=== PATIENT | female | born 1945 | race Caucasian/White ===

== ENCOUNTER → 2016-03-05 | Outpatient (REF) | payer MEDICARE ==
[~2016-03-05] MED LIST: /WARF25TA; 8 HO650T PO; ACET50TA PO; ACET50TAOT PO; ACET65TA; ALEN35TA PO; ALLO10TA PO; AMLO10TA PO; ASPI325T; ASPI81TA85 PO; ASPI81TAEC PO; BACITAB; BACITAB3 PO; BACT400T OR; CALC0.5C OR; CALC12502 OR; CALC1CAP31 PO; CALC500C16 PO; CIPR500T89 PO; COUM1TAB17 PO; COUM6TAB PO; CYCL10CAP PO; CYCL50CA PO; CYCLO25CA PO; DARV100T; DULO20CA; FLAG500T PO; FOLI1TAB OR; FOLI1TAB2 PO; FOSRENOL; FURO40TA2 PO; KEPP250T5 PO; KEPP500T6 PO; KPHOS PO; LASI40TA OR; LASI40TA PO; LOPR50TA PO; LUTE20CA PO; MAGN500T2 OR; MAGO400T PO; MED REC COMPLETE; MYFO180T PO; NEUR100C OR; NEUR300C PO; NORV5TAB PO; OMEP20CA3 PO; OMEP20TA7 PO; PERCOCET PO; POTA50TAB PO; PRED10TA2; PRED5TA PO; PRED5TAB OR; PRIL20CA; PROBCAP13; RENAL CAPS; RENVELA; SPIR25TA2 PO; TACR0.5C3 PO; TACR1CAP3 PO; TACR5CAP OR; TACROLIMUS PO; TRAM50TA2 PO; TUMS500C PO; TYLE325T5 PO; ULTR50TA PO; VANC250C2 PO; VITAMIN D50000 UNT OR; WARF05TA PO; WARF5VL; ZEMPLAR; ZYLO300T4 PO; myfortic OR; sensipar
[2016-03-05 13:29] LABS: INR 3.2
== END ==
LOC: M LAB REF 12:48
PROVIDERS: ATTEND Internal Medicine Nephrology
DX: I82.501 Chronic embolism and thrombosis of unspecified deep veins of right lower extremity (principal); Z79.01 Long term (current) use of anticoagulants

== ENCOUNTER → 2016-03-13 | Outpatient (REF) | payer MEDICARE ==
[~2016-03-13] MED LIST changes: +LOPR1TAB6 PO; -LOPR50TA PO
== END ==
LOC: M LAB REF 17:19
PROVIDERS: ATTEND Internal Medicine Nephrology
DX: N39.0 Urinary tract infection, site not specified (principal); Z94.0 Kidney transplant status

== ENCOUNTER → 2016-04-05 | Outpatient (REF) | payer MEDICARE ==
[2016-04-05 13:26] LABS: INR 2.6
== END ==
LOC: M LAB REF 12:44
PROVIDERS: ATTEND Internal Medicine Nephrology
DX: I82.501 Chronic embolism and thrombosis of unspecified deep veins of right lower extremity (principal); Z79.01 Long term (current) use of anticoagulants

== ENCOUNTER → 2016-04-18 | Outpatient (REF) | payer MEDICARE | LOC: M LAB REF 13:00 | PROVIDERS: ATTEND Internal Medicine Nephrology | DX: N39.0 Urinary tract infection, site not specified (principal); Z94.0 Kidney transplant status ==

== ENCOUNTER 2016-04-25 12:37 | Observation (INO) | payer MEDICARE ==
[~2016-04-25] VITALS: Ht 165.1 cm; Wt 85.0 kg
[2016-04-25] MEDS ORDERED: FERR325T3 PO (12:57)
[2016-04-25] MEDS ORDERED: FISH500C PO (12:57)
[2016-04-25] MEDS ORDERED: CYCL25CA5 PO (12:57)
[2016-04-25] MEDS ORDERED: AMIL5TA PO (12:57)
[2016-04-25] MEDS ORDERED: COLA100C3 PO (12:57)
[2016-04-25] MEDS ORDERED: METO12TA PO (12:57)
[2016-04-25] MEDS ORDERED: TYLE500T78 PO (12:57)
[2016-04-25] MEDS ORDERED: TRAM50TA2 PO (12:57)
[2016-04-25] MEDS ORDERED: WARF4TAB52 PO (12:57)
[2016-04-25] MEDS ORDERED: LOSA50TA20 PO (12:57)
[2016-04-25] MEDS ORDERED: OXYB10TA PO (12:57)
[2016-04-25] MEDS ORDERED: ONDANSETRON 4MG/2ML VIAL (J2405) IV ONE (14:30)
[2016-04-25 15:00] LABS: BASO % 0.3 % (0.0-1.0); EOS # 0.2 K/mm3 (0.0-0.50); LARGE UNSTAINED CELL # 0.1 K/mm3 (0.0-0.4); LARGE UNSTAINED CELL % 1.9 % (0.0-4.0); LYMPH # 1.3 K/mm3 (1.5-4.5); LYMPH % 17.8 % (24.0-44.0); MEAN CORPUSCULAR HEMOGLOBIN 31.5 pg (27.0-33.0); MEAN CORPUSCULAR HGB CONC 31.9 g/dl (32.0-36.5); MEAN CORPUSCULAR VOLUME 98.8 fl (80.0-96.0); MONO # 0.3 K/mm3 (0.0-0.8); MONO % 4.7 % (0.0-5.0); NEUTROPHILS # 5.3 K/mm3 (1.8-7.7); NEUTROPHILS % 73.3 % (36.0-66.0); PLATELET COUNT, AUTOMATED 221 k/mm3 (150-450); RED CELL DISTRIBUTION WIDTH 15.4 % (11.5-14.5); WHITE BLOOD COUNT 7.2 K/mm3 (4.0-10.0)
[2016-04-25 15:09] LABS: INR 2.9
[2016-04-25] MEDS: NS 1,000 ML IV SCH ×2 (15:17→21:55)
[2016-04-25] MEDS: MORPHINE 2 MG/ML 1ML SYRINGE IV PRN ×2 (15:21→18:38)
[2016-04-25 15:26] LABS: ALBUMIN 3.3 GM/DL (3.2-5.2); ALKALINE PHOSPHATASE 60 U/L (45-117); ALT/SGPT 17 U/L (12-78); ANION GAP 5 MEQ/L (8-16); AST/SGOT 21 U/L (15-37); BILIRUBIN,DIRECT 0.2 MG/DL (0.0-0.2); BILIRUBIN,TOTAL 0.6 MG/DL (0.2-1.0); BLOOD UREA NITROGEN 50 MG/DL (7-18); CARBON DIOXIDE LEVEL 28 MEQ/L (21-32); CHLORIDE LEVEL 105 MEQ/L (98-107); CREATININE FOR GFR 1.83 MG/DL (0.55-1.02); GLOMERULAR FILTRATION RATE 29.1 (>39); GLUCOSE, FASTING 108 MG/DL (83-110); POTASSIUM SERUM 4.5 MEQ/L (3.5-5.1); SODIUM LEVEL 138 MEQ/L (136-145); TOTAL PROTEIN 6.6 GM/DL (6.4-8.2)
--- NOTE | 2016-04-25 16:12 | REP ---
Left lower extremity Duplex Doppler venous ultrasound: Real time compression and duplex Doppler interrogation of the left lower extremity deep venous system is performed. The left common femoral, superficial femoral and popliteal veins are fully compressible with transducer pressure and demonstrate normal spontaneous and phasic flow, without evidence of deep venous thrombosis. Impression: No evidence of deep venous thrombosis of the left lower extremity femoral popliteal venous system. Signed by Narinder Garcia MD 04/25/2016 04:04 P
--- NOTE | 2016-04-25 16:36 | REP ---
CT ABDOMEN AND PELVIS WITHOUT IV CONTRAST: CT abdomen and pelvis is performed without oral or IV contrast. Sagittal and coronal reconstruction images are performed. Comparison is made with prior study of 10/20/2014. Visualized lung bases demonstrate chronic fibrotic changes of a mild degree. The liver demonstrates multiple hypodense nodules which measure cystic density with no change since the prior study. Scattered calcifications are also seen throughout the liver. The spleen is grossly unremarkable in appearance. Adrenals and pancreas are grossly unremarkable. No lower [place] kidneys are seen. Patient has had a cholecystectomy. Prominent common bile duct appears normal. There is no abdominal aortic aneurysm. There is no adenopathy. There is no free air or free fluid. There is no bowel wall thickening. Left renal transplant in the pelvis appears grossly unremarkable. There is no hydronephrosis or nephrolithiasis. Ureter connects with the bladder on the left anteriorly. There is no bladder calculus is seen. 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 There is no other evidence of pelvic mass. Chronic postsurgical scarring is seen in the anterior abdominal wall. IMPRESSION: Chronic changes of the liver appear stable since 2014. Left renal transplant without hydronephrosis or nephrolithiasis. No acute findings. Signed by Narinder Garcia MD 04/25/2016 05:25 P
--- NOTE | 2016-04-25 18:07 | ECGEPIP ---
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
[2016-04-25] MEDS ORDERED: ZYLO300T4 PO (18:51)
[2016-04-25] MEDS ORDERED: FISH1000 PO (18:51)
[2016-04-25] MEDS ORDERED: OXYC1TAB23 PO (18:51)
[2016-04-25] MEDS ORDERED: CYCLO25CA PO ×2 (18:51)
[2016-04-25] MEDS ORDERED: LEVO250T24 PO (18:51)
[2016-04-25] MEDS ORDERED: WARF-60 PO (18:51)
[2016-04-25] MEDS ORDERED: FURO40TA2 PO (18:51)
[2016-04-25] MEDS ORDERED: ACETAMINOPHEN TAB 650MG DOSE (2X325MG) PO PRN (20:30)
[2016-04-25] MEDS ORDERED: DOCUSATE SODIUM 100 MG CAP PO PRN (20:30)
[2016-04-25] MEDS ORDERED: ONDANSETRON 4MG/2ML VIAL (J2405) IV PRN (20:30)
--- NOTE | 2016-04-25 21:07 | HPE ---
DATE OF ADMISSION: 04/25/2016 This is a patient of Dr. Watts. CHIEF COMPLAINT: Pain in the abdomen. SUMMARY OF PRESENTATION: This is a 70-year-old female status post transplant kidney who started yesterday with some nausea. Developed left lower quadrant pain and right upper and lower quadrant pain. She says this has been an ongoing issue for a long time. It is usually associated with need for a bowel movement. It has been 3 days since her last bowel movement. This time was a little bit different, as the pain was somewhat more intense, and she was nauseous. Her made her come to the hospital today. She had a workup done, including imaging with a CT scan of her abdomen and pelvis, lab work and ultrasound of the left lower extremity, which has chronic lymphedema, which was unrevealing. The pain was immediately controlled with the use of morphine, which has made her much more comfortable. This morning when she awoke, she felt good, and then pain returned. In the last 2 days all she has eaten is a biscuit. She has been drinking water but has not been very hungry. She has chronic chills and a chronic cough that have not changed. She was worried that this presentation might be related to a chronic wound she has on her chest, the site of a surgical incision which does not heal well. PAST SURGICAL HISTORY: Notable for: 1. An esophagogastroduodenoscopy (EGD) and colonoscopy done in November [address] Lynn. 2. Removal of seroma in [address] Arana. 3. Aspiration of perirectal abscess in the [facility] (ER) in 2013 and 2012. 4. Ventral hernia repair with pig skin mesh graft in 2009. 5. Cadaveric kidney transplant. 6. Cataract removal with implants. 7. Parathyroid surgery 2007. 8. A temporal artery biopsy in 2005. 9. Laparoscopic gallbladder removal in 2004. 10. Perforated bowel following insertion of peritoneal dialysis catheter in 2002. 11. Left tear duct surgery in 2001. 12. Laparoscopic removal of [place] kidneys bilaterally in 1998. 13. Removal of kidney transplant, right groin, 1995. 14. Cadaveric kidney transplant to the right groin. 15. She also had removal of an intestinal bezoar that year. 16. She has had various grafting done. 17. A dilatation and curettage (DAC) in 1985. 18. An appendectomy in 1963. PAST MEDICAL HISTORY: Notable for: 1. Gout. 2. Polycystic liver and kidney disease. 3. Dialysis, which first started in 1993. 4. History of seizures. 5. Lymphedema in the left leg, which is chronic. 6. An episode of atrial fibrillation in 2005. 7. 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 9. Vertigo. 10. Glaucoma and macular degeneration. FAMILY HISTORY: Notable for a father who at age 67 with cancer of the esophagus and stomach. Mother at age 65 with complication of polycystic kidney disease. ALLERGIES: She has allergies listed to KEFLEX and CODEINE. MEDICATIONS AT HOME: Listed as: - Having completed a course of Levaquin. - Lutein. - allopurinol 300 mg daily - amiloride 5 mg daily - calcitriol 0.25 mcg five times weekly - cyclosporin 75 mg in the morning and 100 mg at bedtime - Colace 100 mg as needed for constipation - ferrous sulfate 325 mg daily - fish oil 1000 mg daily - folic acid 1 mg daily - Lasix 40 mg daily - Lactobacillus one tablet daily - losartan 50 mg daily - metoprolol tartrate 25 mg twice a day - Myfortic 180 mg twice a day - omeprazole 20 mg daily - oxybutynin 10 mg by mouth daily - Percocet one tablet by mouth daily - prednisone 5 mg daily chronically - Coumadin 6 mg by mouth at bedtime REVIEW OF SYSTEMS: Notable for no headache. No visual changes. No runny nose. No sore throat. No neck pain. She has a chronic dry cough. No shortness of breath. No chest pain. She has abdominal pain that is described. Chronic left lower extremity edema. She has a listed history of seizures; otherwise unremarkable. PHYSICAL EXAMINATION: Temperature is 97.9, pulse 68, respiratory rate 16, blood pressure is 116/66, 96% on room air. She is awake, engaging, pleasant conversant. Head is normocephalic. Sinuses nontender. Pupils equal, round, and reactive, anicteric. Not injected. Nasal septum is midline. Mucous membranes are moist. Neck is supple. No cervical or supraclavicular adenopathy. Breathing is symmetrical. Inspiratory to expiratory (I-to-E) ratio is 1:3. Heart appears to be in a regular rhythm. Is borderline bradycardic with a rate right around 60 on my exam. Radial pulse 2+. Capillary refill is less than 2 seconds. Abdomen is diffusely tender without rebound or guarding. The right lower quadrant seems to be associated with skin sensitivity and perhaps also in the right upper quadrant, which appears to be a deeper form of discomfort. There are hypoactive bowel sounds. Multiple surgical scars. In the medial aspect of the right lower quadrant there is a tiny ulcer, which is dry with a red base, nontender, nonfluctuant with no surrounding erythema. Left lower extremity is larger than the right. She is moving all four extremities. She has normal mood and affect. White count 7.2, hemoglobin 10.9, platelets 221. INR is 2.9. BUN 50, creatinine 1.83, which is apparently better than it has been recently. Most of her lab work has been done in Dr. Watts's office. UA is notable for trace leukocyte esterase, 4 whites, 1+ bacteria. Ultrasound of the left lower extremity shows no deep vein thrombosis (DVT). CT scan of the abdomen shows chronic changes of the liver. Left renal transplant without hydronephrosis or nephrolithiasis. No acute findings. ASSESSMENT: This is a 70-year-old status post renal transplant from polycystic kidney/liver disease who has worsening abdominal pain in the setting of chronic abdominal pain. Patient will be admitted to observation status and monitored clinically. PLAN: 1. Abdominal pain. I believe monitoring her at this point, making pain medicine available as needed is warranted. We did discuss the possibility of starting a bowel regimen, which has been problematic in the past. In looking at her medications, iron use, diuretic use, opiate use can certainly cause unusual bowel pattern. Patient was somewhat reluctant to take a new bowel regimen at this point, as she frequently has abdominal pain associated with constipation, and this is apparently different from that, and I tend to believe her. We did discuss the possibility of further imaging, which could possibly include an abdominal MRI. She was also somewhat reluctant to pursue that this evening. I believe a course of watchful waiting is perhaps prudent and will continue to monitor her in the hospital. 2. Patient has polycystic kidney disease, status post removal of polycystic kidneys with transplant at baseline level of function. I have asked Dr. Watts to see the patient in consultation. Will continue her Myfortic and cyclosporin. 3. Continue the patient's home diuretics and losartan as well as metoprolol with hold parameters for blood pressure. Blood pressure is a little softer this evening, and will monitor clinically. 4. Patient has gout. Continue allopurinol. 5. Patient has history of atrial fibrillation and is on Coumadin, which will be continued. INR is therapeutic. 6. Patient has an abdominal wound, which is relatively minor on physical exam. Will defer to Dr. Watts's input on that, as he has followed it for some time.
[2016-04-25 21:09] VITALS: BP 142/75
[2016-04-25] MEDS: WARFARIN SOD 3 MG TAB PO SCH (21:54)
[2016-04-25] MEDS: METOPROLOL TART 25 MG TABLET PO SCH (21:54)
[2016-04-25] MEDS: NEORAL 100 MG CAP (J7502)(C9438) PO SCH (21:54)
[2016-04-26] MEDS: MORPHINE 2 MG/ML 1ML SYRINGE IV PRN ×2 (02:11→16:56)
[2016-04-26 06:00] VITALS: BP 140/68
[2016-04-26 06:49] LABS: BASO % 0.4 % (0.0-1.0); EOS # 0.3 K/mm3 (0.0-0.50); EOS % 4.2 % (0.0-3.0); LARGE UNSTAINED CELL # 0.3 K/mm3 (0.0-0.4); LARGE UNSTAINED CELL % 3.9 % (0.0-4.0); LYMPH # 1.8 K/mm3 (1.5-4.5); LYMPH % 26.9 % (24.0-44.0); MEAN CORPUSCULAR HEMOGLOBIN 30.1 pg (27.0-33.0); MEAN CORPUSCULAR HGB CONC 30.1 g/dl (32.0-36.5); MEAN CORPUSCULAR VOLUME 99.9 fl (80.0-96.0); MONO # 0.5 K/mm3 (0.0-0.8); NEUTROPHILS # 3.8 K/mm3 (1.8-7.7); NEUTROPHILS % 56.7 % (36.0-66.0); PLATELET COUNT, AUTOMATED 218 k/mm3 (150-450); RED CELL DISTRIBUTION WIDTH 15.3 % (11.5-14.5); WHITE BLOOD COUNT 6.7 K/mm3 (4.0-10.0)
[2016-04-26 06:57] LABS: ALBUMIN 3.1 GM/DL (3.2-5.2); ALBUMIN/GLOBULIN RATIO 0.91 (1.00-1.93); BILIRUBIN,TOTAL 0.5 MG/DL (0.2-1.0); CALCIUM LEVEL 8.4 MG/DL (8.8-10.2); CREATININE FOR GFR 1.64 MG/DL (0.55-1.02); MAGNESIUM LEVEL 2.1 MG/DL (1.8-2.4); POTASSIUM SERUM 4.4 MEQ/L (3.5-5.1); TOTAL PROTEIN 6.5 GM/DL (6.4-8.2)
[2016-04-26] MEDS ORDERED: OMEGA-3 1050MG CAPSULE PO SCH (09:00)
[2016-04-26] MEDS ORDERED: FERROUS SULFATE 325MG TAB PO SCH (09:00)
[2016-04-26] MEDS: LACTOBACILLUS ACIDOPHILUS CAP (BACID) PO SCH (09:10)
[2016-04-26] MEDS: FUROSEMIDE 40 MG TAB PO SCH (09:10)
[2016-04-26] MEDS: FOLIC ACID 1 MG TAB PO SCH (09:10)
[2016-04-26] MEDS: CALCITRIOL 0.25 MCG CAP (S0169) PO SCH (09:10)
[2016-04-26] MEDS: aMILoride 5 MG TAB PO SCH (09:10)
[2016-04-26] MEDS: OMEPRAZOLE 20 MG CAP PO SCH (09:10)
[2016-04-26] MEDS: oxyBUTYnin *DITROPAN XL* 5 MG TABCR PO SCH (09:10)
[2016-04-26] MEDS: ALLOPURINOL 300 MG TAB PO SCH (09:10)
[2016-04-26] MEDS: predniSONE 5 MG TAB PO SCH (09:10)
[2016-04-26] MEDS: NEORAL 25 MG CAP (J7515) PO SCH (09:11)
[2016-04-26] MEDS: METOPROLOL TART 25 MG TABLET PO SCH ×2 (09:12→20:19)
[2016-04-26] MEDS: LOSARTAN 50 MG TAB PO SCH (09:13)
[2016-04-26] MEDS: NS 1,000 ML IV SCH (09:14)
[2016-04-26] MEDS: PERCOCET 5MG/325MG TAB PO SCH (09:14)
[2016-04-26 14:00] VITALS: BP 146/68
--- NOTE | 2016-04-26 14:31 | IPNPDOC ---
Subjective Date Seen The patient was seen on 04/26/16. Subjective Chief Complaint/HPI The patient is a 70-year-old female admitted with a reason for visit of Abd Pain. Events since last encounter no BM for 3 days, reported nausea, no vomiting, making urine, reported abd pain. Denied CP/pal/f/c Objective Physical Examination General Exam: Positive: Alert, Cooperative, No Acute Distress Eye Exam: Positive: Conjunctiva & lids normal, EOMI, PERRLA ENT Exam: Positive: Atraumatic, Mucous membr. moist/pink Neck Exam: Positive: Supple Chest Exam: Positive: Clear to auscultation, Normal air movement, Negative: Rales, Rhonchi, Wheezing Heart Exam: Positive: Normal S1, Normal S2, Rate Normal, Regular Rhythm Abdomen Exam: Positive: BS Hypoactive, Soft, Tenderness, Negative: Mass Extremity Exam: Negative: Clubbing, Cyanosis, Edema Assessment /Plan Problems (1) Abdominal pain Status: Acute Problem Text: Diarrhea resolved, con't pain med CT appreciated Acute on chronic GI issue, follows Dr Lynn as outpatient, Dr Palomino consulted IVF monitor kidney function given transplanted kidney (2) Diarrhea Status: Chronic Problem Text: resolved (3) AF (atrial fibrillation) Status: Chronic Problem Text: BB, coumadin f/u inr (4) CKD (chronic kidney disease) stage 3, GFR 30-59 ml/min Status: Chronic Problem Text: h/o polycystic kidney disease, transplanted kidney 2009 con't current medication nephrology consulted IVF monitor bun/cr (5) DVT (deep venous thrombosis) Status: Chronic Problem Text: coumadin f/u inr (6) Seizure Status: Chronic Problem Text: f/u outpatient (7) Block esophagus Status: Chronic Problem Text: ppi (8) Hypertension Status: Chronic Problem Text: c/w meds Plan/VTE VTE Prophylaxis Ordered?: Yes (coumadin) Disposition GI consult, clinical improvement VS, I&O, 24H, Saqib Vital Signs/I&O Vital Signs Date Time Temp Pulse Resp B/P Pulse Ox O2 Delivery O2 Flow Rate FiO2 04/26/16 10:05 20 04/26/16 09:13 128/62 04/26/16 09:12 54 04/26/16 06:00 96.5 100 Room Air I&O- Last 24 Hours up to 6 AM 04/26/16 06:00 Intake Total 0 ml Output Total 600 ml Balance -600 ml Laboratory Data 24H LABS Laboratory Tests 2 04/25/16 14:39: Aspartate Amino Transf (AST/SGOT) 21, Alanine Aminotransferase (ALT/SGPT) 17, Alkaline Phosphatase 60, Total Bilirubin 0.6, Direct Bilirubin 0.2, Albumin 3.3 , Albumin/Globulin Ratio 1.00, Anion Gap 5L, White Blood Count 7.2, Red Blood Count 3.46L, Hemoglobin 10.9L, Hematocrit 34.2L, Mean Corpuscular Volume 98.8H, Mean Corpuscular Hemoglobin 31.5, Mean Corpuscular Hemoglobin Concent 31.9L, Red Cell Distribution Width 15.4H, Platelet Count 221, Neutrophils (%) (Auto) 73.3H, Lymphocytes (%) (Auto) 17.8L, Monocytes (%) (Auto) 4.7, Eosinophils (%) ( Auto) 2.0, Basophils (%) (Auto) 0.3, Neutrophils # (Auto) 5.3, Lymphocytes # ( Auto) 1.3L, Monocytes # (Auto) 0.3, Eosinophils # (Auto) 0.2, Basophils # (Auto ) 0.0, Calcium Level 9.0, Creatine Kinase MB 1.0, Creatine Kinase MB Relative Index 0.97, Glomerular Filtration Rate 29.1L, Large Unclassified Cells # 0.1, Large Unclassified Cells % 1.9, Lipase 134, Prothromb Time International Ratio 2.90, Prothrombin Time 30.4H, Total Creatine Kinase 103, Total Protein 6.6, Troponin I < 0.02 04/25/16 14:40: Lactic Acid (Sepsis) 0.7 04/25/16 15:30: Urine Amorphous Sediment , Urine Appearance CLEAR, Urine Color STRAW, Urine pH 5.0, Urine Specific [place] 1.006, Urine Protein NEGATIVE, Urine Glucose (UA) NEGATIVE, Urine Ketones NEGATIVE, Urine Urobilinogen 0.2, Urine Bilirubin NEGATIVE, Urine Leukocyte Esterase TRACEH, Urine Bacteria (Auto) 1+H, Urine Blood NEGATIVE, Urine Calcium Carbonate Cryst(Auto) , Urine Calcium Oxalate Cryst (Auto) , Urine Calcium Phosphate Al[place] (Auto) , Urine Cellular Casts , Urine Cystine Crystals , Urine Granular Casts (Auto) , Urine Hyaline Casts (Auto ) 7, Urine Leucine Crystals , Urine Mucus (Auto) , Urine Nitrite NEGATIVE, Urine Oval Fat Bodies (Auto) , Urine RBC (Auto) 0, Urine Renal Epithelial Cells , Urine Sperm (Auto) , Urine Squamous Epithelial Cells 1, Urine Transitional Epithelial Cells , Urine Trichomonas (Auto) , Urine Triple Phosphate Cryst (Auto ) , Urine Tyrosine Crystals , Urine Uric Acid Crystals (Auto) , Urine WBC (Auto ) 4H, Urine Waxy Casts (Auto) , Urine Yeast-Like Cells (Auto) 04/26/16 06:20: Aspartate Amino Transf (AST/SGOT) 22, Alanine Aminotransferase (ALT/SGPT) 22, Alkaline Phosphatase 63, Total Bilirubin 0.5, Albumin 3.1L, Albumin/Globulin Ratio 0.91L, Anion Gap 9, White Blood Count 6.7, Red Blood Count 3.59L, Hemoglobin 10.8L, Hematocrit 35.8L, Mean Corpuscular Volume 99.9H, Mean Corpuscular Hemoglobin 30.1, Mean Corpuscular Hemoglobin Concent 30.1L, Red Cell Distribution Width 15.3H, Platelet Count 218, Neutrophils (%) (Auto) 56.7, Lymphocytes (%) (Auto) 26.9, Monocytes (%) (Auto) 8.0H, Eosinophils (%) (Auto) 4.2H, Basophils (%) (Auto) 0.4, Neutrophils # (Auto) 3.8, Lymphocytes # (Auto) 1.8, Monocytes # (Auto) 0.5, Eosinophils # (Auto) 0.3, Basophils # (Auto) 0.0, Calcium Level 8.4L, Glomerular Filtration Rate 33.0L, Large Unclassified Cells # 0.3, Large Unclassified Cells % 3.9, Total Protein 6.5, Blood Urea Nitrogen 43H, Creatinine 1.64H, Sodium Level 142, Potassium Level 4.4, Chloride Level 109H, Carbon Dioxide Level 24, Magnesium Level 2.1 CBC/BMP Laboratory Tests 04/25/16 14:39 Red Blood Count 3.46 L, Mean Corpuscular Volume 98.8 H, Mean Corpuscular Hemoglobin 31.5, Mean Corpuscular Hemoglobin Concent 31.9 L, Red Cell Distribution Width 15.4 H, Neutrophils (%) (Auto) 73.3 H, Lymphocytes (%) (Auto ) 17.8 L, Monocytes (%) (Auto) 4.7, Eosinophils (%) (Auto) 2.0, Basophils (%) ( Auto) 0.3, Neutrophils # (Auto) 5.3, Lymphocytes # (Auto) 1.3 L, Monocytes # ( Auto) 0.3, Eosinophils # (Auto) 0.2, Basophils # (Auto) 0.0 04/26/16 06:20 Red Blood Count 3.59 L, Mean Corpuscular Volume 99.9 H, Mean Corpuscular Hemoglobin 30.1, Mean Corpuscular Hemoglobin Concent 30.1 L, Red Cell Distribution Width 15.3 H, Neutrophils (%) (Auto) 56.7, Lymphocytes (%) (Auto) 26.9, Monocytes (%) (Auto) 8.0 H, Eosinophils (%) (Auto) 4.2 H, Basophils (%) ( Auto) 0.4, Neutrophils # (Auto) 3.8, Lymphocytes # (Auto) 1.8, Monocytes # (Auto ) 0.5, Eosinophils # (Auto) 0.3, Basophils # (Auto) 0.0, Calcium Level 8.4 L, Aspartate Amino Transf (AST/SGOT) 22, Alanine Aminotransferase (ALT/SGPT) 22, Alkaline Phosphatase 63, Total Bilirubin 0.5, Total Protein 6.5, Albumin 3.1 L Microbiology Microbiology 04/25/16 Urine Culture - Final, Complete RADHA MENJIVAR MD Apr 26, 2016 14:31
[2016-04-26] MEDS: WARFARIN SOD 3 MG TAB PO SCH (16:55)
[2016-04-26 20:10] VITALS: BP 120/80
[2016-04-26] MEDS: NEORAL 100 MG CAP (J7502)(C9438) PO SCH (20:19)
[2016-04-26] MEDS: SENOKOT S TAB PO SCH (20:19)
[2016-04-27 05:10] VITALS: BP 147/65
[2016-04-27] MEDS ORDERED: VANCOMYCIN ORAL SOL 250MG/5ML ORAL SYRINGE PO SCH ×2 (06:00→16:00)
[2016-04-27 07:03] LABS: INR 2.99
[2016-04-27 07:18] LABS: ALBUMIN/GLOBULIN RATIO 0.83 (1.00-1.93); BILIRUBIN,TOTAL 0.4 MG/DL (0.2-1.0); CALCIUM LEVEL 8.4 MG/DL (8.8-10.2); CREATININE FOR GFR 1.69 MG/DL (0.55-1.02); GLOMERULAR FILTRATION RATE 31.8 (>39); MAGNESIUM LEVEL 2.1 MG/DL (1.8-2.4); POTASSIUM SERUM 4.6 MEQ/L (3.5-5.1); TOTAL PROTEIN 6.6 GM/DL (6.4-8.2)
[2016-04-27 07:30] LABS: BASO % 0.5 % (0.0-1.0); EOS # 0.3 K/mm3 (0.0-0.50); EOS % 3.3 % (0.0-3.0); LARGE UNSTAINED CELL # 0.1 K/mm3 (0.0-0.4); LARGE UNSTAINED CELL % 1.7 % (0.0-4.0); LYMPH # 1.8 K/mm3 (1.5-4.5); LYMPH % 19.8 % (24.0-44.0); MEAN CORPUSCULAR HEMOGLOBIN 31.9 pg (27.0-33.0); MEAN CORPUSCULAR HGB CONC 31.3 g/dl (32.0-36.5); MEAN CORPUSCULAR VOLUME 102.2 fl (80.0-96.0); MONO # 0.7 K/mm3 (0.0-0.8); MONO % 8.6 % (0.0-5.0); NEUTROPHILS # 5.4 K/mm3 (1.8-7.7); PLATELET COUNT, AUTOMATED 201 k/mm3 (150-450); RED CELL DISTRIBUTION WIDTH 15.5 % (11.5-14.5); WHITE BLOOD COUNT 8.2 K/mm3 (4.0-10.0)
--- NOTE | 2016-04-27 07:41 | CR ---
DATE OF CONSULTATION: 04/26/2016 Nephrology consultation for Elida Srivastava MD. Reason for consultation is abdominal pain in this lady with kidney transplant. HISTORY OF PRESENT ILLNESS: Ms. Slaughter is a 70-year-old female very well-known to me. She has known history of end-stage renal disease secondary to polycystic kidneys, status post bilateral [place] kidney nephrectomy and status post second kidney transplant. She also had a transplant nephrectomy previously. Patient is admitted with right upper quadrant and left lower quadrant abdominal pain associated with diarrhea and poor appetite. She did not have any fever or chills. I discussed the case with the emergency room physician over the phone last evening. Patient also had acute kidney injury with increase in BUN and creatinine from her prior baseline. She is being hydrated with intravenous (IV) fluid. Patient is seen this morning on her bedside. PAST MEDICAL AND SURGICAL HISTORY: Significant for: 1. History of end-stage renal disease secondary to polycystic kidney disease. 2. History of hypertension. 3. History of kidney transplant twice. 3. History of bilateral nephrectomy for [place] kidneys. 4. History of AV fistula creation. 5. History of anemia of chronic kidney disease. 6. Secondary hyperparathyroidism. 7. History of deep venous thrombosis (DVT) in left leg. 8. History of chronic lower extremity edema with venous stenosis and lymphatic edema. 9. History of hyperparathyroidism. 10. History of gout. 11. History of seizures, which was related to use of tacrolimus. 12. History of Block's esophagus. 13. History of atrial fibrillation briefly. 14. History of glaucoma and macular degeneration. Past surgical history is quite extensive and include: 1. Upper endoscopy and colonoscopy. 2. History of removal of a seroma 3. History of aspiration of a perirectal abscess. 4. Ventral hernia repair. 5. History of cadaver kidney transplant. 6. History of cataract removal with implants. 7. History of parathyroid surgery. 8. History of temporal artery biopsy. 9. History of gallbladder removal. 10. History of perforated bowel following insertion of peritoneal dialysis catheter, status post bowel resection. 11. History of left tear duct surgery. 12. History of bilateral [place] kidney nephrectomy. 13. History of a transplant nephrectomy. 14. History of removal of intestinal bezoar. 15. History of AV graft surgery. 16. History of dilation and curettage. 17. Appendectomy. MEDICATIONS: Her home medications include: - allopurinol 300 mg daily - amiloride 5 mg daily - calcitriol 0.25 mcg five times a week - cyclosporin 75 mg daily in the a.m. and 100 mg in p.m. - Colace 100 mg as needed for constipation - ferrous sulfate 325 mg daily - fish oil 1000 mg daily - folic acid 1 mg daily - Lasix 40 mg daily - lactobacillus one tablet daily - losartan 50 mg daily - metoprolol 25 mg twice a day - Myfortic 180 mg twice a day - omeprazole 20 mg daily - Percocet as needed for pain - prednisone 5 mg daily - Coumadin 6 mg daily - She also uses oxybutynin 10 mg daily. ALLERGIES: Patient has allergy to KEFLEX and CODEINE. PERSONAL AND SOCIAL HISTORY: Patient is and lives with her . She does not smoke or drink. No recreational drug use. Family history is unremarkable for end-stage renal disease. REVIEW OF SYSTEMS: Patient denies any fever or chills. Ears, nose and throat are unremarkable. She did have headaches in the past, which has now resolved. Cardiovascular system negative for dyspnea or chest pain. Respiratory system is negative for cough or hemoptysis. Gastrointestinal (GI) system is as per history of present illness. She has no nausea or vomiting. She does get explosive diarrhea, which helps to resolve her pain. This time her pain did not improve. She has had colonoscopy in recent past. Endocrine system is significant for hypothyroidism and secondary hyperparathyroidism. Psychosocial system is negative for depression or anxiety. Neurological system is significant for peripheral neuropathy. Hematological system is significant for chronic anticoagulation and anemia. Musculoskeletal system is significant for chronic lymphatic edema on lower extremities and a history of DVT. Skin is negative for rash or ulcers. Neurological system is also significant for one episode of seizures, which was felt to be related to tacrolimus use. PHYSICAL EXAMINATION: At the time of my visit this morning, patient is sitting in the chair. She reports that she did have another loose stool this morning. Temperature is 96.6 degrees Fahrenheit, heart rate 68 per minute and respiratory rate 18 per minute. Blood pressure 146/68 mmHg and oxygen saturation is 100% on room air. Head is atraumatic. Pupils are equal and reactive to light and sclera is anicteric. Ears, nose and throat are unremarkable. Neck is supple and without JVD or thyroid enlargement. Heart sounds are regular with a systolic murmur grade 2/6. Lungs: Clear to auscultation bilaterally. Abdomen is soft with tenderness in right upper quadrant and left lower quadrant, which is mostly on her transplant kidney. There is no other palpable organomegaly but her transplant kidney in left lower quadrant, which is mostly nontender except one spot, which is about 1 cm area where she felt tenderness. Bowel sounds are normal. Extremities have no cyanosis or clubbing. She does have chronic lymphatic edema on her left lower extremity. Skin is negative for rash or ulcers. Neurologically, she is awake, alert and oriented times three. She has no focal deficit. LABORATORY DATA: On admission, WBC count 7.2, hemoglobin 10.9 and hematocrit 34.2. Sodium was 138 and potassium 4.5. BUN 50 and creatinine 1.83. This morning her BUN down to 43 and creatinine 1.64. Glucose 86 and calcium 8.4. A lactic acid level is 0.7. Sodium 140 and potassium 4.4. Total protein 6.5 and albumin 3.1. Urinalysis showed only 4 WBCs and zero RBC. INR was 2.90. CT scan of abdomen and pelvis done in the emergency room last evening showed polycystic liver, absent [place] kidneys, left renal transplant without hydronephrosis or nephrolithiasis. There is no bowel wall thickening, and a failed right renal transplant with a calcific rim is again noted. PROBLEMS: 1. Acute kidney injury superimposed on chronic kidney disease. Most likely related to dehydration caused by diarrhea. With IV fluid, her kidney function has improved. At present, she is tolerating oral intake well and I will stop her IV fluid due to history of chronic lower extremity edema. 2. Status post kidney transplant. Patient has been doing well and her transplant kidney is functioning at about baseline. I suggest to continue with chronic immunosuppressive therapy. 3. Abdominal pain. Most likely this is related to bowel issue. She does get severe pain followed by diarrhea, which resolves. CT scan of abdomen and pelvis is negative for any bowel wall thickening or any other pathology. She does have old right lower quadrant calcific transplant kidney, which is not the site of her tenderness. Tenderness on a small area on the left lower quadrant transplant kidney is probably nonspecific and likely in the abdominal wall. At this point, her urinalysis is unremarkable and she does not seem to have any evidence for acute pyelonephritis or acute rejection. I would suggest to continue with symptomatic treatment while she is being monitored. 4. Gout. She is currently asymptomatic and suggest to continue with allopurinol. 5. Anemia. Her anemia has improved and stable. I suggest to stop her ferrous sulfate supplement as it might be contributing to her GI symptoms. 6. Hyperlipidemia. I am going to stop her fish oil due to possible GI symptoms related to use of fish oil capsules. We will monitor her lipids as an outpatient. 7. Hypertension. Her blood pressure control is optimal on current antihypertensive medications, which should be continued. I thank you for involving me in the care of Mrs. Slaughter. I will follow her along with you. ZARINA
[2016-04-27] MEDS: CALCITRIOL 0.25 MCG CAP (S0169) PO SCH (08:20)
[2016-04-27] MEDS: ALLOPURINOL 300 MG TAB PO SCH (08:20)
[2016-04-27] MEDS: LACTOBACILLUS ACIDOPHILUS CAP (BACID) PO SCH (08:20)
[2016-04-27] MEDS: NEORAL 25 MG CAP (J7515) PO SCH (08:20)
[2016-04-27] MEDS: LOSARTAN 50 MG TAB PO SCH (08:20)
[2016-04-27 08:21] VITALS: BP 110/72
[2016-04-27] MEDS: METOPROLOL TART 25 MG TABLET PO SCH (08:21)
[2016-04-27] MEDS: predniSONE 5 MG TAB PO SCH (08:21)
[2016-04-27] MEDS: oxyBUTYnin *DITROPAN XL* 5 MG TABCR PO SCH (08:21)
[2016-04-27] MEDS: SENOKOT S TAB PO SCH (08:21)
[2016-04-27] MEDS: OMEPRAZOLE 20 MG CAP PO SCH (08:21)
[2016-04-27] MEDS: aMILoride 5 MG TAB PO SCH (08:21)
[2016-04-27] MEDS: FOLIC ACID 1 MG TAB PO SCH (08:21)
[2016-04-27] MEDS: FUROSEMIDE 40 MG TAB PO SCH (08:21)
[2016-04-27] MEDS: PERCOCET 5MG/325MG TAB PO SCH (08:22)
[2016-04-27] MEDS ORDERED: FIDAXOMICIN 200 MG TAB (DIFICID) PO SCH (09:00)
[2016-04-27] MEDS ORDERED: VANC250C2 PO (10:02)
[2016-04-27] MEDS ORDERED: BACITAB3 PO (10:02)
[2016-04-27] MEDS ORDERED: VANC50SOL PO ×2 (12:24→12:25)
[2016-04-27 13:38] VITALS: BP 138/72
[2016-04-27] MEDS ORDERED: WARFARIN SOD 5 MG TAB PO SCH (17:00)
--- NOTE | 2016-04-27 20:53 | IPN ---
DATE: 04/27/2016 Mrs. Slaughter is seen this morning on her bedside. She was admitted with diarrhea and abdominal pain. Her stool tested positive for Clostridium (C) difficile. She has a history of C difficile about a year ago and has been doing well since then. She was recently treated for urinary tract infection twice, which most likely contributed to recurrence of C difficile. In any event, she is feeling better today and denies any nausea, vomiting or diarrhea. She has been placed on oral vancomycin since yesterday. Her other issue was abdominal pain, which has already improved. PHYSICAL EXAMINATION: Temperature 97.3 degrees Fahrenheit, heart rate 68 per minute and respiratory rate 18 per minute. Blood pressure 110/72 mmHg and oxygen saturation 98% on room air. Her head is atraumatic. Ears, nose and throat are unremarkable. Pupils equal and reactive to light and sclera is anicteric. Neck is supple and without jugular venous distention (JVD) or thyroid enlargement. Heart sounds regular and lungs clear to auscultation. Abdomen is soft and mildly tender. Bowel sounds present. Extremities are without cyanosis or clubbing. Today's laboratories show WBC count 8.2, hemoglobin 11.5 and hematocrit 36.8. Sodium 141 and potassium 4.6. BUN 46 and creatinine 1.69. PROBLEMS: 1. Acute renal failure superimposed on chronic kidney disease. Likely caused by dehydration. Kidney function is now at about her prior baseline. She is not receiving any IV fluid. I would recommend to resume her chronic diuretic at the time of discharge. 2. Diarrhea with C diff positive stools. The patient is immunocompromised due to kidney transplant and recent use of antibiotic probably contributed to her C difficile colitis. I recommend to continue treatment with oral vancomycin, and she will be followed up as an outpatient. I have discussed with her other options, including stool transplant; however, I feel that she is likely to respond to medications. 3. Kidney transplant status. Transplant function is at about its baseline. She will continue with chronic immunosuppressive therapy as prior to admission. She will be followed up as an outpatient. 4. Hypertension. Blood pressure control is optimal on current antihypertensives, which will be continued. 5. Gout. The patient has been doing well and will continue with current medications. She has not had any recent gout flares. She is on allopurinol 300 mg daily, which will be continued. 6. Secondary hyperparathyroidism. The patient has been on calcitriol 0.25 mcg 5 days a week, which will be continued. DISPOSITION: From a renal standpoint, the patient can be discharged to home today, and she will followup in my office next week where she already has an appointment scheduled.
--- NOTE | 2016-04-29 10:15 | DSES ---
DATE OF ADMISSION: 04/25/2016 DATE OF DISCHARGE: 04/27/2016 FINAL DIAGNOSES: 1. Clostridium (C) difficile colitis. 2. History of polycystic kidney disease with removal of the kidney and renal transplant. 3. Gout. 4. Diarrhea. 5. Atrial fibrillation. 6. Chronic kidney disease. 7. Deep venous thrombosis (DVT). 8. Seizure. 9. Block esophagus. 10. Hypertension. HISTORY OF PRESENT ILLNESS: This is a 70-year-old female patient, status post transplant kidney, who started to have some nausea the day before admission. Developed left lower quadrant pain and right upper and lower quadrant pain. Says this has been an ongoing issue for a long time. It is usually associated with the need for a bowel movement. It has been 3 days since her last bowel movement, but prior to this, she was having some diarrhea, which she took some Imodium; and as per the patient, this time the pain was somewhat more intense, and she felt nauseous. Her made her come to the hospital. She had a workup done, including imaging study with a CT scan of the abdomen and pelvis, laboratory work, ultrasound of the left lower extremities, which has chronic lymphedema, which was unrevealing. The pain was immediately controlled with the use of morphine and much more comfortable in the emergency department (ED). The patient reported has chronic chills and chronic cough, has not changed. She was also worried that she has a chronic wound that is on her chest, the site of a surgical incision that has not healed well. The patient reported recently treated for urinary tract infection (UTI). HOSPITAL COURSE: The patient was admitted to the hospital. Nephrology, Dr. Watts, was consulted for management of the patient's transplanted kidney and chronic kidney disease. Intravenous (IV) fluids were given. Gastrointestinal (GI) panel was ordered. Ultrasound Doppler and CT abdomen was done. The patient's condition progressively improved; and on day #2 of hospital stay, the patient's GI panel came back C. difficile. The case was discussed with Dr. Lynn. The patient was restarted on vancomycin. This is the second relapse. Arrangements are made for the patient. The patient currently tolerating oral, comfortable. Ready for discharge, and arrangements are made for the patient. Patient and family services (PFS) consulted. Arrangements are made for the patient to have home vancomycin oral, and prior authorization was obtained. Vital signs: Temperature 96.3, pulse 53, respiration 18, blood pressure 138/72, pulse oximetry 99%. LABORATORY: WBC 8.2, hemoglobin and hematocrit 11.5 over 36.8, platelets 201. Chemistry: Sodium 141, potassium 4.6, chloride 108, bicarbonate 25, BUN 46, creatinine 1.69. DISCHARGE MEDICATIONS: - vancomycin 250 mg by mouth every 8 hours for 14 days - allopurinol 300 mg by mouth daily - amiloride 5 mg by mouth daily - calcitriol 0.25 mcg by mouth five times a week - cyclosporin 75 mg by mouth in the a.m. and 100 mg by mouth nightly - Colace 100 mg by mouth daily - ferrous sulfate 325 mg by mouth daily - fish oil 1000 mg by mouth daily - folic acid 1 mg by mouth daily - Lasix 40 mg by mouth daily - losartan 50 mg by mouth daily - metoprolol 25 mg by mouth twice a day - Myfortic 180 mg by mouth twice a day - omeprazole 20 mg by mouth daily - oxybutynin 10 mg by mouth daily - Percocet 5/325 mg by mouth daily - prednisone 5 mg by mouth daily - lutein 20 mg by mouth daily - Coumadin 6 mg by mouth nightly - Bacid probiotics one tablet by mouth three times a day DISCHARGE INSTRUCTIONS: The patient is instructed to followup with Dr. Lynn in 1-2 weeks and primary care provider and Dr. Watts in about 7 days. Return to the hospital if symptoms worsen.
== END 2016-04-27 13:50 | disposition home or self-care (01) ==
LOC: M ED 13:51 → M ED INP 20:19 → M MSPAV 21:09
PROVIDERS: ADMIT Internal Medicine; ATTEND Hospitalist
DX: A04.7 Enterocolitis due to Clostridium difficile (principal); N17.9 Acute kidney failure, unspecified; E86.0 Dehydration; Z94.0 Kidney transplant status; D63.1 Anemia in chronic kidney disease; R19.7 Diarrhea, unspecified; M10.9 Gout, unspecified; I48.91 Unspecified atrial fibrillation; N18.3 Chronic kidney disease, stage 3 (moderate); Z79.01 Long term (current) use of anticoagulants; Z86.79 Personal history of other diseases of the circulatory system; R56.9 Unspecified convulsions; K22.70 Barrett's esophagus without dysplasia; I10 Essential (primary) hypertension; R22.42 Localized swelling, mass and lump, left lower limb; Z88.1 Allergy status to other antibiotic agents; Z88.8 Allergy status to other drugs, medicaments and biological substances; Z79.899 Other long term (current) drug therapy; R79.89 Other specified abnormal findings of blood chemistry
CPT/HCPCS: 36415; 74176; 80048; 80053; 80076; 81001; 82550; 82553; 83605; 83690; 83735; 84484; 85025; 85610; 87086; 87507; 93005; 93041; 93971; 96376; 99285; G0378; J2405; J7502; J7515

== ENCOUNTER → 2016-05-04 | Outpatient (REF) | payer MEDICARE ==
[~2016-05-04] MED LIST changes: +AMIL5TA PO; +COLA100C PO; +CYCL25CA5 PO; +FERR325T3 PO; +FISH1000 PO; +FISH500C PO; +LEVO250T24 PO; +LOSA50TA20 PO; +METO12TA PO; +OXYB10TA PO; +OXYC1TAB23 PO; +TYLE500T78 PO; +VANC50SOL PO; +WARF-60 PO; +WARF4TAB52 PO
[2016-05-04 14:31] LABS: FREE T4 0.94 NG/DL (0.76-1.46); INR 2.25
== END ==
LOC: M LAB REF 13:52
PROVIDERS: ATTEND Internal Medicine Nephrology
DX: E03.9 Hypothyroidism, unspecified (principal)

== ENCOUNTER → 2016-05-30 | Outpatient (REF) | payer MEDICARE ==
[~2016-05-30] MED LIST changes: -COLA100C PO; +COLA100C3 PO
== END ==
LOC: M SFHCWAGY 12:59
PROVIDERS: ATTEND Nurse Practitioner Women's Health
DX: R30.0 Dysuria (principal)
CPT/HCPCS: 81002; 87070; 87077; 87088; 87186; G0463

== ENCOUNTER → 2016-06-04 | Outpatient (REF) | payer MEDICARE ==
[2016-06-04 14:34] LABS: INR 2.14
== END ==
LOC: M LAB REF 12:51
PROVIDERS: ATTEND Internal Medicine Nephrology
DX: Z51.81 Encounter for therapeutic drug level monitoring (principal); Z79.01 Long term (current) use of anticoagulants; Z48.22 Encounter for aftercare following kidney transplant; I82.501 Chronic embolism and thrombosis of unspecified deep veins of right lower extremity

== ENCOUNTER 2016-06-08 06:38 | Emergency (ER) | payer MEDICARE ==
[~2016-06-08] VITALS: Ht 165.1 cm; Wt 84.4 kg
[2016-06-08] MEDS ORDERED: PERCOCET 5MG/325MG TAB PO ONE (07:30)
--- NOTE | 2016-06-08 08:26 | REP ---
Right knee series, complete: 06/08/2016. Comparison 06/01/2014. Clinical history: Atraumatic knee pain. Findings: Five views are provided. The bones are demineralized. There are degenerative changes with small osteophytes at all joint margins. Some mild chondrocalcinosis in the medial and lateral compartments. No definite joint effusion, fracture, loose body, or osteochondral defect. There are calcifications throughout the femoral popliteal arteries and their branches. No visible or displaced fracture nor avulsion. Impression: 1. Mild tricompartment spurring with chondrocalcinosis representing CPPD arthritis (pseudogout). 2. No joint effusion, loose body, osteochondral defect, fracture or other acute finding. Signed by Anthony Luther MD 06/08/2016 02:58 P
--- NOTE | 2016-06-08 08:28 | REP ---
RIGHT LOWER EXTREMITY DOPPLER VENOUS ULTRASOUND: 06/08/2016. Comparison: 11/26/2014. Clinical history: Calf pain, evaluate for DVT. Technique: The deep venous system of the right lower extremity is evaluated with iqbal scale imaging, compression ultrasound, color imaging and duplex Doppler interrogation. Examination from the groin through the popliteal fossa into the proximal calf. Findings: There is full compressibility from the common femoral vein in the inguinal region through the popliteal vein. Color imaging confirms patency throughout the course of the deep venous system. There is respiratory variation and augmented flow at all levels. Medial to the femoral condyle above the patella are small fluid collections consistent with a joint effusion in the suprapatellar bursa and bursal extension around the medial femoral condyle. Incidentally noted was a varicosity about the knee as well. Impression: 1. No Doppler venous ultrasound evidence of DVT in the right lower extremity. 2. Suspected joint effusion. Anterior varicosity noted about the knee. It was patent without thrombus. Signed by Anthony Luther MD 06/08/2016 02:58 P
[2016-06-08 08:47] VITALS: BP 148/76
== END 2016-06-08 08:48 | disposition home or self-care (01) ==
LOC: M ED 07:24
DX: M11.261 Other chondrocalcinosis, right knee (principal); I10 Essential (primary) hypertension; K21.9 Gastro-esophageal reflux disease without esophagitis; R56.9 Unspecified convulsions; Z94.0 Kidney transplant status; Q44.6 Cystic disease of liver; Z86.718 Personal history of other venous thrombosis and embolism; Z79.899 Other long term (current) drug therapy; Z79.01 Long term (current) use of anticoagulants; Z79.52 Long term (current) use of systemic steroids; Z88.1 Allergy status to other antibiotic agents; Z88.5 Allergy status to narcotic agent

== ENCOUNTER → 2016-07-04 | Outpatient (REF) | payer MEDICARE ==
[2016-07-04 13:30] LABS: INR 2.72
== END ==
LOC: M LAB REF 12:58
PROVIDERS: ATTEND Internal Medicine Nephrology
DX: I82.501 Chronic embolism and thrombosis of unspecified deep veins of right lower extremity (principal); Z48.22 Encounter for aftercare following kidney transplant; Z94.0 Kidney transplant status; Z79.01 Long term (current) use of anticoagulants

== ENCOUNTER → 2016-08-08 | Outpatient (REF) | payer MEDICARE ==
[2016-08-08 13:32] LABS: INR 2.3
== END ==
LOC: M LAB REF 12:55
PROVIDERS: ATTEND Internal Medicine Nephrology
DX: Z79.01 Long term (current) use of anticoagulants (principal); I82.501 Chronic embolism and thrombosis of unspecified deep veins of right lower extremity

== ENCOUNTER → 2016-09-13 | Outpatient (REF) | payer MEDICARE ==
[~2016-09-13] MED LIST changes: -8 HO650T PO; +8 HO650T2 PO; +BACITAB PO; -BACITAB3 PO; +CIPR-249 PO; -CIPR500T89 PO; -COLA100C3 PO; +COLA100C5 PO; +CYCL1CAP4 PO; -CYCL50CA PO; -FOLI1TAB2 PO; +FOLI1TAB4 PO; +KEPP1TAB PO; -KEPP500T6 PO; +LEVO250T12 PO; -LEVO250T24 PO; -METO12TA PO; +METO1TAB87 PO; -ULTR50TA PO; +ULTR50TA8 PO
[2016-09-13 14:32] LABS: INR 1.99
== END ==
LOC: M LAB REF 13:35
PROVIDERS: ATTEND Internal Medicine Nephrology
DX: Z79.01 Long term (current) use of anticoagulants (principal); I82.501 Chronic embolism and thrombosis of unspecified deep veins of right lower extremity; Z48.22 Encounter for aftercare following kidney transplant; Z94.0 Kidney transplant status

== ENCOUNTER → 2016-10-15 | Outpatient (REF) | payer MEDICARE ==
[2016-10-15 14:30] LABS: INR 1.73
== END ==
LOC: M SMT 13:39
PROVIDERS: ATTEND Internal Medicine Nephrology
DX: I82.501 Chronic embolism and thrombosis of unspecified deep veins of right lower extremity (principal); Z79.01 Long term (current) use of anticoagulants

== ENCOUNTER 2016-10-24 11:40 | Outpatient (RCR) | payer MEDICARE | END 2016-10-25 | LOC: M PT 11:40 | PROVIDERS: ATTEND Internal Medicine Nephrology | DX: Z51.89 Encounter for other specified aftercare (principal); I89.0 Lymphedema, not elsewhere classified | CPT/HCPCS: 97140; 97161; G8978; G8979; G8980 ==

== ENCOUNTER → 2016-11-13 | Outpatient (REF) | payer MEDICARE ==
[2016-11-13 13:48] LABS: INR 1.95
== END ==
LOC: M LAB REF 13:04
PROVIDERS: ATTEND Internal Medicine Nephrology
DX: I82.501 Chronic embolism and thrombosis of unspecified deep veins of right lower extremity (principal); Z79.01 Long term (current) use of anticoagulants; Z94.0 Kidney transplant status

== ENCOUNTER → 2016-12-11 | Outpatient (CLI) | payer MEDICARE ==
[2016-12-11 09:51] LABS: BASO # 0.1 10^3/uL (0.0-0.2); BASO % 0.7 % (0.0-1.0); EOS # 0.4 10^3/uL (0.0-0.50); EOS % 5.4 % (0.0-3.0); IMMATURE GRANULOCYTE % 0.3 % (0-0); LYMPH # 2.3 10^3/uL (1.5-4.5); LYMPH % 33.4 % (24.0-44.0); MEAN CORPUSCULAR HEMOGLOBIN 30.8 pg (27.0-33.0); MEAN CORPUSCULAR HGB CONC 30.9 g/dl (32.0-36.5); MEAN CORPUSCULAR VOLUME 99.7 fl (80.0-96.0); MONO # 0.7 10^3/uL (0.0-0.8); MONO % 10.3 % (0.0-5.0); NEUTROPHILS # 3.4 10^3/uL (1.8-7.7); NEUTROPHILS % 49.9 % (36.0-66.0); PLATELET COUNT, AUTOMATED 232 10^3/uL (150-450); RED CELL DISTRIBUTION WIDTH 14.7 % (11.5-14.5); WHITE BLOOD COUNT 6.8 10^3/uL (4.0-10.0)
[2016-12-11 10:32] LABS: ALBUMIN 3.4 GM/DL (3.2-5.2); CALCIUM LEVEL 8.7 MG/DL (8.8-10.2); CREATININE FOR GFR 1.68 MG/DL (0.55-1.02); MAGNESIUM LEVEL 2.1 MG/DL (1.8-2.4); PHOSPHORUS LEVEL 3.3 MG/DL (2.5-4.9); POTASSIUM SERUM 3.8 MEQ/L (3.5-5.1)
== END ==
LOC: M LAB 08:45
PROVIDERS: ATTEND Pediatrics Pediatric Nephrology
DX: N18.5 Chronic kidney disease, stage 5 (principal); Z94.0 Kidney transplant status; D64.9 Anemia, unspecified; Z79.899 Other long term (current) drug therapy

== ENCOUNTER → 2017-02-05 | Outpatient (REF) | payer MEDICARE ==
[2017-02-05 13:12] LABS: INR 1.72
== END ==
LOC: M LAB REF 12:50
PROVIDERS: ATTEND Internal Medicine Nephrology
DX: Z79.01 Long term (current) use of anticoagulants (principal); Z48.22 Encounter for aftercare following kidney transplant; Z94.0 Kidney transplant status; I82.501 Chronic embolism and thrombosis of unspecified deep veins of right lower extremity

== ENCOUNTER → 2017-02-14 | Outpatient (REF) | payer MEDICARE | LOC: M SMT 12:58 | PROVIDERS: ATTEND Nurse Practitioner Women's Health | DX: N39.41 Urge incontinence (principal); R31.29 Other microscopic hematuria ==

== ENCOUNTER → 2017-02-21 | Outpatient (CLI) | payer MEDICARE | LOC: M LAB 09:58 | DX: R19.7 Diarrhea, unspecified (principal) | CPT/HCPCS: 82784 ==

== ENCOUNTER → 2017-02-22 | Outpatient (REF) | payer MEDICARE ==
[2017-03-01 14:10] LABS: CALPROTECTIN STOOL 29 ug/g (0-120); O+P EXAM Final report (.)
[2017-03-08 14:16] LABS: GIARDIA LAMBLIA IgA ABS 8.1 U/mL (0.0-29.2); GIARDIA LAMBLIA IgM ABS 1.6 U/mL (0.0-24.9)
[2017-03-11 08:24] LABS: CHYMOTRYPSIN, STOOL SEE SEPARATE REPORT
== END ==
LOC: M LAB REF 09:38
DX: R19.7 Diarrhea, unspecified (principal)
CPT/HCPCS: 84311

== ENCOUNTER → 2017-03-08 | Outpatient (REF) | payer MEDICARE ==
[2017-03-08 14:06] LABS: INR 1.36; PROTHROMBIN TIME 17.1 SECONDS (12.4-14.5)
== END ==
LOC: M LAB REF 13:00
DX: Z79.01 Long term (current) use of anticoagulants (principal); I82.501 Chronic embolism and thrombosis of unspecified deep veins of right lower extremity
CPT/HCPCS: 85610

== ENCOUNTER → 2017-03-27 | Outpatient (CLI) | payer MEDICARE | LOC: M WHC 09:49 | DX: Z12.31 Encounter for screening mammogram for malignant neoplasm of breast (principal); Z01.419 Encounter for gynecological examination (general) (routine) without abnormal findings (principal); Z78.0 Asymptomatic menopausal state | CPT/HCPCS: 77067 ==

== ENCOUNTER → 2017-04-02 | Outpatient (CLI) | payer MEDICARE | LOC: M EKG 09:37 | DX: I48.91 Unspecified atrial fibrillation (principal); I10 Essential (primary) hypertension ==

== ENCOUNTER → 2017-04-02 | Outpatient (CLI) | payer MEDICARE ==
[~2017-04-02] MED LIST changes: -/WARF25TA; -8 HO650T2 PO; -ACET50TA PO; -ACET50TAOT PO; -ACET65TA; -ALEN35TA PO; -ALLO10TA PO; -AMIL5TA PO; -AMLO10TA PO; -ASPI325T; -ASPI81TA85 PO; -ASPI81TAEC PO; -BACITAB; -BACITAB PO; -BACT400T OR; -CALC0.5C OR; -CALC12502 OR; -CALC1CAP31 PO; -CALC500C16 PO; -CIPR-249 PO; -COLA100C5 PO; -COUM1TAB17 PO; -COUM6TAB PO; -CYCL10CAP PO; -CYCL1CAP4 PO; -CYCL25CA5 PO; -CYCLO25CA PO; -DARV100T; -DULO20CA; -FERR325T3 PO; -FISH1000 PO; -FISH500C PO; -FLAG500T PO; -FOLI1TAB OR; -FOLI1TAB4 PO; -FOSRENOL; -FURO40TA2 PO; -KEPP1TAB PO; -KEPP250T5 PO; -KPHOS PO; -LASI40TA OR; -LASI40TA PO; -LEVO250T12 PO; +LIQUID POLIBAR PLUS 105% w/v 1900ML BTL As Ordered; -LOPR1TAB6 PO; -LOSA50TA20 PO; -LUTE20CA PO; -MAGN500T2 OR; -MAGO400T PO; -MED REC COMPLETE; -METO1TAB87 PO; -MYFO180T PO; -NEUR100C OR; -NEUR300C PO; -NORV5TAB PO; -OMEP20CA3 PO; -OMEP20TA7 PO; -OXYB10TA PO; -OXYC1TAB23 PO; -PERCOCET PO; -POTA50TAB PO; -PRED10TA2; -PRED5TA PO; -PRED5TAB OR; -PRIL20CA; -PROBCAP13; -RENAL CAPS; -RENVELA; -SPIR25TA2 PO; -TACR0.5C3 PO; -TACR1CAP3 PO; -TACR5CAP OR; -TACROLIMUS PO; -TRAM50TA2 PO; -TUMS500C PO; -TYLE325T5 PO; -TYLE500T78 PO; -ULTR50TA8 PO; -VANC250C2 PO; -VANC50SOL PO; -VITAMIN D50000 UNT OR; -WARF-60 PO; -WARF05TA PO; -WARF4TAB52 PO; -WARF5VL; -ZEMPLAR; -ZYLO300T4 PO; -myfortic OR; -sensipar
== END ==
LOC: M RAD 09:44
DX: K57.30 Diverticulosis of large intestine without perforation or abscess without bleeding (principal); R19.7 Diarrhea, unspecified; I48.91 Unspecified atrial fibrillation; I10 Essential (primary) hypertension
CPT/HCPCS: 74280

== ENCOUNTER → 2017-04-09 | Outpatient (REF) | payer MEDICARE ==
[2017-04-09 13:30] LABS: INR 1.33; PROTHROMBIN TIME 16.8 SECONDS (12.4-14.5)
== END ==
LOC: M LAB REF 13:03
DX: I82.501 Chronic embolism and thrombosis of unspecified deep veins of right lower extremity (principal); Z79.01 Long term (current) use of anticoagulants
CPT/HCPCS: 85610

== ENCOUNTER 2017-04-15 11:02 | Day surgery (SDC) | payer MEDICARE ==
[2017-04-15 11:44] LABS: INR 1.42; PROTHROMBIN TIME 17.6 SECONDS (12.4-14.5)
[2017-04-15] MEDS: NS 1,000 ML IV (12:00)
[2017-04-15] MEDS ORDERED: fentaNYL 100 MCG/2 ML INJECTION (J3010) As Ordered (13:11)
[2017-04-15] MEDS ORDERED: PROPOFOL 200 MG/20 ML VIAL As Ordered (13:11)
[2017-04-15] MEDS ORDERED: MIDAZOLAM INJ 2 MG/2 ML VIAL (J2250) As Ordered (13:12)
[2017-04-15] MEDS ORDERED: LIDOCAINE 2% INJ 100 MG/5 ML SDV (FOR ANES.) As Ordered (13:33)
[2017-04-15] MEDS ORDERED: ONDANSETRON 4MG/2ML VIAL (J2405) As Ordered (13:55)
[2017-04-15] MEDS ORDERED: THROMBIN SOLN 5,000 UNITS VIAL As Ordered (13:59)
[2017-04-15] MEDS: BUPIVACAINE HCL 0.5% 30 ML VIAL As Ordered (14:30)
[2017-04-15] MEDS: HEPARIN SOD (PORCINE) 5000 UNITS/ML VIAL As Ordered (14:30)
[2017-04-15] MEDS: LIDOCAINE 1% SDV INJ 30 ML VIAL As Ordered (14:30)
[2017-04-15] MEDS: THROMBIN SOLN 20,000 UNITS KIT As Ordered (14:31)
== END 2017-04-15 15:31 | disposition home or self-care (01) ==
LOC: M SDC 11:02
DX: T82.848A Pain due to vascular prosthetic devices, implants and grafts, initial encounter (principal); N18.6 End stage renal disease; Z94.0 Kidney transplant status; H40.9 Unspecified glaucoma; E03.9 Hypothyroidism, unspecified; E78.00 Pure hypercholesterolemia, unspecified; M1A.30X0 Chronic gout due to renal impairment, unspecified site, without tophus (tophi); K21.9 Gastro-esophageal reflux disease without esophagitis; I15.0 Renovascular hypertension; N25.81 Secondary hyperparathyroidism of renal origin; D63.1 Anemia in chronic kidney disease; I82.501 Chronic embolism and thrombosis of unspecified deep veins of right lower extremity; Q44.6 Cystic disease of liver; K57.30 Diverticulosis of large intestine without perforation or abscess without bleeding; R29.898 Other symptoms and signs involving the musculoskeletal system; M12.9 Arthropathy, unspecified; Z88.1 Allergy status to other antibiotic agents; Z88.5 Allergy status to narcotic agent; Z79.899 Other long term (current) drug therapy; Z79.01 Long term (current) use of anticoagulants; Z86.79 Personal history of other diseases of the circulatory system; Z86.19 Personal history of other infectious and parasitic diseases; Z78.0 Asymptomatic menopausal state; Z96.1 Presence of intraocular lens; X58.XXXA Exposure to other specified factors, initial encounter; Y93.89 Activity, other specified; Y92.89 Other specified places as the place of occurrence of the external cause; Y99.8 Other external cause status
CPT/HCPCS: 36832

== ENCOUNTER → 2017-05-03 | Outpatient (REF) | payer MEDICARE ==
[2017-05-03 13:43] LABS: INR 1.77; PROTHROMBIN TIME 21.2 SECONDS (12.4-14.5)
[2017-05-03 14:21] LABS: FREE T4 0.99 NG/DL (0.76-1.46)
== END ==
LOC: M LAB REF 13:17
DX: Z79.01 Long term (current) use of anticoagulants (principal); E03.9 Hypothyroidism, unspecified; I82.501 Chronic embolism and thrombosis of unspecified deep veins of right lower extremity
CPT/HCPCS: 84443

== ENCOUNTER → 2017-06-05 | Outpatient (CLI) | payer MEDICARE ==
[2017-06-05 13:55] LABS: FERRITIN 263 NG/ML (8-252); IRON (FE) 30 UG/DL (50-170); TOTAL IRON BINDING CAPACITY 200 UG/DL (250-450)
== END ==
LOC: M SMT 09:34
DX: R05 Cough (principal)
CPT/HCPCS: 83550

== ENCOUNTER → 2017-07-03 | Outpatient (REF) | payer MEDICARE ==
[2017-07-03 14:28] LABS: INR 1.43; PROTHROMBIN TIME 17.8 SECONDS (12.4-14.5)
[2017-07-06 00:06] LABS: CYCLOSPORINE LABCORP 68 ng/mL (100-400)
== END ==
LOC: M LAB REF 13:23
DX: I82.501 Chronic embolism and thrombosis of unspecified deep veins of right lower extremity (principal); Z79.01 Long term (current) use of anticoagulants; Z48.22 Encounter for aftercare following kidney transplant; Z94.0 Kidney transplant status; E03.9 Hypothyroidism, unspecified
CPT/HCPCS: 84443

== ENCOUNTER → 2017-07-03 | Outpatient (REF) | payer MEDICARE ==
[2017-07-03 14:49] LABS: FREE T4 1.14 NG/DL (0.76-1.46)
== END ==
LOC: M LAB REF 13:31
DX: E03.9 Hypothyroidism, unspecified (principal)

== ENCOUNTER 2017-07-18 11:30 | Inpatient (IN) | payer MEDICARE ==
[2017-07-18] MEDS: NS 1,000 ML IV ×2 (12:20→21:56)
[2017-07-18 12:41] LABS: BASO # 0.1 10^3/uL (0.0-0.2); BASO % 0.5 % (0.0-1.0); EOS # 0.2 10^3/uL (0.0-0.50); EOS % 2.6 % (0.0-3.0); HEMATOCRIT 34.1 % (36.0-47.0); HEMOGLOBIN 10.9 g/dl (12.0-15.5); IMMATURE GRANULOCYTE % 0.3 % (0-3.0); LYMPH # 1.8 10^3/uL (1.5-4.5); LYMPH % 19.6 % (24.0-44.0); MEAN CORPUSCULAR HEMOGLOBIN 31.5 pg (27.0-33.0); MEAN CORPUSCULAR VOLUME 98.6 fl (80.0-96.0); MONO # 0.6 10^3/uL (0.0-0.8); MONO % 6.1 % (0.0-5.0); NEUTROPHILS # 6.6 10^3/uL (1.8-7.7); NEUTROPHILS % 70.9 % (36.0-66.0); PLATELET COUNT, AUTOMATED 269 10^3/uL (150-450); RED BLOOD COUNT 3.46 10^6/uL (4.00-5.40); RED CELL DISTRIBUTION WIDTH 14.5 % (11.5-14.5); WHITE BLOOD COUNT 9.3 10^3/uL (4.0-10.0)
[2017-07-18] MEDS: GASTROGRAFIN SOLUTION 30ML PO ×2 (13:00→13:30)
[2017-07-18 13:17] LABS: ALBUMIN 3.7 GM/DL (3.2-5.2); ALBUMIN/GLOBULIN RATIO 1.12 (1.00-1.93); ALKALINE PHOSPHATASE 78 U/L (45-117); ALT/SGPT 29 U/L (12-78); ANION GAP 8 MEQ/L (8-16); AST/SGOT 26 U/L (7-37); BILIRUBIN,DIRECT 0.2 MG/DL (0.0-0.2); BILIRUBIN,TOTAL 0.5 MG/DL (0.2-1.0); BLOOD UREA NITROGEN 63 MG/DL (7-18); CALCIUM LEVEL 8.9 MG/DL (8.8-10.2); CARBON DIOXIDE LEVEL 28 MEQ/L (21-32); CHLORIDE LEVEL 102 MEQ/L (98-107); CREATININE FOR GFR 2.28 MG/DL (0.55-1.30); GLOMERULAR FILTRATION RATE 22.5 (>39); GLUCOSE, FASTING 99 MG/DL (70-100); LIPASE 288 U/L (73-393); POTASSIUM SERUM 4.2 MEQ/L (3.5-5.1); SODIUM LEVEL 138 MEQ/L (136-145)
[2017-07-18] MEDS ORDERED: ACETAMINOPHEN TAB 650MG DOSE (2X325MG) PO (15:30)
[2017-07-18] MEDS ORDERED: ONDANSETRON 4MG/2ML VIAL (J2405) IV (15:30)
[2017-07-18 15:49] LABS: INR 1.34; PROTHROMBIN TIME 16.9 SECONDS (12.4-14.5)
[2017-07-18 15:50] LABS: PARTIAL THROMBOPLASTIN TIME 40.2 SECONDS (26.8-37.9)
[2017-07-18] MEDS: VANCOMYCIN ORAL SOL 250MG/5ML ORAL SYRINGE PO (18:00)
[2017-07-18] MEDS: CALCIUM CARBONATE 500 MG CHEW U/D PO ×2 (21:00→21:54)
[2017-07-18] MEDS ORDERED: HEPARIN SOD (PORCINE) 5000 UNITS/ML VIAL SC (21:00)
[2017-07-18] MEDS: NEORAL 25 MG CAP (J7515) PO (21:54)
[2017-07-18] MEDS: LATANOPROST 0.005% OPHTH SOLN 2.5 ML OU (21:55)
[2017-07-18] MEDS: WARFARIN SOD 5 MG TAB PO (21:55)
[2017-07-18] MEDS: FAMOTIDINE 20 MG TAB PO (21:55)
[2017-07-18] MEDS: DORZOLAMIDE 2% OPHTH SOLN 10 ML BTL OU (21:55)
[2017-07-18] MEDS: METOPROLOL TART 25 MG TABLET PO (21:55)
[2017-07-18] MEDS: MYFORTIC 180 MG PO (22:45)
[2017-07-19] MEDS: VANCOMYCIN ORAL SOL 250MG/5ML ORAL SYRINGE PO ×2 (00:50→05:56)
[2017-07-19] MEDS: NS 1,000 ML IV (05:56)
[2017-07-19] MEDS: LEVOTHYROXINE 25MCG TABLET (0.025MG) PO (05:56)
[2017-07-19 05:57] LABS: HEMATOCRIT 33.9 % (36.0-47.0); HEMOGLOBIN 10.7 g/dl (12.0-15.5); MEAN CORPUSCULAR HEMOGLOBIN 31.5 pg (27.0-33.0); MEAN CORPUSCULAR HGB CONC 31.6 g/dl (32.0-36.5); MEAN CORPUSCULAR VOLUME 99.7 fl (80.0-96.0); PLATELET COUNT, AUTOMATED 237 10^3/uL (150-450); RED CELL DISTRIBUTION WIDTH 14.3 % (11.5-14.5); WHITE BLOOD COUNT 6.1 10^3/uL (4.0-10.0)
[2017-07-19 06:10] LABS: PROTHROMBIN TIME 17.5 SECONDS (12.4-14.5)
[2017-07-19 06:24] LABS: ALBUMIN 3.2 GM/DL (3.2-5.2); ANION GAP 8 MEQ/L (8-16); BLOOD UREA NITROGEN 49 MG/DL (7-18); CALCIUM LEVEL 8.5 MG/DL (8.8-10.2); CARBON DIOXIDE LEVEL 25 MEQ/L (21-32); CHLORIDE LEVEL 109 MEQ/L (98-107); CREATININE FOR GFR 1.76 MG/DL (0.55-1.30); GLOMERULAR FILTRATION RATE 30.3 (>39); GLUCOSE, FASTING 89 MG/DL (70-100); POTASSIUM SERUM 4.2 MEQ/L (3.5-5.1); SODIUM LEVEL 142 MEQ/L (136-145)
[2017-07-19] MEDS: ALLOPURINOL 300 MG TAB PO (08:46)
[2017-07-19] MEDS: DORZOLAMIDE 2% OPHTH SOLN 10 ML BTL OU ×2 (08:46→20:01)
[2017-07-19] MEDS: OMEGA-3 1050MG CAPSULE PO (08:46)
[2017-07-19] MEDS: MYFORTIC 180 MG PO ×2 (08:46→20:01)
[2017-07-19] MEDS: NEORAL 25 MG CAP (J7515) PO ×2 (08:47→20:02)
[2017-07-19] MEDS: CALCITRIOL 0.25 MCG CAP (S0169) PO (08:49)
[2017-07-19] MEDS: predniSONE 5 MG TAB PO (08:53)
[2017-07-19] MEDS: FERROUS GLUCONATE 324 MG TAB PO (08:53)
[2017-07-19] MEDS: METOPROLOL TART 25 MG TABLET PO ×2 (08:53→20:03)
[2017-07-19] MEDS: FAMOTIDINE 20 MG TAB PO ×2 (08:53→20:03)
[2017-07-19] MEDS: CALCIUM CARBONATE 500 MG CHEW U/D PO ×3 (08:53→20:03)
[2017-07-19] MEDS: FOLIC ACID 1 MG TAB PO (08:53)
[2017-07-19] MEDS ORDERED: MYRBETRIQ 50 MG PO (09:00)
[2017-07-19] MEDS: WARFARIN SOD 5 MG TAB PO (17:15)
[2017-07-19] MEDS: FIDAXOMICIN 200 MG TAB (DIFICID) PO ×2 (17:16→20:07)
[2017-07-19] MEDS: LATANOPROST 0.005% OPHTH SOLN 2.5 ML OU (20:01)
[2017-07-20] MEDS: LEVOTHYROXINE 25MCG TABLET (0.025MG) PO (06:03)
[2017-07-20 06:51] LABS: HEMATOCRIT 30.7 % (36.0-47.0); HEMOGLOBIN 9.5 g/dl (12.0-15.5); MEAN CORPUSCULAR HEMOGLOBIN 31.1 pg (27.0-33.0); MEAN CORPUSCULAR HGB CONC 30.9 g/dl (32.0-36.5); MEAN CORPUSCULAR VOLUME 100.7 fl (80.0-96.0); PLATELET COUNT, AUTOMATED 214 10^3/uL (150-450); RED BLOOD COUNT 3.05 10^6/uL (4.00-5.40); RED CELL DISTRIBUTION WIDTH 14.5 % (11.5-14.5); WHITE BLOOD COUNT 6.7 10^3/uL (4.0-10.0)
[2017-07-20 07:01] LABS: INR 1.41; PROTHROMBIN TIME 17.6 SECONDS (12.4-14.5)
[2017-07-20 07:18] LABS: ALBUMIN 2.7 GM/DL (3.2-5.2); ANION GAP 7 MEQ/L (8-16); BLOOD UREA NITROGEN 49 MG/DL (7-18); CALCIUM LEVEL 8.3 MG/DL (8.8-10.2); CARBON DIOXIDE LEVEL 26 MEQ/L (21-32); CHLORIDE LEVEL 112 MEQ/L (98-107); CREATININE FOR GFR 1.59 MG/DL (0.55-1.30); GLOMERULAR FILTRATION RATE 34.1 (>39); GLUCOSE, FASTING 88 MG/DL (70-100); PHOSPHORUS LEVEL 3.3 MG/DL (2.5-4.9); POTASSIUM SERUM 4.2 MEQ/L (3.5-5.1); SODIUM LEVEL 145 MEQ/L (136-145)
[2017-07-20] MEDS: OMEGA-3 1050MG CAPSULE PO (08:44)
[2017-07-20] MEDS: FIDAXOMICIN 200 MG TAB (DIFICID) PO (08:44)
[2017-07-20] MEDS: ALLOPURINOL 300 MG TAB PO (08:45)
[2017-07-20] MEDS: METOPROLOL TART 25 MG TABLET PO (08:45)
[2017-07-20] MEDS: FAMOTIDINE 20 MG TAB PO (08:45)
[2017-07-20] MEDS: predniSONE 5 MG TAB PO (08:45)
[2017-07-20] MEDS: FERROUS GLUCONATE 324 MG TAB PO (08:45)
[2017-07-20] MEDS: FOLIC ACID 1 MG TAB PO (08:45)
[2017-07-20] MEDS: MYFORTIC 180 MG PO (08:46)
[2017-07-20] MEDS: NEORAL 25 MG CAP (J7515) PO (08:46)
[2017-07-20] MEDS: DORZOLAMIDE 2% OPHTH SOLN 10 ML BTL OU (08:46)
[2017-07-20] MEDS: CALCIUM CARBONATE 500 MG CHEW U/D PO (08:46)
[2017-07-20 14:44] LABS: FERRITIN 257 NG/ML (8-252); IRON (FE) 66 UG/DL (50-170); PERCENT SATURATION 30.1 % (13.2-45.0); TOTAL IRON BINDING CAPACITY 219 UG/DL (250-450)
[2017-07-22 11:07] LABS: VITAMIN B12 LEVEL 226 PG/ML (247-911)
[2017-07-22 11:18] LABS: FOLATE > 24.0 NG/ML (>5.4)
== END 2017-07-20 14:40 | disposition home or self-care (01) | DRG 372 ==
LOC: M ED 11:30 → M ED INP 15:27 → M MS5PR 20:14
DX: A04.71 Enterocolitis due to Clostridium difficile, recurrent (principal); N17.9 Acute kidney failure, unspecified; Z94.0 Kidney transplant status; Q61.3 Polycystic kidney, unspecified; D84.9 Immunodeficiency, unspecified; N18.3 Chronic kidney disease, stage 3 (moderate); A04.1 Enterotoxigenic Escherichia coli infection; M10.9 Gout, unspecified; I48.91 Unspecified atrial fibrillation; Z98.49 Cataract extraction status, unspecified eye; Z88.1 Allergy status to other antibiotic agents; Z88.5 Allergy status to narcotic agent; E21.3 Hyperparathyroidism, unspecified; Z79.52 Long term (current) use of systemic steroids; Z79.01 Long term (current) use of anticoagulants; Z79.899 Other long term (current) drug therapy; D63.1 Anemia in chronic kidney disease; Z86.718 Personal history of other venous thrombosis and embolism

== ENCOUNTER → 2017-08-02 | Outpatient (CLI) | payer MEDICARE | LOC: M INFU 08:00 | DX: A04.71 Enterocolitis due to Clostridium difficile, recurrent (principal) ==

== ENCOUNTER 2017-08-09 12:53 | Outpatient (CLI) | payer MEDICARE ==
[2017-08-09] MEDS: FILTER 1.2 MICRON (ADULT TPN/MANNITOL/REMICADE) XX (13:30)
[2017-08-09] MEDS: BEZLOTOXUMAB 850 MG in NS 100 ML IV (13:37)
== END 2017-08-09 15:20 | disposition home or self-care (01) ==
LOC: M INFU 12:53
DX: A04.71 Enterocolitis due to Clostridium difficile, recurrent (principal); Z79.899 Other long term (current) drug therapy; Z88.5 Allergy status to narcotic agent; Z94.0 Kidney transplant status
CPT/HCPCS: J0565

== ENCOUNTER → 2017-08-13 | Outpatient (REF) | payer MEDICARE ==
[2017-08-13 13:26] LABS: INR 1.21; PROTHROMBIN TIME 15.5 SECONDS (12.4-14.5)
[2017-08-13 13:29] LABS: VITAMIN B12 LEVEL 1473 PG/ML (247-911)
[2017-08-16 00:10] LABS: CYCLOSPORINE LABCORP 75 ng/mL (100-400)
== END ==
LOC: M LAB REF 12:51
DX: D51.9 Vitamin B12 deficiency anemia, unspecified (principal); Z79.01 Long term (current) use of anticoagulants; Z48.22 Encounter for aftercare following kidney transplant; I82.501 Chronic embolism and thrombosis of unspecified deep veins of right lower extremity; Z94.0 Kidney transplant status
CPT/HCPCS: 82607

== ENCOUNTER → 2017-08-21 | Outpatient (REF) | payer MEDICARE | LOC: M SFHCPLAZ 09:11 | DX: A04.71 Enterocolitis due to Clostridium difficile, recurrent (principal) ==

== ENCOUNTER → 2017-09-06 | Outpatient (REF) | payer MEDICARE ==
[2017-09-06 14:23] LABS: PROTHROMBIN TIME 20.3 SECONDS (12.1-14.4)
[2017-09-11 12:01] LABS: CYCLOSPORINE LABCORP 57 ng/mL (100-400)
== END ==
LOC: M LAB REF 13:56
DX: Z79.01 Long term (current) use of anticoagulants (principal); Z48.22 Encounter for aftercare following kidney transplant; Z94.0 Kidney transplant status; I82.501 Chronic embolism and thrombosis of unspecified deep veins of right lower extremity
CPT/HCPCS: 80158

== ENCOUNTER → 2017-10-08 | Outpatient (REF) | payer MEDICARE | LOC: M LAB REF 13:11 | DX: N39.0 Urinary tract infection, site not specified (principal) | CPT/HCPCS: 80158; 87186 ==

== ENCOUNTER → 2017-10-08 | Outpatient (REF) | payer MEDICARE ==
[2017-10-08 14:07] LABS: INR 1.69; PROTHROMBIN TIME 20.2 SECONDS (12.1-14.4)
[2017-10-12 00:07] LABS: CYCLOSPORINE LABCORP 70 ng/mL (100-400)
== END ==
LOC: M LAB REF 12:57
DX: Z79.01 Long term (current) use of anticoagulants (principal); Z48.22 Encounter for aftercare following kidney transplant; I82.501 Chronic embolism and thrombosis of unspecified deep veins of right lower extremity; Z94.0 Kidney transplant status
CPT/HCPCS: 80158

== ENCOUNTER 2017-10-14 15:29 | Outpatient (CLI) | payer MEDICARE ==
[2017-10-14] MEDS: GENTAMICIN 160 MG in D5W 50 ML IV (16:48)
== END 2017-10-14 17:42 | disposition home or self-care (01) ==
LOC: M INFU 15:29 → M OPCLI4PV 15:38 → M MSPAV 15:57 → M OPCLI4PV 17:42
DX: N39.0 Urinary tract infection, site not specified (principal); Z94.0 Kidney transplant status; K52.9 Noninfective gastroenteritis and colitis, unspecified; A04.71 Enterocolitis due to Clostridium difficile, recurrent; R82.71 Bacteriuria; N31.8 Other neuromuscular dysfunction of bladder; I10 Essential (primary) hypertension; Z88.5 Allergy status to narcotic agent; Z79.899 Other long term (current) drug therapy; Z79.52 Long term (current) use of systemic steroids; Z79.01 Long term (current) use of anticoagulants
CPT/HCPCS: J1580

== ENCOUNTER 2017-10-15 12:39 | Outpatient (CLI) | payer MEDICARE ==
[2017-10-15] MEDS: GENTAMICIN 160 MG in D5W 50 ML IV (14:44)
== END 2017-10-15 15:40 | disposition home or self-care (01) ==
LOC: M OPCLI4PV 12:39 → M MSPAV 12:47 → M OPCLI4PV 15:40
DX: N39.0 Urinary tract infection, site not specified (principal); Z94.0 Kidney transplant status; A04.71 Enterocolitis due to Clostridium difficile, recurrent; Z88.5 Allergy status to narcotic agent; Z79.899 Other long term (current) drug therapy; Z79.01 Long term (current) use of anticoagulants; Z79.2 Long term (current) use of antibiotics; Z79.52 Long term (current) use of systemic steroids
CPT/HCPCS: J1580

== ENCOUNTER → 2017-10-15 | Outpatient (REF) | payer MEDICARE | LOC: M LAB REF 13:08 | DX: R19.7 Diarrhea, unspecified (principal) ==

== ENCOUNTER 2017-10-16 12:47 | Outpatient (CLI) | payer MEDICARE ==
[2017-10-16] MEDS: GENTAMICIN 160 MG in D5W 50 ML IV (13:39)
== END 2017-10-16 14:42 | disposition home or self-care (01) ==
LOC: M OPCLI4PV 12:47 → M MSPAV 12:58 → M OPCLI4PV 14:42
DX: N39.0 Urinary tract infection, site not specified (principal); Z94.0 Kidney transplant status; A04.71 Enterocolitis due to Clostridium difficile, recurrent; Z88.5 Allergy status to narcotic agent; Z79.899 Other long term (current) drug therapy; Z79.01 Long term (current) use of anticoagulants; Z79.2 Long term (current) use of antibiotics; Z79.52 Long term (current) use of systemic steroids
CPT/HCPCS: J1580

== ENCOUNTER → 2017-11-07 | Outpatient (REF) | payer MEDICARE ==
[2017-11-07 15:17] LABS: INR 1.77; PROTHROMBIN TIME 20.9 SECONDS (12.1-14.4)
[2017-11-12 14:16] LABS: CYCLOSPORINE LABCORP 112 ng/mL (100-400)
== END ==
LOC: M LAB REF 13:03
DX: Z79.01 Long term (current) use of anticoagulants (principal); Z48.22 Encounter for aftercare following kidney transplant; I82.501 Chronic embolism and thrombosis of unspecified deep veins of right lower extremity; Z94.0 Kidney transplant status
CPT/HCPCS: 80158

== ENCOUNTER 2017-11-12 06:26 | Day surgery (SDC) | payer MEDICARE ==
[2017-11-12 07:01] LABS: POTASSIUM SERUM 3.8 MEQ/L (3.5-5.1)
[2017-11-12] MEDS: LIDOCAINE 3.5 % 1ML OPHTH TOPICAL GEL OU (07:20)
[2017-11-12] MEDS ORDERED: MIDAZOLAM INJ 2 MG/2 ML VIAL (J2250) As Ordered (07:52)
[2017-11-12] MEDS ORDERED: fentaNYL 100 MCG/2 ML INJECTION (J3010) As Ordered (07:53)
[2017-11-12] MEDS: POVIDONE-IODINE 5% OPHTH PREP SOL 30ML As Ordered (08:25)
[2017-11-12] MEDS: LIDOCAINE 2% W/EPIN INJ 20ML **PRES FREE As Ordered (08:25)
[2017-11-12] MEDS ORDERED: hydrALAZINE INJ 20 MG/ML VIAL As Ordered (08:35)
[2017-11-12] MEDS: TOBRADEX OPHTH OINT 3.5 GM As Ordered (08:56)
== END 2017-11-12 09:40 | disposition home or self-care (01) ==
LOC: M SDC 06:26
DX: H02.002 Unspecified entropion of right lower eyelid (principal); H02.005 Unspecified entropion of left lower eyelid; I10 Essential (primary) hypertension; N28.9 Disorder of kidney and ureter, unspecified; I48.91 Unspecified atrial fibrillation; E03.9 Hypothyroidism, unspecified; K57.30 Diverticulosis of large intestine without perforation or abscess without bleeding; Q44.6 Cystic disease of liver; K21.9 Gastro-esophageal reflux disease without esophagitis; D64.9 Anemia, unspecified; M12.9 Arthropathy, unspecified; Z88.5 Allergy status to narcotic agent; Z79.899 Other long term (current) drug therapy; Z79.01 Long term (current) use of anticoagulants; Z79.82 Long term (current) use of aspirin; Z86.718 Personal history of other venous thrombosis and embolism; Z86.14 Personal history of Methicillin resistant Staphylococcus aureus infection; Z78.0 Asymptomatic menopausal state; Z94.0 Kidney transplant status; Z96.1 Presence of intraocular lens
CPT/HCPCS: 67917

== ENCOUNTER → 2017-11-22 | Outpatient (REF) | payer MEDICARE ==
[2017-11-22 13:56] LABS: INR 1.43; PROTHROMBIN TIME 17.7 SECONDS (12.1-14.4)
[2017-11-25 14:16] LABS: FK 506 (TACROLIMUS) LABCORP None Detected ng/mL (2.0-20.0)
== END ==
LOC: M LAB REF 13:08
DX: Z79.01 Long term (current) use of anticoagulants (principal); Z48.22 Encounter for aftercare following kidney transplant; N39.0 Urinary tract infection, site not specified; I82.501 Chronic embolism and thrombosis of unspecified deep veins of right lower extremity
CPT/HCPCS: 82570

== ENCOUNTER 2017-11-25 09:21 | Outpatient (RCR) | payer MEDICARE | END 2017-12-25 | LOC: M PT 09:21 | DX: M62.81 Muscle weakness (generalized) (principal) | CPT/HCPCS: 97110 ==

== ENCOUNTER → 2017-12-24 | Outpatient (REF) | payer MEDICARE ==
[2017-12-24 13:56] LABS: INR 1.78
[2017-12-28 14:32] LABS: CYCLOSPORINE LABCORP 72 ng/mL (100-400)
== END ==
LOC: M LAB REF 13:11
DX: Z51.81 Encounter for therapeutic drug level monitoring (principal); Z79.01 Long term (current) use of anticoagulants; Z48.22 Encounter for aftercare following kidney transplant; N39.0 Urinary tract infection, site not specified; Z94.0 Kidney transplant status; I82.501 Chronic embolism and thrombosis of unspecified deep veins of right lower extremity; E03.9 Hypothyroidism, unspecified
CPT/HCPCS: 80158; 84443

== ENCOUNTER → 2017-12-24 | Outpatient (REF) | payer MEDICARE ==
[2017-12-26 18:38] LABS: FREE T4 1.08 NG/DL (0.76-1.46)
== END ==
LOC: M LAB REF 17:07
DX: E03.9 Hypothyroidism, unspecified (principal); I82.501 Chronic embolism and thrombosis of unspecified deep veins of right lower extremity; N39.0 Urinary tract infection, site not specified; Z51.81 Encounter for therapeutic drug level monitoring; Z79.01 Long term (current) use of anticoagulants; Z48.22 Encounter for aftercare following kidney transplant; Z94.0 Kidney transplant status

== ENCOUNTER 2017-12-26 10:16 | Outpatient (RCR) | payer MEDICARE | END 2018-01-24 | LOC: M PT 12-30 08:15 | DX: R53.1 Weakness (principal) | CPT/HCPCS: 97110 ==

== ENCOUNTER 2018-02-06 11:40 | Outpatient (RCR) | payer MEDICARE ==
[~2018-02-06 11:40] MED LIST changes: +/WARF25TA; +8 HO650T2 PO; +ACET500T15 PO; +ACET50TA PO; +ACET65TA; +ALEN35TA PO; +ALLO10TA PO; +AMIL5TAB4 PO; +AMLO10TA PO; +ASPI1TAB PO; +ASPI325T; +ASPI81TA85 PO; +ASPI81TAEC PO; +B-12500T2 PO; +BACITAB; +BACITAB PO; +BACT400T OR; +CALC0.5C OR; +CALC12502 OR; +CALC1CAP31 PO; +CALC500C16 PO; +CIPR-249 PO; +COLA100C5 PO; +COUM1TAB17 PO; +COUM2.5T17 PO; +COUM6TAB PO; +CYCL10CAP PO; +CYCL1CAP4 PO; +CYCL25CA5 PO; +CYCLO25CA PO; +D 50CAP PO; +DARV100T; +DIFI200T PO; +DORZ2OPD OU; +DULO20CA; +FERR325T3 PO; +FERR32TA PO; +FISH1000 PO; +FISH500C PO; +FLAG500T PO; +FOLI1TAB OR; +FOLI1TAB5 PO; +FOSRENOL; +FURO40TA2 PO; +HYDR-3910 PO; +KEPP1TAB PO; +KEPP250T5 PO; +KPHOS PO; +LASI40TA OR; +LASI40TA PO; +LATA5OPD OU; +LEVO250T12 PO; +LEVO25TA5 PO; -LIQUID POLIBAR PLUS 105% w/v 1900ML BTL As Ordered; +LOPR1TAB6 PO; +LOSA50TA73 PO; +LUTE20CA PO; +MAGN500T2 OR; +MAGO400T PO; +MED REC COMPLETE; +METO1TAB87 PO; +MUPI2OI EXT; +MYFO180T PO; +MYRB50TA PO; +NEUR100C OR; +NEUR300C PO; +NORV5TAB PO; +OMEP20CA3 PO; +OMEP20TA7 PO; +OXYB10TA PO; +OXYC1TAB23 PO; +PERCOCET PO; +POTA50TAB PO; +PRED10TA2; +PRED5TA PO; +PRED5TAB OR; +PRIL20CA; +PROBCAP13; +PROBCAP14 PO; +RANI150T PO; +RENAL CAPS; +RENVELA; +SENN1TAB10 PO; +SPIR-10 PO; +STOO100C PO; +TACR0.5C3 PO; +TACR1CAP3 PO; +TACR5CAP OR; +TACROLIMUS PO; +TRAM50TA2 PO; +TUMS500C PO; +TYLE325T5 PO; +TYLE500T78 PO; +ULTR50TA8 PO; +VANC125C2 PO; +VANC250C2 PO; +VANC50SOL PO; +VITA50005 PO; +VITA500T53 PO; +VITAMIN D50000 UNT OR; +WARF-60 PO; +WARF05TA PO; +WARF4TAB52 PO; +WARF5VL; +ZEMPLAR; +ZYLO300T6 PO; +myfortic OR; +sensipar
== END 2018-02-24 ==
LOC: M PT 11:40
PROVIDERS: ATTEND Internal Medicine Nephrology
DX: R53.1 Weakness (principal)
CPT/HCPCS: 97110; 97112; 97116; G8979; G8980

== ENCOUNTER → 2018-02-21 | Outpatient (REF) | payer MEDICARE ==
[~2018-02-21] MED LIST changes: +FOLI1TAB11 PO; -FOLI1TAB5 PO; -LASI40TA PO; +LASI40TA9 PO; -LOSA50TA73 PO; +LOSA50TA88 PO
[2018-02-21 13:31] LABS: INR 1.18; PROTHROMBIN TIME 15.2 SECONDS (12.1-14.4)
== END ==
LOC: M LAB REF 12:49
PROVIDERS: ATTEND Internal Medicine Nephrology
DX: Z79.01 Long term (current) use of anticoagulants (principal); Z48.22 Encounter for aftercare following kidney transplant; I82.501 Chronic embolism and thrombosis of unspecified deep veins of right lower extremity; Z94.0 Kidney transplant status

== ENCOUNTER → 2018-03-11 | Outpatient (CLI) | payer MEDICARE ==
--- NOTE | 2018-03-11 16:59 | REPMRS ---
Patient History The patient states she had a clinical breast exam in 02/2018. Patient is postmenopausal. Family history of breast cancer under age 50 in maternal aunt, colorectal cancer under age 50 in maternal uncle, breast cancer in maternal cousin. No Hormone Replacement Therapy Digital Woman Screen Mammo: March 11, 2018 - Exam #: [id number] Bilateral CC and MLO view(s) were taken. Technologist: Nicole Nielsen, Technologist Prior study comparison: March 27, 2017, digital woman screen mammo performed at [facility]. February 24, 2016, digital woman screen mammo performed at [facility]. January 31, 2015, digital woman screen mammo performed at [facility]. FINDINGS: There are scattered fibroglandular densities. There has been no change in the appearance of the mammogram from the prior studies. There is a mild amount of scattered fibroglandular density which is fairly symmetric. There is no interval development of dominant mass, architectural distortion, or clustered microcalcification suggestive of malignancy. 3-D tomosynthesis shows no additional findings. Assessment: BI-RADS/ACR category 1 mammogram. Negative. Recommendation Routine screening mammogram of both breasts in 1 year (for women over age 40). This patient's Lifetime Breast Cancer RIsk is estimated at 5.5 %. This mammogram was interpreted with the aid of an FDA-approved computer-aided dectection system. Electronically Signed By: Bjorn Ellsworth MD 03/11/18 [id number]
== END ==
LOC: M WHC 14:53
PROVIDERS: ATTEND Nurse Practitioner Women's Health
DX: Z12.31 Encounter for screening mammogram for malignant neoplasm of breast (principal); Z78.0 Asymptomatic menopausal state
CPT/HCPCS: 77063; 77067; G0463

== ENCOUNTER → 2018-04-24 | Outpatient (REF) | payer MEDICARE ==
[2018-04-24 13:44] LABS: INR 1.13; PROTHROMBIN TIME 14.7 SECONDS (12.1-14.4)
== END ==
LOC: M LAB REF 12:48
PROVIDERS: ATTEND Internal Medicine Nephrology
DX: I82.501 Chronic embolism and thrombosis of unspecified deep veins of right lower extremity (principal); N39.0 Urinary tract infection, site not specified; Z79.01 Long term (current) use of anticoagulants; Z48.22 Encounter for aftercare following kidney transplant; Z94.0 Kidney transplant status

== ENCOUNTER → 2018-09-03 | Outpatient (REF) | payer MEDICARE ==
[~2018-09-03] MED LIST changes: -/WARF25TA; +ACET-683 PO; -ACET50TA PO; -ASPI1TAB PO; +ASPI81TA26 PO; -CALC0.5C OR; +CALC0.5C14 OR; +COUM1TAB18; +CYMB1CAP4; +DORZ2SOL5 OU; -DULO20CA; +HYDR50TA PO; +LATA0.0013 OU; -LATA5OPD OU; +MAPA500T17 PO; +MM S100C PO; +OMEGCAP4 PO; -OMEP20CA3 PO; +OMEP20CA4 PO; -STOO100C PO; -VANC125C2 PO; +VANC125C3 PO; -VANC250C2 PO; +VANC250C3 PO; +VITA200012 PO; +VITA250T50 PO; +VITA500T17 PO; -VITA500T53 PO; +XALA0.007 OU
[2018-09-03 15:21] LABS: INR 1.58; PROTHROMBIN TIME 18.6 SECONDS (11.8-14.0)
== END ==
LOC: M LAB REF 13:03
PROVIDERS: ATTEND Internal Medicine Nephrology
DX: Z79.01 Long term (current) use of anticoagulants (principal); I82.501 Chronic embolism and thrombosis of unspecified deep veins of right lower extremity; Z48.22 Encounter for aftercare following kidney transplant; Z94.0 Kidney transplant status

== ENCOUNTER 2018-09-07 17:09 | Emergency (ER) | payer MEDICARE ==
[~2018-09-07] VITALS: Ht 167.6 cm; Wt 83.6 kg
[~2018-09-07 17:09] MED LIST changes: -ACET-683 PO; -DORZ2SOL5 OU; -HYDR50TA PO; -OMEGCAP4 PO; -VITA200012 PO; -VITA250T50 PO; -XALA0.007 OU
[2018-09-07 17:10] VITALS: BP 142/77
[2018-09-07] MEDS: MORPHINE 2 MG/ML 1ML SYRINGE (J2270) IV PRN (18:00)
[2018-09-07 18:03] LABS: BASO # 0.1 10^3/uL (0.0-0.2); BASO % 0.5 % (0.0-1.0); EOS # 0.2 10^3/uL (0.0-0.50); EOS % 1.8 % (0.0-3.0); HEMATOCRIT 34.7 % (36.0-47.0); HEMOGLOBIN 10.9 g/dl (12.0-15.5); LYMPH % 18.7 % (24.0-44.0); MEAN CORPUSCULAR HEMOGLOBIN 32.3 pg (27.0-33.0); MEAN CORPUSCULAR HGB CONC 31.4 g/dl (32.0-36.5); MONO # 0.8 10^3/uL (0.0-0.8); MONO % 7.9 % (0.0-5.0); NEUTROPHILS # 7.4 10^3/uL (1.8-7.7); NEUTROPHILS % 70.7 % (36.0-66.0); PLATELET COUNT, AUTOMATED 245 10^3/uL (150-450); RED BLOOD COUNT 3.37 10^6/uL (4.00-5.40); WHITE BLOOD COUNT 10.5 10^3/uL (4.0-10.0)
[2018-09-07 18:14] LABS: INR 1.9; PROTHROMBIN TIME 21.6 SECONDS (11.8-14.0)
[2018-09-07 18:15] LABS: PARTIAL THROMBOPLASTIN TIME 38.1 SECONDS (25.0-38.4)
[2018-09-07 18:46] LABS: ALBUMIN 3.4 GM/DL (3.2-5.2); BILIRUBIN,DIRECT 0.2 MG/DL (0.0-0.2); BILIRUBIN,TOTAL 0.5 MG/DL (0.2-1.0); CALCIUM LEVEL 8.5 MG/DL (8.8-10.2); CREATININE FOR GFR 2.49 MG/DL (0.55-1.30); GLOMERULAR FILTRATION RATE 20.2 (>39); POTASSIUM SERUM 3.9 MEQ/L (3.5-5.1); THYROID STIMULATING HORMONE 1.06 uIU/ML (0.358-3.740); TOTAL PROTEIN 6.5 GM/DL (6.4-8.2)
--- NOTE | 2018-09-07 19:59 | REPVR ---
EXAM: US Left Non-Vascular Joint or Other Extremity Structure, Limited Upper Extremity EXAM DATE/TIME: 09/07/2018 6:55 PM CLINICAL HISTORY: 72 years old, female; Mass or lump; Arm, lower; Left; Prior surgery; Surgery date: 6+ months; Surgery type: Fistula; Additional info: Pain, swelling TECHNIQUE: Imaging protocol: Left US Non-Vascular Joint or Other Extremity Structure. Limited exam of the upper extremity. COMPARISON: No relevant prior studies available. FINDINGS: Soft tissues: Examination of the posterior forearm on the left in the area of clinically observed mass and swelling with cutaneous discoloration demonstrates a complex lobular fluid collection measuring 5.3 x 5.9 x 2.5 cm. Anteriorly the lesion is predominantly cystic and posteriorly there is a ovoid echogenic soft tissue mass measuring 1.9 x 4.8 x 3.2 cm. Finding is consistent with a large complex hematoma. No significant vascularity demonstrated on Doppler. IMPRESSION: Findings consistent with a large layering hematoma in the posterior forearm. Electronically signed by: José Miguel Adorno On 09/07/2018 19:59:23 PM
== END 2018-09-07 21:29 | disposition left against medical advice (07) ==
LOC: M ED 17:09
DX: N17.9 Acute kidney failure, unspecified (principal); S50.12XA Contusion of left forearm, initial encounter; X58.XXXA Exposure to other specified factors, initial encounter; Y92.89 Other specified places as the place of occurrence of the external cause; Q61.3 Polycystic kidney, unspecified; Z94.0 Kidney transplant status; Z86.718 Personal history of other venous thrombosis and embolism; Z90.5 Acquired absence of kidney; Z79.899 Other long term (current) drug therapy; Z79.01 Long term (current) use of anticoagulants; Z79.82 Long term (current) use of aspirin; Z88.5 Allergy status to narcotic agent

== ENCOUNTER 2018-09-09 10:19 | Inpatient (IN) | payer MEDICARE ==
[2018-09-09] VITALS (7 sets, daily range): BP systolic 132–146; BP diastolic 62–89
[~2018-09-09] VITALS: Ht 170.2 cm; Wt 180.8 kg
[~2018-09-09 10:19] MED LIST changes: +OMEP1CAP73 PO; -OMEP20CA4 PO; -OXYB10TA PO; +OXYB10TA23 PO
[2018-09-09 11:52] LABS: VENOUS BASE EXCESS 1.5 (-2.0-2.0); VENOUS O2 SATURATION 68.3 % (60.0-80.0); VENOUS PARTIAL PRESSURE CO2 46.5 mmHg (38.0-50.0); VENOUS PARTIAL PRESSURE O2 37.1 mmHg (30.0-50.0); VENOUS PH 7.381 UNITS (7.330-7.430); VENOUS STANDARD HCO3 25.3 MEQ/L; VENOUS TOTAL CO2 28.4 MEQ/L (24.0-28.0)
[2018-09-09 11:58] LABS: BASO # 0.1 10^3/uL (0.0-0.2); BASO % 0.4 % (0.0-1.0); EOS # 0.1 10^3/uL (0.0-0.50); EOS % 0.5 % (0.0-3.0); HEMATOCRIT 28.3 % (36.0-47.0); LYMPH # 0.9 10^3/uL (1.5-4.5); LYMPH % 6.6 % (24.0-44.0); MEAN CORPUSCULAR HEMOGLOBIN 32.7 pg (27.0-33.0); MEAN CORPUSCULAR HGB CONC 31.8 g/dl (32.0-36.5); MEAN CORPUSCULAR VOLUME 102.9 fl (80.0-96.0); MONO % 7.1 % (0.0-5.0); NEUTROPHILS % 84.8 % (36.0-66.0); PLATELET COUNT, AUTOMATED 194 10^3/uL (150-450); RED BLOOD COUNT 2.75 10^6/uL (4.00-5.40); WHITE BLOOD COUNT 14.2 10^3/uL (4.0-10.0)
[2018-09-09 12:09] LABS: INR 2.4
[2018-09-09 13:01] LABS: ALBUMIN 3.2 GM/DL (3.2-5.2); ALT/SGPT 30 U/L (12-78); BILIRUBIN,DIRECT 0.5 MG/DL (0.0-0.2); BILIRUBIN,TOTAL 1.2 MG/DL (0.2-1.0); BLOOD UREA NITROGEN 71 MG/DL (7-18); CALCIUM LEVEL 8.9 MG/DL (8.8-10.2); CARBON DIOXIDE LEVEL 29 MEQ/L (21-32); CHLORIDE LEVEL 99 MEQ/L (98-107); CK-MB VALUE MASS < 1.0 NG/ML (<3.6); CPK CREATINE PHOSPHOKINASE 97 U/L (26-192); CREATININE FOR GFR 2.58 MG/DL (0.55-1.30); GLOMERULAR FILTRATION RATE 19.4 (>39); GLUCOSE, FASTING 115 MG/DL (70-100); MB/CK RELATIVE INDEX 1.03 (< OR =4); POTASSIUM SERUM 3.7 MEQ/L (3.5-5.1); SODIUM LEVEL 136 MEQ/L (136-145); TOTAL PROTEIN 6.8 GM/DL (6.4-8.2); TROPONIN I < 0.02 NG/ML (< 0.10)
[2018-09-09] MEDS ORDERED: NS 500 ML IV ONE (13:15)
[2018-09-09] MEDS ORDERED: HYDR50TA PO (13:38)
[2018-09-09] MEDS ORDERED: OMEGCAP4 PO (13:38)
[2018-09-09] MEDS ORDERED: DORZ2SOL5 OU (13:38)
[2018-09-09] MEDS ORDERED: XALA0.007 OU (13:38)
[2018-09-09] MEDS ORDERED: VITA200012 PO (13:38)
[2018-09-09] MEDS ORDERED: VITA250T50 PO (13:38)
[2018-09-09] MEDS ORDERED: ACET-683 PO (13:38)
--- NOTE | 2018-09-09 13:55 | REP ---
CHEST, SINGLE VIEW: COMPARISON: 06/05/2017 Linear fibroatelectatic change is seen in each lung base without evidence of acute infiltrate or pulmonary edema. The heart is not significantly enlarged. There is mild calcification of the thoracic aorta. The mediastinal silhouette is unchanged. IMPRESSION: No acute infiltrate. Electronically Signed by Narinder Garcia MD 09/09/2018 06:43 P
[2018-09-09] MEDS ORDERED: ACETAMINOPHEN 500 MG TAB PO PRN (14:00)
--- NOTE | 2018-09-09 14:21 | HPEPDOC ---
General Date of Admission Sep 09, 2018 at 13:43 Date of Service: Sep 09, 2018 Chief Complaint The patient is a 72-year-old female who presented to the emergency room with complaints of left arm swelling and redness History of Present Illness Patient is a 72-year-old female with a past medical history of Polycystic kidney disease s/p bilateral nephrectomy, and bilateral renal transplants, s/p HD, HTN, Gout, Paroxysmal A. fib (on Coumadin), Barretts esophagus, Vertigo, Glaucoma / Macular degeneration who presented to the emergency room with complaints of left arm swelling and redness. Patient had initially presented to the emergency room 2 days ago for evaluation after she noted to experience left arm swelling and redness that occurred spontaneously while at [employer]. Patient noted that it began as a small bump that became discolored and slowly began to grow as the day went on. Patient denies any trauma to the arm. She denies any insect bites. Denies any fevers or chills. Denies any drainage. Patient denies chest pain, shortness of breath, palpitations, cough, nausea, vo miting, abdominal pain, constipation, diarrhea or discomfort with urination. Patient does report a weight loss of about 7-8 pounds over the last few weeks and does report a poor appetite. Home Medications Scheduled Allopurinol (Zyloprim) 300 Mg Tab, 300 MG PO DAILY, (Reported) Aspirin (Aspirin EC) 81 Mg Tab, 81 MG PO DAILY, (Reported) Calcitriol (Calcitriol) 0.25 Mcg Cap, 0.25 MCG PO Q2D, (Reported) Calcium Carbonate (Tums) 500 Mg Chw, 500 MG PO TID, (Reported) 0800/1200/1999 Cholecalciferol (Vitamin D3) (D3-2000) 2,000 Unit Capsule, 2,000 UNIT PO DAILY, (Reported) Cyanocobalamin (Vitamin B-12) (Vitamin B-12) 250 Mcg Tablet, 250 MCG PO DAILY, (Reported) Cyclosporine (Modified) (Neoral) 25 Mg Cap, 75 MG PO BID, (Reported) Dorzolamide HCl/Timolol Maleat (Dorzolamide-Timolol Eye Drops) 10 Ml Drops, 1 DROP OU BID, (Reported) Ferrous Gluconate (Ferrous Gluconate) 324 Mg Tab, 324 MG PO DAILY, (Reported) Folic Acid (Folic Acid) 1 Mg Tab, 1 MG PO DAILY, (Reported) Furosemide (Furosemide) 40 Mg Tab, 40 MG PO BID, (Reported) Hydralazine HCl (Hydralazine HCl) 50 Mg Tablet, 50 MG PO BID, (Reported) Latanoprost (Xalatan) 0.005% 2.5ML Drops, 1 DROP OU QHS, (Reported) Levothyroxine Sodium (Levothyroxine Sodium) 25 Mcg Tab, 25 MCG PO DAILY, (Reported) Lutein (Lutein) 20 Mg Cap, 20 MG PO DAILY, (Reported) Metoprolol Tartrate (Metoprolol Tartrate) 25 Mg Tab, 25 MG PO BID, (Reported) Mycophenolate Sodium (Myfortic) 180 Mg Tab, 180 MG PO BID, (Reported) [place]-3/Dha/Epa/Fish Oil ([place]-3 Fish Oil 1,000 mg Sfgl) 1,000 Mg Capsule, 1 CAP PO DAILY, (Reported) Prednisone (Prednisone) 5 Mg Tab, 5 MG PO DAILY, (Reported) Ranitidine HCl (Ranitidine HCl) 150 Mg Tab, 1 TAB PO BID, (Reported) Warfarin Sodium (Coumadin) 5 Mg Tab, 5 MG PO Q2D, (Reported) ALTERNATES WITH 2.5MG Warfarin Sodium (Coumadin) 2.5 Mg Tab, 2.5 MG PO Q2D, (Reported) ALTERNATES WITH 5MG Scheduled PRN Acetaminophen (Acetaminophen) 500 Mg Tablet, 1,000 MG PO Q6H PRN for PAIN, (Reported) Lactobacillus Acidophilus (Probiotic) 1 Cap Cap, 1 CAP PO DAILY PRN for BOWEL CARE, (Reported) Allergies Coded Allergies: codeine (Verified Allergy, Unknown, 09/07/18) lethargic Past Medical History Medical History Polycystic kidney disease s/p bilateral nephrectomy, and bilateral renal transplants, s/p HD, HTN, Gout, Paroxysmal A. fib (on Coumadin), Barretts esophagus, Vertigo, Glaucoma / Macular degeneration Surgical History EGD and colonoscopy Removal of seroma Aspiration. A perirectal abscess Ventral hernia repair Bilateral renal transplants Laparoscopic bilateral nephrectomy Cataract removal with implants Parathyroid surgery Temporal artery biopsy Laparoscopic cholecystectomy Perforated bowel 2/2 insertion of PD catheter Left ear duct surgery Removal of intestinal bezoar Dilation and curettage Appendectomy Family History - Mother with a history of polycystic kidney disease, at age 65 - Father with a history of esophageal and stomach cancer, at age 67 Social History - Denies the use of alcohol, tobacco or illicit drugs - Denies recent travel or sick contacts - Lives with with dementia who she cares for - 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; 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 Review of Systems Other systems 10 point review of systems complete, all negative otherwise stated in HPI Vital Signs - Vitals: BP 140/65, HR 64, RR 18, Sat 98%RA, Temp 98.5F - General: Lying in bed, No acute distress, Speaking in full sentences, AAOx3 - HEENT: NC, AT, PERRLA - CVS: RRR, +S1S2 - Lungs: Fair air entry bilaterally, No appreciable wheezing / rales / rhonchi - Abdomen: Soft, Non-distended, Non-tender - Extremities: 1+ pitting edema bilaterally, No calf tenderness - Neuro: No focal motor or sensory deficit - Skin: Left arm firm with tenderness, redness/bruising, no drainage, extending from wrist to elbow Laboratory Data Labs 24H Laboratory Tests 2 09/09/18 11:40: Immature Granulocyte % (Auto) 0.6, White Blood Count 14.2H, Red Blood Count 2.75 L, Hemoglobin 9.0L, Hematocrit 28.3L, Mean Corpuscular Volume 102.9H, Mean Corpuscular Hemoglobin 32.7, Mean Corpuscular Hemoglobin Concent 31.8L, Red Cell Distribution Width 14.9H, Platelet Count 194, Neutrophils (%) (Auto) 84.8H, Lymphocytes (%) (Auto) 6.6L, Monocytes (%) (Auto) 7.1H, Eosinophils (%) (Auto) 0.5, Basophils (%) (Auto) 0.4, Neutrophils # (Auto) 12.0H, Lymphocytes # (Auto) 0.9L, Monocytes # (Auto) 1.0H, Eosinophils # (Auto) 0.1, Basophils # (Auto) 0.1, Nucleated Red Blood Cells % (auto) 0.0, Prothrombin Time 26.0H, Prothromb Time International Ratio 2.40, Blood Gas Bicarbonate Standard 25.3, Venous Blood pH 7.381, Venous Blood Partial Pressure CO2 46.5, Venous Blood Partial Pressure O2 37.1, Venous Blood Total Carbon Dioxide 28.4H, Venous Blood HCO3 27.0, Venous Blood Oxygen Saturation 68.3, Venous Blood Base Excess 1.5, Anion Gap 8, Glomerular Filtration Rate 19.4L, Calcium Level 8.9, Aspartate Amino Transf (AST/SGOT) 34, Alanine Aminotransferase (ALT/SGPT) 30, Alkaline Phosphatase 75, Total Bilirubin 1.2#H, Direct Bilirubin 0.5H, Total Creatine Kinase 97, Creatine Kinase MB < 1.0, Creatine Kinase MB Relative Index 1.03, Troponin I < 0.02, Total Protein 6.8, Albumin 3.2, Albumin/Globulin Ratio 0.89L, Thyroid Stimulating Hormone (TSH) 1.070 CBC/BMP Laboratory Tests 09/09/18 11:40 Red Blood Count 2.75 L, Mean Corpuscular Volume 102.9 H, Mean Corpuscular Hemoglobin 32.7, Mean Corpuscular Hemoglobin Concent 31.8 L, Red Cell Distribution Width 14.9 H, Neutrophils (%) (Auto) 84.8 H, Lymphocytes (%) (Auto) 6.6 L, Monocytes (%) (Auto) 7.1 H, Eosinophils (%) (Auto) 0.5, Basophils (%) (Auto) 0.4, Neutrophils # (Auto) 12.0 H, Lymphocytes # (Auto) 0.9 L, Monocytes # (Auto) 1.0 H, Eosinophils # (Auto) 0.1, Basophils # (Auto) 0.1 RAD Interpretation RAD Interpretation: Other Result Comments: (- US of PUJAE 09/07: Findings consistent with a large layering hematoma in the posterior forearm.) Plan / VTE VTE Prophylaxis Ordered?: Yes Plan Plan Left arm tenderness/firm/redness/bruising - likely 2/2 hematoma - Had initially presented to the emergency room on 09/07 for evaluation, but had to return home to care for her - Currently patients arm has not changed significantly from 2 days ago - Has return for further follow-up and evaluation - Imaging at that time was consistent with a hematoma - Vascular surgery has evaluated patient emergency room and had will be taking the patient to OR today for drainage - Will keep patient NPO WAYNE on CKD3 - Cr baseline of 1.5-17; Cr on admission o 2.58 - Avoid nephrotoxic medications - Will c/w gentle IV fluid hydration - Will consult Nephrology Polycystic kidney disease s/p bilateral nephrectomy and bilateral renal transplants - s/p HD in HTN - BP well controlled - c/w Metoprolol and Hydralazine with holding parameters Gout - c/w Allpurinol Paroxysmal A. fib - On evaluation, patient had a regular rhythm / rate - c/w rate control with metoprolol - c/w full anticoagulation with Coumadin Barretts esophagus - c/w Famotidine Vertigo - Currently does not experience any symptoms Glaucoma / Macular degeneration - continue with outpatient regimen GERD - c/w Famotidine DVT prophylaxis - on full anticoagulation with Coumadin AMIE CARPENTER MD Sep 09, 2018 14:21
--- NOTE | 2018-09-09 14:46 | REP ---
CT of the left upper extremity without IV contrast: Axial images are acquired helical scanning from the shoulder to the metacarpals. Sagittal and coronal reformats are performed. There is a soft tissue mass in the the subcutaneous dorsal soft tissues of the forearm extending from the elbow to the junction and of the middle and distal thirds of the forearm measuring 15 cm craniocaudad by 5 cm transversely. The mass is compatible with hematoma, abscess or neoplasm. There is subcutaneous soft tissue edema proximal and distal to this mass. Impression: Large subcutaneous soft tissue mass in the left forearm as described. Electronically Signed by Narinder Lyon MD 09/09/2018 02:37 P
[2018-09-09] MEDS ORDERED: PILL CUTTER 1 EACH XX PRN (15:00)
[2018-09-09] MEDS ORDERED: LIDOCAINE 1% SDV INJ 30 ML VIAL As Ordered ONE (15:05)
[2018-09-09] MEDS ORDERED: BUPIVACAINE HCL 0.5% 30 ML VIAL As Ordered ONE (15:05)
[2018-09-09] MEDS ORDERED: HEPARIN SOD (PORCINE) 5000 UNITS/ML VIAL As Ordered ONE (15:05)
--- NOTE | 2018-09-09 15:13 | CR.PDOC ---
General Date of Consultation: Sep 09, [address] Vivas. HPI: Patient is a 72-year-old female who presented to the emergency room with complaints of left arm swelling and redness. Patient had initially presented to the emergency room 2 days ago for evaluation after she noted to experience left arm swelling and redness that occurred spontaneously while at [employer]. Patient noted that it began as a small bump that became discolored and slowly began to grow as the day went on. The pt states she left AMA related to issues with her who is also currently admitted to [facility]. Vascular Surgery consulted re SUSAN mares. Patient denies any trauma to the arm. She denies any insect bites. Denies any fevers or chills. Denies any drainage. Denies any weakness, fatigue, Headache, Chest Pain, Shortness of breath, cough, palpitations, abdominal pain, N/V/D or changes in bowel or bladder habits. PMHx: Polycystic kidney disease s/p bilateral nephrectomy, and bilateral renal transplants, s/p HD, HTN, Gout, Paroxysmal A. fib (on Coumadin), Barretts esophagus, Vertigo, Glaucoma / Macular degeneration PSHx EGD and colonoscopy Removal of seroma Aspiration. 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 PE: GEN: 72yoF, appears stated age. No acute distress. Alert and oriented x 3. HEENT: Normocephalic, atraumatic. Pupils are equal, round, and reactive to light. Nose midline. No facial asymmetry. Moist mucous membranes. Dentition fair. CHEST: Regular rate and rhythm, +S1, +S2 LUNGS: Clear to auscultation bilaterally. No wheezes, rales, or rhonchi. Breathing appears symmetric and easy. Patient is speaking in full sentences. ABD: Round, soft, non-tender, non-distended. +Bowel sounds throughout. No rebound or guarding. EXT: Pulses 2+ bilaterally dorsalis pedis and radial. SKIN: [place], dry, warm. Capillary refill <2sec. Multiple healed scars noted LUE related to previous AVF sites. The LUE has swelling extending from the wrist to elbow area with large hematoma and diffuse ecchymosis. NEURO: Alert and oriented x 3. Cranial nerves III-XII are intact. No focal deficits appreciated. US LUE 09/07/18 FINDINGS: Soft tissues: Examination of the posterior forearm on the left in the area of clinically observed mass and swelling with cutaneous discoloration demonstrates a complex lobular fluid collection measuring 5.3 x 5.9 x 2.5 cm. Anteriorly the lesion is predominantly cystic and posteriorly there is a ovoid echogenic soft tissue mass measuring 1.9 x 4.8 x 3.2 cm. Finding is consistent with a large complex hematoma. No significant vascularity demonstrated on Doppler. IMPRESSION: Findings consistent with a large layering hematoma in the posterior forearm. Electronically signed by: José Miguel Adorno On 09/07/2018 19:59:[address] Lt UE 09/09/18 pending. CXR 09/09/18 IMPRESSION: No acute infiltrate. Unreviewed DD: Narinder Garcia MD, MD 09/09/18 1313 A&P: 1. LUE hematoma. US 09/07/[address] LUE pending. Hgb 9.0. Pt is noted to be on Coumadin for h/o Afib, INR 2.40. Pt states she last ate at dinner 09/08/18, states she took meds with water this AM. The pt is reviewed and examined as per Dr Vivas, plan as per Dr Vivas is for OR 09/09/18 for hematoma evacuation. 2. Afib. Coumadin as above. Thank you for your consultation. We will continue to follow along with you. Vital Signs/I&O Vital Signs Date Time Temp Pulse Resp B/P (MAP) Pulse Ox O2 Delivery O2 Flow Rate FiO2 09/09/18 13:55 61 99 Room Air 09/09/18 13:45 132/63 (86) 09/09/18 10:19 98.5 20 Laboratory Data Labs 24H Laboratory Tests 2 09/09/18 11:40: Immature Granulocyte % (Auto) 0.6, White Blood Count 14.2H, Red Blood Count 2.75L, Hemoglobin 9.0L, Hematocrit 28.3L, Mean Corpuscular Volume 102.9H, Mean Corpuscular Hemoglobin 32.7, Mean Corpuscular Hemoglobin Concent 31.8L, Red Cell Distribution Width 14.9H, Platelet Count 194, Neutrophils (%) (Auto) 84.8H, Lymphocytes (%) (Auto) 6.6L, Monocytes (%) (Auto) 7.1H, Eosinophils (%) (Auto) 0.5, Basophils (%) (Auto) 0.4, Neutrophils # (Auto) 12.0H, Lymphocytes # (Auto) 0.9L, Monocytes # (Auto) 1.0H, Eosinophils # (Auto) 0.1, Basophils # (Auto) 0.1, Nucleated Red Blood Cells % (auto) 0.0, Prothrombin Time 26.0H, Prothromb Time International Ratio 2.40, Blood Gas Bicarbonate Standard 25.3, Venous Blood pH 7.381, Venous Blood Partial Pressure CO2 46.5, Venous Blood Partial Pressure O2 37.1, Venous Blood Total Carbon Dioxide 28.4H, Venous Blood HCO3 27.0, Venous Blood Oxygen Saturation 68.3, Venous Blood Base Excess 1.5, Anion Gap 8, Glomerular Filtration Rate 19.4L, Calcium Level 8.9, Aspartate Amino Transf (AST/SGOT) 34, Alanine Aminotransferase (ALT/SGPT) 30, Alkaline Phosphatase 75, Total Bilirubin 1.2#H, Direct Bilirubin 0.5H, Total Creatine Kinase 97, Creatine Kinase MB < 1.0, Creatine Kinase MB Relative Index 1.03, Troponin I < 0.02, Total Protein 6.8, Albumin 3.2, Albumin/Globulin Ratio 0.89L, Thyroid Stimulating Hormone (TSH) 1.070 CBC/BMP Laboratory Tests 09/09/18 11:40 Red Blood Count 2.75 L, Mean Corpuscular Volume 102.9 H, Mean Corpuscular Hemoglobin 32.7, Mean Corpuscular Hemoglobin Concent 31.8 L, Red Cell Distribution Width 14.9 H, Neutrophils (%) (Auto) 84.8 H, Lymphocytes (%) (Auto) 6.6 L, Monocytes (%) (Auto) 7.1 H, Eosinophils (%) (Auto) 0.5, Basophils (%) (Auto) 0.4, Neutrophils # (Auto) 12.0 H, Lymphocytes # (Auto) 0.9 L, Monocytes # (Auto) 1.0 H, Eosinophils # (Auto) 0.1, Basophils # (Auto) 0.1 Allergies Coded Allergies: codeine (Verified Allergy, Unknown, 09/07/18) lethargic Home Medications Scheduled Allopurinol (Zyloprim) 300 Mg Tab, 300 MG PO DAILY, (Reported) Aspirin (Aspirin EC) 81 Mg Tab, 81 MG PO DAILY, (Reported) Calcitriol (Calcitriol) 0.25 Mcg Cap, 0.25 MCG PO Q2D, (Reported) Calcium Carbonate (Tums) 500 Mg Chw, 500 MG PO TID, (Reported) 0800/1200/1999 Cholecalciferol (Vitamin D3) (D3-2000) 2,000 Unit Capsule, 2,000 UNIT PO DAILY, (Reported) Cyanocobalamin (Vitamin B-12) (Vitamin B-12) 250 Mcg Tablet, 250 MCG PO DAILY, (Reported) Cyclosporine (Modified) (Neoral) 25 Mg Cap, 75 MG PO BID, (Reported) Dorzolamide HCl/Timolol Maleat (Dorzolamide-Timolol Eye Drops) 10 Ml Drops, 1 DROP OU BID, (Reported) Ferrous Gluconate (Ferrous Gluconate) 324 Mg Tab, 324 MG PO DAILY, (Reported) Folic Acid (Folic Acid) 1 Mg Tab, 1 MG PO DAILY, (Reported) Furosemide (Furosemide) 40 Mg Tab, 40 MG PO BID, (Reported) Hydralazine HCl (Hydralazine HCl) 50 Mg Tablet, 50 MG PO BID, (Reported) Latanoprost (Xalatan) 0.005% 2.5ML Drops, 1 DROP OU QHS, (Reported) Levothyroxine Sodium (Levothyroxine Sodium) 25 Mcg Tab, 25 MCG PO DAILY, (Reported) Lutein (Lutein) 20 Mg Cap, 20 MG PO DAILY, (Reported) Metoprolol Tartrate (Metoprolol Tartrate) 25 Mg Tab, 25 MG PO BID, (Reported) Mycophenolate Sodium (Myfortic) 180 Mg Tab, 180 MG PO BID, (Reported) [place]-3/Dha/Epa/Fish Oil ([place]-3 Fish Oil 1,000 mg Sfgl) 1,000 Mg Capsule, 1 CAP PO DAILY, (Reported) Prednisone (Prednisone) 5 Mg Tab, 5 MG PO DAILY, (Reported) Ranitidine HCl (Ranitidine HCl) 150 Mg Tab, 1 TAB PO BID, (Reported) Warfarin Sodium (Coumadin) 5 Mg Tab, 5 MG PO Q2D, (Reported) ALTERNATES WITH 2.5MG Warfarin Sodium (Coumadin) 2.5 Mg Tab, 2.5 MG PO Q2D, (Reported) ALTERNATES WITH 5MG Scheduled PRN Acetaminophen (Acetaminophen) 500 Mg Tablet, 1,000 MG PO Q6H PRN for PAIN, (Reported) Lactobacillus Acidophilus (Probiotic) 1 Cap Cap, 1 CAP PO DAILY PRN for BOWEL CARE, (Reported) Lizzette Wilburn Sep 09, 2018 15:13
[2018-09-09] MEDS ORDERED: fentaNYL 100 MCG/2 ML INJECTION (J3010) As Ordered ONE (16:19)
[2018-09-09] MEDS ORDERED: propofoL 200 MG/20 ML VIAL As Ordered ONE (16:19)
[2018-09-09] MEDS ORDERED: LIDOCAINE 2% INJ 100 MG/5 ML SDV (FOR ANES.) As Ordered ONE (16:19)
[2018-09-09] MEDS ORDERED: MIDAZOLAM INJ 2 MG/2 ML VIAL (J2250) As Ordered ONE (16:20)
[2018-09-09] MEDS ORDERED: WARFARIN SOD 5 MG TAB PO SCH (17:00)
[2018-09-09] MEDS ORDERED: ONDANSETRON 4MG/2ML VIAL (J2405) IV PRN (17:30)
[2018-09-09] MEDS ORDERED: LR 1,000 ML IV SCH (17:30)
[2018-09-09] MEDS ORDERED: fentaNYL 100 MCG/2 ML INJECTION (J3010) IV PRN (17:30)
[2018-09-09] MEDS: NS 1,000 ML IV SCH (18:07)
[2018-09-09] MEDS: **hydrALAZINE** 50 MG TAB PO SCH (21:20)
[2018-09-09] MEDS: METOPROLOL TART 25 MG TABLET PO SCH (21:20)
[2018-09-09] MEDS: MYCOPHENOLATE SODIUM 180 MG PO SCH (21:20)
[2018-09-09] MEDS: NEORAL 25 MG CAP (J7515) PO SCH (21:22)
[2018-09-09] MEDS: LATANOPROST 0.005% OPHTH SOLN 2.5 ML OU SCH (21:23)
[2018-09-09] MEDS: CALCIUM CARBONATE 500 MG CHEW U/D PO SCH (21:24)
[2018-09-10 02:00] VITALS: BP 131/60
[2018-09-10] MEDS: NS 1,000 ML IV SCH (03:17)
[2018-09-10] MEDS: LEVOTHYROXINE 25MCG TABLET (0.025MG) PO SCH (05:18)
[2018-09-10 06:00] VITALS: BP 120/50
[2018-09-10 06:00] LABS: BASO % 0.3 % (0.0-1.0); EOS # 0.2 10^3/uL (0.0-0.50); EOS % 2.2 % (0.0-3.0); HEMATOCRIT 21.1 % (36.0-47.0); LYMPH # 0.9 10^3/uL (1.5-4.5); LYMPH % 12.7 % (24.0-44.0); MEAN CORPUSCULAR HEMOGLOBIN 32.5 pg (27.0-33.0); MEAN CORPUSCULAR HGB CONC 31.8 g/dl (32.0-36.5); MEAN CORPUSCULAR VOLUME 102.4 fl (80.0-96.0); MONO # 0.7 10^3/uL (0.0-0.8); MONO % 9.4 % (0.0-5.0); NEUTROPHILS # 5.5 10^3/uL (1.8-7.7); NEUTROPHILS % 74.8 % (36.0-66.0); PLATELET COUNT, AUTOMATED 145 10^3/uL (150-450); RED BLOOD COUNT 2.06 10^6/uL (4.00-5.40); WHITE BLOOD COUNT 7.3 10^3/uL (4.0-10.0)
[2018-09-10 06:06] LABS: HEMOGLOBIN 6.7 g/dl (12.0-15.5)
[2018-09-10 06:25] LABS: INR 3.14; PROTHROMBIN TIME 32.2 SECONDS (11.8-14.0)
[2018-09-10 06:27] LABS: CALCIUM LEVEL 7.8 MG/DL (8.8-10.2); CREATININE FOR GFR 2.15 MG/DL (0.55-1.30); MAGNESIUM LEVEL 2.3 MG/DL (1.8-2.4); POTASSIUM SERUM 3.5 MEQ/L (3.5-5.1)
[2018-09-10] MEDS: allopurinoL 300 MG TAB PO SCH (08:56)
[2018-09-10] MEDS: FAMOTIDINE 20 MG TAB PO SCH (08:56)
[2018-09-10] MEDS: METOPROLOL TART 25 MG TABLET PO SCH ×2 (08:56→20:58)
[2018-09-10] MEDS: predniSONE 5 MG TAB PO SCH (08:56)
[2018-09-10] MEDS: ASPIRIN 81 MG ENTERIC TAB PO SCH (08:56)
[2018-09-10] MEDS: NEORAL 25 MG CAP (J7515) PO SCH ×2 (08:56→20:57)
[2018-09-10] MEDS: FOLIC ACID 1 MG TAB PO SCH (08:56)
[2018-09-10] MEDS: FERROUS GLUCONATE 324 MG TAB PO SCH (08:56)
[2018-09-10] MEDS: CALCIUM CARBONATE 500 MG CHEW U/D PO SCH ×3 (08:56→20:57)
[2018-09-10] MEDS: OMEGA-3 1000MG CAPSULE PO SCH (08:56)
[2018-09-10] MEDS: MYCOPHENOLATE SODIUM 180 MG PO SCH ×2 (08:57→20:56)
[2018-09-10] MEDS: **hydrALAZINE** 50 MG TAB PO SCH ×2 (08:57→20:58)
--- NOTE | 2018-09-10 08:58 | ECGEPIP ---
[facility] - ED Test Date: 2018-09-09 Pat Name: MELINDA YAN Department: Room: - Gender: Female Director Of Counseling: : 1945 Requested By: Sana Light Order Number: [id number] Reading MD: Sana Light Measurements Intervals [place] Rate: 62 P: VT: 143 QRS: QRSD: 101 T: 57 QT: 447 QTc: 457 Interpretive Statements SINUS RHYTHM NSTTW abnormalities INCREASED RATE 04/02/17 Electronically Signed on 09-10-2018 8:58:31 EDT by Sana Light
[2018-09-10 10:00] VITALS: BP 132/59
--- NOTE | 2018-09-10 11:30 | IPNPDOC ---
Date Seen The patient was seen on 09/10/18. Progress Note Vascular Surgery Dr Vivas. HPI: Patient is a 72-year-old female who presented to the emergency room with complaints of left arm swelling and redness. Patient had initially presented to the emergency room 2 days ago for evaluation after she noted to experience left arm swelling and redness that occurred spontaneously while [place] [employer]. Patient noted that it began as a small bump that became discolored and slowly began to grow as the day went on. The pt states she left AMA related to issues with her who is also currently admitted to [facility]. Vascular Surgery consulted in ED re LUE hematoma. The pt is S/P hematoma evacuation LUE 09/09/[address] Vivas. This Am the pt states pain is controlled. The LUE bandage is intact with bloody drainage noted in GERA drain. Bleeding had soaked through the dressing and was reinforced with additional kerlix. The pt does have swelling of the left hand but denies coolness, numbness, tingling. Denies any weakness, fatigue, Headache, Chest Pain, Shortness of breath, cough, palpitations, abdominal pain, N/V/D or changes in bowel or bladder habits. PMHx: Polycystic kidney disease s/p bilateral nephrectomy, and bilateral renal transplants, s/p HD, HTN, Gout, Paroxysmal A. fib (on Coumadin), Barretts esophagus, Vertigo, Glaucoma / Macular degeneration PSHx EGD and colonoscopy Removal of seroma Aspiration. A perirectal abscess Ventral hernia repair Bilateral renal transplants Laparoscopic bilateral nephrectomy Cataract removal with implants Parathyroid surgery Temporal artery biopsy Laparoscopic cholecystectomy Perforated bowel 2/2 insertion of PD catheter Left ear duct surgery Removal of intestinal bezoar Dilation and curettage Appendectomy PE: GEN: 72yoF, appears stated age. No acute distress. Alert and oriented x 3. HEENT: Normocephalic, atraumatic. Moist mucous membranes. CHEST: Regular rate and rhythm, +S1, +S2 LUNGS: Clear to auscultation bilaterally. No wheezes, rales, or rhonchi. ABD: Round, soft, non-tender, non-distended. +Bowel sounds throughout. EXT: The LUE is bandaged, there is swelling and ecchymosis noted of the Left hand, manager film strength intact, fingers warm with good cap refill. GERA drain intact. SKIN: Ramos, dry, warm. NEURO: Alert and oriented x 3. Cranial nerves III-XII are intact. No focal deficits appreciated. US LUE 09/07/18 FINDINGS: Soft tissues: Examination of the posterior forearm on the left in the area of clinically observed mass and swelling with cutaneous discoloration demonstrates a complex lobular fluid collection measuring 5.3 x 5.9 x 2.5 cm. Anteriorly the lesion is predominantly cystic and posteriorly there is a ovoid echogenic soft tissue mass measuring 1.9 x 4.8 x 3.2 cm. Finding is consistent with a large complex hematoma. No significant vascularity demonstrated on Doppler. IMPRESSION: Findings consistent with a large layering hematoma in the posterior forearm. Electronically signed by: José Miguel Adorno On 09/07/2018 19:59:[address] Lt UE 09/09/18 There is a soft tissue mass in the the subcutaneous dorsal soft tissues of the forearm extending from the elbow to the junction and of the middle and distal thirds of the forearm measuring 15 cm craniocaudad by 5 cm transversely. The mass is compatible with hematoma, abscess or neoplasm. There is subcutaneous soft tissue edema proximal and distal to this mass. Impression: Large subcutaneous soft tissue mass in the left forearm as described. Electronically Signed by Narinder Lyon MD 09/09/2018 02:37 P CXR 09/09/18 IMPRESSION: No acute infiltrate. Unreviewed DD: Narinder Garcia MD, MD 09/09/18 1313 A&P: 1. LUE hematoma. S/P hematoma evacuation as per Dr Vivas 09/09/18. US 09/07/[address] LUE as above. Hgb 6.7 this AM. Pt to be transfused x 2 u PRBC as per primary team. Coumadin for h/o Afib, INR 3.14. GERA drain intact. The pt is reviewed by Dr Vivas, plan to leave dressing/drain in place for now. Monitor. 2. Afib. Coumadin as above. VS, I&O, 24H, Fishbone Vital Signs/I&O Vital Signs Date Time Temp Pulse Resp B/P (MAP) Pulse Ox O2 Delivery O2 Flow Rate FiO2 09/10/18 10:00 98.1 69 18 132/59 (83) 100 09/09/18 14:58 Room Air I&O- Last 24 Hours up to 6 AM 09/10/18 06:00 Intake Total 1710 ml Output Total 475 ml Balance 1235 ml Laboratory Data 24H LABS Laboratory Tests 2 09/09/18 11:40: Immature Granulocyte % (Auto) 0.6, White Blood Count 14.2H, Red Blood Count 2.75L, Hemoglobin 9.0L, Hematocrit 28.3L, Mean Corpuscular Volume 102.9H, Mean Corpuscular Hemoglobin 32.7, Mean Corpuscular Hemoglobin Concent 31.8L, Red Cell Distribution Width 14.9H, Platelet Count 194, Neutrophils (%) (Auto) 84.8H, Lymphocytes (%) (Auto) 6.6L, Monocytes (%) (Auto) 7.1H, Eosinophils (%) (Auto) 0.5, Basophils (%) (Auto) 0.4, Neutrophils # (Auto) 12.0H, Lymphocytes # (Auto) 0.9L, Monocytes # (Auto) 1.0H, Eosinophils # (Auto) 0.1, Basophils # (Auto) 0.1, Nucleated Red Blood Cells % (auto) 0.0, Prothrombin Time 26.0H, Prothromb Time International Ratio 2.40, Blood Gas Bicarbonate Standard 25.3, Venous Blood pH 7.381, Venous Blood Partial Pressure CO2 46.5, Venous Blood Partial Pressure O2 37.1, Venous Blood Total Carbon Dioxide 28.4H, Venous Blood HCO3 27.0, Venous Blood Oxygen Saturation 68.3, Venous Blood Base Excess 1.5, Anion Gap 8, Glomerular Filtration Rate 19.4L, Calcium Level 8.9, Aspartate Amino Transf (AST/SGOT) 34, Alanine Aminotransferase (ALT/SGPT) 30, Alkaline Phosphatase 75, Total Bilirubin 1.2#H, Direct Bilirubin 0.5H, Total Creatine Kinase 97, Creatine Kinase MB < 1.0, Creatine Kinase MB Relative Index 1.03, Troponin I < 0.02, Total Protein 6.8, Albumin 3.2, Albumin/Globulin Ratio 0.89L, Thyroid Stimulating Hormone (TSH) 1.070 09/10/18 05:46: Immature Granulocyte % (Auto) 0.6, White Blood Count 7.3, Red Blood Count 2.06L, Hemoglobin 6.7#*L, Hematocrit 21.1L, Mean Corpuscular Volume 102.4H, Mean Corpuscular Hemoglobin 32.5, Mean Corpuscular Hemoglobin Concent 31.8L, Red Cell Distribution Width 15.1H, Platelet Count 145L, Neutrophils (%) (Auto) 74.8H, Lymphocytes (%) (Auto) 12.7L, Monocytes (%) (Auto) 9.4H, Eosinophils (%) (Auto) 2.2, Basophils (%) (Auto) 0.3, Neutrophils # (Auto) 5.5, Lymphocytes # (Auto) 0.9L, Monocytes # (Auto) 0.7, Eosinophils # (Auto) 0.2, Basophils # (Auto) 0.0, Nucleated Red Blood Cells % (auto) 0.0, Prothrombin Time 32.2H, Prothromb Time International Ratio 3.14, Anion Gap 6L, Glomerular Filtration Rate 24.0L, Calcium Level 7.8L, Blood Urea Nitrogen 64H, Creatinine 2.15H, Sodium Level 140, Potassium Level 3.5, Chloride Level 107, Carbon Dioxide Level 27, Magnesium Level 2.3 CBC/BMP Laboratory Tests 09/09/18 11:40 Red Blood Count 2.75 L, Mean Corpuscular Volume 102.9 H, Mean Corpuscular Hemoglobin 32.7, Mean Corpuscular Hemoglobin Concent 31.8 L, Red Cell Distribution Width 14.9 H, Neutrophils (%) (Auto) 84.8 H, Lymphocytes (%) (Auto) 6.6 L, Monocytes (%) (Auto) 7.1 H, Eosinophils (%) (Auto) 0.5, Basophils (%) (Auto) 0.4, Neutrophils # (Auto) 12.0 H, Lymphocytes # (Auto) 0.9 L, Monocytes # (Auto) 1.0 H, Eosinophils # (Auto) 0.1, Basophils # (Auto) 0.1 09/10/18 05:46 Red Blood Count 2.06 L, Mean Corpuscular Volume 102.4 H, Mean Corpuscular Hemoglobin 32.5, Mean Corpuscular Hemoglobin Concent 31.8 L, Red Cell Distribution Width 15.1 H, Neutrophils (%) (Auto) 74.8 H, Lymphocytes (%) (Auto) 12.7 L, Monocytes (%) (Auto) 9.4 H, Eosinophils (%) (Auto) 2.2, Basophils (%) (Auto) 0.3, Neutrophils # (Auto) 5.5, Lymphocytes # (Auto) 0.9 L, Monocytes # (Auto) 0.7, Eosinophils # (Auto) 0.2, Basophils # (Auto) 0.0, Calcium Level 7.8 L Lizzette Wilburn Sep 10, 2018 11:30
[2018-09-10 14:00] VITALS: BP 186/85
--- NOTE | 2018-09-10 15:44 | IPNPDOC ---
Text Note Date of Service The patient was seen on 09/10/18. NOTE Subjective: Patient is a 72-year-old female with a past medical history of Polycystic kidney disease s/p bilateral nephrectomy, and bilateral renal trans plants, s/p HD, HTN, Gout, Paroxysmal A. fib (on Coumadin), Barretts esophagus, Vertigo, Glaucoma / Macular degeneration who presented to the emergency room with complaints of left arm swelling and redness. Patient had initially presented to the emergency room 2 days ago for evaluation after she noted to experience left arm swelling and redness that occurred spontaneously while at [employer]. Patient noted that it began as a small bump that became discolored and slowly began to grow as the day went on. Patient denies any trauma to the arm. She denies any insect bites. Denies any fevers or chills. Denies any drainage. Patient was admitted to hospitalist service and taken to the or with Dr. Vivas on 09/09/2018. Patient was seen and examined at the bedside. Patient currently reports some lightheadedness. Denies chest pain, shortness of breath or palpitations. Denies nausea, vomiting. Has reported that her left arm hematoma dressing had to be reinforced overnight. Objective: Vitals (See below) General: Lying in bed, no acute distress, comfortable, AAOx3 HEENT: NC, AT CVS: RRR, +S1S2 Lungs: Fair air entry b/l, -w/r/r Abdomen: Soft, ND, NT Extremities: Trace edema noted, - Calf tenderness, left forearm, and extensive dressing extending up to mid arm, no blood is seen seeping through Assessment and plan: Left arm tenderness/firm/redness/bruising - likely 2/2 hematoma - Had initially presented to the emergency room on 09/07 for evaluation, but had to return home to care for her - Imaging at that time was consistent with a hematoma - Vascular surgery has evaluated patient emergency room; was taken for removal of hematoma at left forearm with Dr. Vivas on 09/09/2018 - Continue with local wound care as per Dr. Vivas Acute blood loss anemia in the setting of a hematoma; likely induced by a hemorrhagic disorder secondary to anticoagulation use (Coumadin) - This morning , hemoglobin is trended down to 6.7, down from a baseline of 9.0 - Will transfused 2 units of PRBC - Will repeat CBC post transfusion WAYNE on CKD3 - Cr baseline of 1.5-17; Cr on admission o 2.58; has improved - Avoid nephrotoxic medications - Will DC IV fluid hydration Polycystic kidney disease s/p bilateral nephrectomy and bilateral renal transpla nts - s/p HD in HTN - BP well controlled - c/w Metoprolol and Hydralazine with holding parameters Gout - c/w Allopurinol Paroxysmal A. fib - On evaluation, patient had a regular rhythm / rate - c/w rate control with metoprolol - Will hold full anticoagulation with Coumadin (re: supratherapeutic INR) Barretts esophagus - c/w Famotidine Vertigo - Currently does not experience any symptoms Glaucoma / Macular degeneration - continue with outpatient regimen Morbid obesity - BMI 62.4 - Complaining medical care GERD - c/w Famotidine DVT prophylaxis - on full anticoagulation with Coumadin VS,Fishbone, I+O VS, Fishbone, I+O Laboratory Tests 09/10/18 05:46 Red Blood Count 2.06 L, Mean Corpuscular Volume 102.4 H, Mean Corpuscular Hemoglobin 32.5, Mean Corpuscular Hemoglobin Concent 31.8 L, Red Cell Distribution Width 15.1 H, Neutrophils (%) (Auto) 74.8 H, Lymphocytes (%) (Auto) 12.7 L, Monocytes (%) (Auto) 9.4 H, Eosinophils (%) (Auto) 2.2, Basophils (%) (Auto) 0.3, Neutrophils # (Auto) 5.5, Lymphocytes # (Auto) 0.9 L, Monocytes # (Auto) 0.7, Eosinophils # (Auto) 0.2, Basophils # (Auto) 0.0, Calcium Level 7.8 L Vital Signs Date Time Temp Pulse Resp B/P (MAP) Pulse Ox O2 Delivery O2 Flow Rate FiO2 09/10/18 14:00 97.6 66 16 186/85 (118) 100 09/09/18 14:58 Room Air I&O- Last 24 Hours up to 6 AM 09/10/18 06:00 Intake Total 1710 ml Output Total 475 ml Balance 1235 ml AMIE CARPENTER MD Sep 10, 2018 15:44
--- NOTE | 2018-09-10 16:47 | CR ---
DATE OF CONSULTATION: 09/10/2018 CONSULTING PHYSICIAN: Dr. Laura Uribe DROP FORGE HAND: Dr. Chastity Watts REASON FOR CONSULTATION: Acute kidney injury on chronic kidney disease (CKD), stage III. HISTORY OF PRESENT ILLNESS: Patient is a 72-year-old female who had originally presented to the [facility] Emergency department on September 07 for evaluation of left arm swelling. Patient stated that she was at [employer] at the time, when the person sitting next to her pointed at her arm and told her that her arm was swelling up. The patient had denied any recent trauma to the area. She did state that she is on a blood thinner, Coumadin, for a history of paroxysmal atrial fibrillation. Patient stated that the arm continued to swell. She did develop some pain in the arm as well. She originally presented to the emergency department and had left to take care of her . She returned on 09/09/2018 as the swelling was worsening and not improving. In the emergency department, the patient received imaging of the upper extremity, which demonstrated a large subcutaneous soft tissue mass in the left forearm. The patient was subsequently admitted to the hospital. The patient was evaluated by vascular surgery who had recommended hematoma evacuation. After her procedure the patient was anemic and received 2 units of PRBCs.The patient carries a medical history significant for polycystic kidney disease with bilateral [place] nephrectomy and a bilateral renal transplant. She has a failed transplant on the right and a functional left lower quadrant allograft on the left. She is under chronic immunosuppression for her renal transplant. She also carries a diagnosis of hypertension, gout, paroxysmal atrial fibrillation, Block's esophagus, glaucoma, and macular degeneration. The patient was found to have an acute kidney injury on chronic kidney disease stage 3, and nephrology was consulted for management and recommendations. PAST MEDICAL HISTORY: 1. Polycystic kidney disease, status post bilateral [place] nephrectomy. 2. Status post hemodialysis in 1979. 3. Hypertension. 4. Gout. 5. Paroxysmal atrial fibrillation, on Coumadin. 6. Block's esophagus. 7. Vertigo. 8. Glaucoma/macular degeneration. 9. Immunosuppression secondary to triple immunosuppression therapy. PAST SURGICAL HISTORY: 1. Esophagogastroduodenoscopy (EGD) and colonoscopy. 2. Ventral hernia repair. 3. Bilateral [place] renal nephrectomy. 4. Cataract removal with implant. 5. Parathyroid surgery. 6. Temporal artery biopsy. 7. Laparoscopic cholecystectomy. 8. Perforated bowel secondary to insertion of peritoneal dialysis (PD) catheter. 9. Removal of intestinal bezoar. 10. Appendectomy. FAMILY HISTORY: Patient has a family history of polycystic kidney disease in her mother, who is at age 65. Patient's father has a history of esophageal stomach cancer and at the age of 67. SOCIAL HISTORY: Patient denies any use of alcohol, tobacco, or illicit drugs. She denied any recent sick contacts or travel. She currently lives with her , who has dementia, whom she cares for. 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 REVIEW OF SYSTEMS: CONSTITUTIONAL: Patient denies any fevers, chills, nausea, vomiting. She does admit to an unintentional weight loss over the past few weeks, which she contributes to poor appetite. CARDIOVASCULAR: Patient denies any palpitations. She denies any shortness of breath. She denies any chest pain. PULMONARY: Patient denies any cough. She denies any shortness of breath. She denies any wheezing. ABDOMEN: Patient denies any nausea, vomiting, diarrhea, or constipation. She denies any abdominal pain. MUSCULOSKELETAL: Patient admits to left arm swelling and pain. PSYCHIATRIC: Patient denies any depression or anxiety. ALLERGIES: CODEINE. INPATIENT MEDICATIONS: - allopurinol 300 mg daily by mouth - aspirin 81 mg daily by mouth - ferrous gluconate 324 mg daily - folic acid 1 mg daily - fish oil one capsule daily - prednisone 5 mg daily - famotidine 20 mg daily - levothyroxine 25 mcg daily - cyclosporin 75 mg twice a day - hydralazine 50 mg twice a day - latanoprost one drop at bedtime, both eyes - metoprolol tartrate 25 mg twice a day - Myfortic twice a day by mouth - calcium carbonate 500 mg three times a day - acetaminophen 1000 mg every 6 hours as needed PHYSICAL EXAMINATION: VITAL SIGNS: Temperature 97.6, pulse 66, respiratory rate 16, blood pressure 132/59, pulse oximetry 100% on room air. GENERAL: Patient is awake, alert, and oriented. She does not appear in any acute distress. She is lying in her bed. She is status post hematoma evacuate with her left arm bandaged. She is conversive. CARDIOVASCULAR: Normal S1, S2, regular rate and rhythm. No clicks, rubs, or murmurs. No jugular venous distention (JVD). PULMONARY: Clear breath sounds bilaterally. No wheezing, rhonchi, or rales. Good respiratory effort. ABDOMEN: Soft, nondistended, nontender to palpation in all four quadrants. Positive bowel sounds. EXTREMITIES: Patient has trace edema in bilateral lower extremities. She has a significant left arm and hand swelling. She is status post hematoma evacuation of the left arm with bandages currently wrapped around the arm. Right arm is without swelling. PSYCHIATRIC: Mood and affect appear appropriate. LABORATORY DATA: Hematology: White blood cell count 7.3, hemoglobin 6.7, hematocrit 21.1, platelet count 145. Chemistry: Sodium 140, potassium 3.5, chloride 107, carbon dioxide 27, creatinine 2.15, fasting glucose 95. Calcium 7.8. Magnesium 2.3. IMAGING: Chest x-ray from September 09 demonstrated no acute infiltrates. Upper extremity CT from September 09 demonstrated soft tissue mass in subcutaneous dorsal soft tissues of the forearm, extending from the elbow to the junction of the middle and distal thirds of the forearm, measuring 15 cm craniocaudad by 5 cm transversely. The mass was compatible with a hematoma, abscess, or neoplasm. There is subcutaneous soft tissue edema proximal and distal to the mass. ASSESSMENT AND PLAN: 1. Acute kidney injury on chronic kidney disease, stage III. Patient has a baseline creatinine of 1.6-1.8. Her creatinine on admission was 2.58. She received some hydration overnight. Her creatinine has come down to 2.15. Will continue with gentle hydration. She has a history of bilateral [place] nephrectomy with a failed right allograft and a functional left lower quadrant autograft. She is currently on triple immunosuppression. We will continue with gentle hydration and monitor for improvement in her renal function. 2. Anemia. Patient has chronic anemia, likely secondary to her renal disease; however, she has acute blood loss anemia secondary to her left arm hematoma. Received hematoma evacuation on her left arm today. She was originally on Coumadin. This is being held. She is currently on aspirin. She had a hemoglobin of 6.7. Today she received transfusion of 2 units of packed red blood cells. Will continue to monitor and transfuse as needed. 3. Chronic immunosuppression. Patient is currently on triple immunosuppression therapy, including cyclosporin, prednisone, and Myfortic. Patient is a risk for infection secondary to immunosuppression. Will monitor. Consultation is greatly appreciated. We will continue to follow patient during her hospital course My faculty preceptor for this patient encounter was physically present during the encounter and was fully available. All aspects of the patient interview, examination, medical decision making process, and medical care plan development were reviewed and approved by the faculty preceptor. The faculty preceptor is aware and concurs with the plan as stated in the body of this note and will attest to such by his/her co-signature. ZARINA
[2018-09-10] MEDS ORDERED: WARFARIN SOD 2.5 MG TAB PO SCH (17:00)
[2018-09-10 18:00] VITALS: BP 138/74
[2018-09-10 18:51] LABS: BASO % 0.2 % (0.0-1.0); EOS # 0.1 10^3/uL (0.0-0.50); EOS % 1.2 % (0.0-3.0); HEMATOCRIT 29.9 % (36.0-47.0); HEMOGLOBIN 9.7 g/dl (12.0-15.5); LYMPH # 0.9 10^3/uL (1.5-4.5); LYMPH % 10.9 % (24.0-44.0); MEAN CORPUSCULAR HEMOGLOBIN 30.8 pg (27.0-33.0); MEAN CORPUSCULAR HGB CONC 32.4 g/dl (32.0-36.5); MEAN CORPUSCULAR VOLUME 94.9 fl (80.0-96.0); MONO # 0.8 10^3/uL (0.0-0.8); MONO % 9.3 % (0.0-5.0); NEUTROPHILS # 6.6 10^3/uL (1.8-7.7); PLATELET COUNT, AUTOMATED 163 10^3/uL (150-450); RED BLOOD COUNT 3.15 10^6/uL (4.00-5.40); WHITE BLOOD COUNT 8.4 10^3/uL (4.0-10.0)
[2018-09-10] MEDS: LATANOPROST 0.005% OPHTH SOLN 2.5 ML OU SCH (20:58)
[2018-09-10 22:00] VITALS: BP 152/64
[2018-09-11 02:00] VITALS: BP 132/68
[2018-09-11] MEDS: LEVOTHYROXINE 25MCG TABLET (0.025MG) PO SCH (05:52)
[2018-09-11 06:00] VITALS: BP 142/71
[2018-09-11 06:11] LABS: BASO % 0.5 % (0.0-1.0); EOS # 0.3 10^3/uL (0.0-0.50); EOS % 4.7 % (0.0-3.0); HEMATOCRIT 26.6 % (36.0-47.0); HEMOGLOBIN 8.7 g/dl (12.0-15.5); LYMPH # 1.4 10^3/uL (1.5-4.5); LYMPH % 21.5 % (24.0-44.0); MEAN CORPUSCULAR HEMOGLOBIN 30.9 pg (27.0-33.0); MEAN CORPUSCULAR HGB CONC 32.7 g/dl (32.0-36.5); MEAN CORPUSCULAR VOLUME 94.3 fl (80.0-96.0); MONO # 0.7 10^3/uL (0.0-0.8); MONO % 10.5 % (0.0-5.0); NEUTROPHILS # 4.1 10^3/uL (1.8-7.7); NEUTROPHILS % 62.3 % (36.0-66.0); PLATELET COUNT, AUTOMATED 136 10^3/uL (150-450); RED BLOOD COUNT 2.82 10^6/uL (4.00-5.40); WHITE BLOOD COUNT 6.6 10^3/uL (4.0-10.0)
[2018-09-11 06:32] LABS: CALCIUM LEVEL 7.9 MG/DL (8.8-10.2); CREATININE FOR GFR 1.74 MG/DL (0.55-1.30); GLOMERULAR FILTRATION RATE 30.6 (>39); INR 2.54; MAGNESIUM LEVEL 2.3 MG/DL (1.8-2.4); POTASSIUM SERUM 3.7 MEQ/L (3.5-5.1); PROTHROMBIN TIME 27.2 SECONDS (11.8-14.0)
[2018-09-11] MEDS: FOLIC ACID 1 MG TAB PO SCH (08:30)
[2018-09-11] MEDS: OMEGA-3 1000MG CAPSULE PO SCH (08:30)
[2018-09-11] MEDS: allopurinoL 300 MG TAB PO SCH (08:30)
[2018-09-11] MEDS: predniSONE 5 MG TAB PO SCH (08:30)
[2018-09-11] MEDS: FAMOTIDINE 20 MG TAB PO SCH (08:30)
[2018-09-11] MEDS: NEORAL 25 MG CAP (J7515) PO SCH (08:30)
[2018-09-11] MEDS: ASPIRIN 81 MG ENTERIC TAB PO SCH (08:30)
[2018-09-11] MEDS: CALCIUM CARBONATE 500 MG CHEW U/D PO SCH ×2 (08:30→12:32)
[2018-09-11 08:31] VITALS: BP 161/86
[2018-09-11] MEDS: FERROUS GLUCONATE 324 MG TAB PO SCH (08:31)
[2018-09-11] MEDS: METOPROLOL TART 25 MG TABLET PO SCH (08:31)
[2018-09-11] MEDS: **hydrALAZINE** 50 MG TAB PO SCH (08:31)
[2018-09-11] MEDS: MYCOPHENOLATE SODIUM 180 MG PO SCH (08:32)
--- NOTE | 2018-09-11 11:52 | IPNPDOC ---
Date Seen The patient was seen on 09/11/18. Progress Note Vascular Surgery Dr Vivas. HPI: Patient is a 72-year-old female who presented to the emergency room with complaints of left arm swelling and redness. Patient had initially presented to the emergency room 2 days ago for evaluation after she noted to experience left arm swelling and redness that occurred spontaneously while at [employer]. Patient noted that it began as a small bump that became discolored and slowly began to grow as the day went on. The pt states she left AMA related to issues with her who is also currently admitted to [facility]. Vascular Surgery consulted in ED re LUE hematoma. The pt is S/P hematoma evacuation LUE 09/09/[address] Vivas. This Am the pt states pain is controlled. Swelling has decreased. Denies any weakness, fatigue, Headache, Chest Pain, Shortness of breath, cough, palpitations, abdominal pain, N/V/D or changes in bowel or bladder habits PE: GEN: 72yoF, appears stated age. No acute distress. Alert and oriented x 3. HEENT: Normocephalic, atraumatic. Moist mucous membranes. CHEST: Regular rate and rhythm, +S1, +S2 LUNGS: Clear to auscultation bilaterally. No wheezes, rales, or rhonchi. ABD: Round, soft, non-tender, non-distended. +Bowel sounds throughout. EXT: The LUE is bandaged, there is swelling and ecchymosis from hand to elbow area, senior paralegal strength intact, fingers warm with good cap refill. GERA drain is removed. Edith intact. Dressing is replaced. SKIN: [place], dry, warm. NEURO: Alert and oriented x 3. Cranial nerves III-XII are intact. No focal deficits appreciated. A&P: 1. LUE hematoma. S/P hematoma evacuation as per Dr Vivas 09/09/18. Hgb 8.7 this AM. S/P 2 u PRBC as per primary team. Coumadin for h/o Afib, INR 2.54. GERA drain is removed. Dressing is replaced. The pt is reviewed by Dr Vivas, plan to continue daily dressing changes. Reviewed with pt who feels comfortable doing them herself with neighbors who help her. Advised pt to FU in office early next week. 2. Afib. Coumadin as above. VS, I&O, 24H, Fishbone Vital Signs/I&O Vital Signs Date Time Temp Pulse Resp B/P (MAP) Pulse Ox O2 Delivery O2 Flow Rate FiO2 09/11/18 08:31 66 161/86 09/11/18 06:00 96.8 15 100 09/09/18 14:58 Room Air I&O- Last 24 Hours up to 6 AM 09/11/18 06:00 Intake Total 1490 ml Output Total 435 ml Balance 1055 ml Laboratory Data 24H LABS Laboratory Tests 2 09/10/18 14:02: Methicillin-Resist S.aureus DNA PCR NOT DETECTED 09/10/18 18:01: Immature Granulocyte % (Auto) 0.4, White Blood Count 8.4, Red Blood Count 3.15L, Hemoglobin 9.7#L, Hematocrit 29.9L, Mean Corpuscular Volume 94.9, Mean Corpuscular Hemoglobin 30.8, Mean Corpuscular Hemoglobin Concent 32.4, Red Cell Distribution Width 18.3H, Platelet Count 163, Neutrophils (%) (Auto) 78.0H, Lymphocytes (%) (Auto) 10.9L, Monocytes (%) (Auto) 9.3H, Eosinophils (%) (Auto) 1.2, Basophils (%) (Auto) 0.2, Neutrophils # (Auto) 6.6, Lymphocytes # (Auto) 0.9L, Monocytes # (Auto) 0.8, Eosinophils # (Auto) 0.1, Basophils # (Auto) 0.0, Nucleated Red Blood Cells % (auto) 0.0 09/11/18 06:01: Immature Granulocyte % (Auto) 0.5, White Blood Count 6.6, Red Blood Count 2.82L, Hemoglobin 8.7L, Hematocrit 26.6L, Mean Corpuscular Volume 94.3, Mean C orpuscular Hemoglobin 30.9, Mean Corpuscular Hemoglobin Concent 32.7, Red Cell Distribution Width 18.0H, Platelet Count 136L, Neutrophils (%) (Auto) 62.3, Lymphocytes (%) (Auto) 21.5L, Monocytes (%) (Auto) 10.5H, Eosinophils (%) (Auto) 4.7H, Basophils (%) (Auto) 0.5, Neutrophils # (Auto) 4.1, Lymphocytes # (Auto) 1.4L, Monocytes # (Auto) 0.7, Eosinophils # (Auto) 0.3, Basophils # (Auto) 0.0, Nucleated Red Blood Cells % (auto) 0.0, Prothrombin Time 27.2H, Prothromb Time International Ratio 2.54, Anion Gap 6L, Glomerular Filtration Rate 30.6L, Blood Urea Nitrogen 51H, Creatinine 1.74H, Sodium Level 141, Potassium Level 3.7, Chloride Level 109H, Carbon Dioxide Level 26, Calcium Level 7.9L, Magnesium Level 2.3 CBC/BMP Laboratory Tests 09/10/18 18:01 Red Blood Count 3.15 L, Mean Corpuscular Volume 94.9, Mean Corpuscular Hemoglobin 30.8, Mean Corpuscular Hemoglobin Concent 32.4, Red Cell Distribution Width 18.3 H, Neutrophils (%) (Auto) 78.0 H, Lymphocytes (%) (Auto) 10.9 L, Monocytes (%) (Auto) 9.3 H, Eosinophils (%) (Auto) 1.2, Basophils (%) (Auto) 0.2, Neutrophils # (Auto) 6.6, Lymphocytes # (Auto) 0.9 L, Monocytes # (Auto) 0.8, Eosinophils # (Auto) 0.1, Basophils # (Auto) 0.0 09/11/18 06:01 Red Blood Count 2.82 L, Mean Corpuscular Volume 94.3, Mean Corpuscular Hemoglobin 30.9, Mean Corpuscular Hemoglobin Concent 32.7, Red Cell Distribution Width 18.0 H, Neutrophils (%) (Auto) 62.3, Lymphocytes (%) (Auto) 21.5 L, Monocytes (%) (Auto) 10.5 H, Eosinophils (%) (Auto) 4.7 H, Basophils (%) (Auto) 0.5, Neutrophils # (Auto) 4.1, Lymphocytes # (Auto) 1.4 L, Monocytes # (Auto) 0.7, Eosinophils # (Auto) 0.3, Basophils # (Auto) 0.0, Calcium Level 7.9 L Lizzette Wilburn Sep 11, 2018 11:52
[2018-09-11 14:00] VITALS: BP 125/72
[2018-09-11 14:10] LABS: PERCENT SATURATION 11.7 % (13.2-45.0)
--- NOTE | 2018-09-11 15:50 | DS.PDOC ---
Discharge Summary General Date of Admission Sep 09, 2018 at 13:43 Date of Discharge 09/11/2018 Discharge Summary PROCEDURES PERFORMED DURING STAY: Evacuation of hematoma at left forearm with Dr. Vivas on 09/09/2018 ADMITTING DIAGNOSES / DISCHARGE DIAGNOSES: Left arm tenderness/firm/redness/bruising - likely 2/2 hematoma Acute blood loss anemia in the setting of a hematoma; likely induced by a hemorrhagic disorder secondary to anticoagulation use (Coumadin) WAYNE on CKD3 Polycystic kidney disease s/p bilateral nephrectomy and bilateral renal transplants HTN Gout Paroxysmal A. fib Barretts esophagus Vertigo Glaucoma / Macular degeneration Morbid obesity GERD DVT prophylaxis COMPLICATIONS/CHIEF COMPLAINT: Left arm pain / redness / swelling HISTORY OF PRESENT ILLNESS: Patient is a 72-year-old female with a past medical history of Polycystic kidney disease s/p bilateral nephrectomy, and bilateral renal transplants, s/p HD, HTN, Gout, Paroxysmal A. fib (on Coumadin), Barretts esophagus, Vertigo, Glaucoma / Macular degeneration who presented to the emergency room with complaints of left arm swelling and redness. Patient had initially presented to the emergency room 2 days ago for evaluation after she noted to experience left arm swelling and redness that occurred spontaneously while at [facility]. Patient noted that it began as a small bump that became discolored and slowly began to grow as the day went on. Patient denies any trauma to the arm. She denies any insect bites. Denies any fevers or chills. Denies any drainage. Patient was admitted to hospitalist service and taken to the or with Dr. Vivas on 09/09/2018. HOSPITAL COURSE: Left arm tenderness/firm/redness/bruising - likely 2/2 hematoma - Had initially presented to the emergency room on 09/07 for evaluation, but had to return home to care for her - Imaging at that time was consistent with a hematoma - Vascular surgery has evaluated patient emergency room; was taken for removal of hematoma at left forearm with Dr. Vivas on 09/09/2018 - Continue with local wound care as per Dr. Vivas - Will have outpatient follow-up with Dr. Ortega Watts within the next 7 days Acute blood loss anemia in the setting of a hematoma; likely induced by a hemorrhagic disorder secondary to anticoagulation use (Coumadin) - This morning , hemoglobin is trended down to 6.7, down from a baseline of 9.0 - Will transfused 2 units of PRBC - Hg has improved appropriately after transfusions WAYNE on CKD3 - Cr baseline of 1.5-17; Cr on admission o 2.58; has improved - Avoid nephrotoxic medications - s/p IV fluid hydration Polycystic kidney disease s/p bilateral nephrectomy and bilateral renal transplants - s/p HD in HTN - BP well controlled - c/w Metoprolol and Hydralazine with holding parameters Gout - c/w Allopurinol Paroxysmal A. fib - On evaluation, patient had a regular rhythm / rate - c/w rate control with metoprolol - INR within therapeutic range - Resume full anticoagulation with Coumadin Barretts esophagus - c/w Famotidine Vertigo - Currently does not experience any symptoms Glaucoma / Macular degeneration - continue with outpatient regimen Morbid obesity - BMI 62.4 - Complaining medical care GERD - c/w Famotidine DVT prophylaxis - on full anticoagulation with Coumadin DISCHARGE MEDICATIONS: Please see below. ALLERGIES: Please see below. PHYSICAL EXAMINATION ON DISCHARGE: Vitals (See below) General: Lying in bed, no acute distress, comfortable, AAOx3 HEENT: NC, AT CVS: RRR, +S1S2 Lungs: Fair air entry b/l, no appreciable wheezing, rhonchi or rales Abdomen: Soft, nondistended and nontender Extremities: Trace edema noted, - Calf tenderness, left forearm with dressing in place, GERA drain present LABORATORY DATA: Please see below. ACTIVITY: [As tolerated]. DISCHARGE PLAN: Follow-up with Dr. Vivas and Dr. Watts within the next 7 days Remain compliant with treatment plan and medications Return to the ER if you experience any problems DISPOSITION: Home with services DISCHARGE CONDITION: [Stable]. TIME SPENT ON DISCHARGE: 40 minutes Vital Signs/I&Os Vital Signs Date Time Temp Pulse Resp B/P (MAP) Pulse Ox O2 Delivery O2 Flow Rate FiO2 09/11/18 14:00 96.8 107 18 125/72 (89) 95 09/09/18 14:58 Room Air I&O- Last 24 Hours up to 6 AM 09/11/18 06:00 Intake Total 1490 ml Output Total 435 ml Balance 1055 ml Laboratory Data Labs 24H Laboratory Tests 2 09/10/18 18:01: Immature Granulocyte % (Auto) 0.4, White Blood Count 8.4, Red Blood Count 3.15L, Hemoglobin 9.7#L, Hematocrit 29.9L, Mean Corpuscular Volume 94.9, Mean Corpuscular Hemoglobin 30.8, Mean Corpuscular Hemoglobin Concent 32.4, Red Cell Distribution Width 18.3H, Platelet Count 163, Neutrophils (%) (Auto) 78.0H, Lymphocytes (%) (Auto) 10.9L, Monocytes (%) (Auto) 9.3H, Eosinophils (%) (Auto) 1.2, Basophils (%) (Auto) 0.2, Neutrophils # (Auto) 6.6, Lymphocytes # (Auto) 0.9L, Monocytes # (Auto) 0.8, Eosinophils # (Auto) 0.1, Basophils # (Auto) 0.0, Nucleated Red Blood Cells % (auto) 0.0 09/11/18 06:01: Immature Granulocyte % (Auto) 0.5, White Blood Count 6.6, Red Blood Count 2.82L, Hemoglobin 8.7L, Hematocrit 26.6L, Mean Corpuscular Volume 94.3, Mean Corpuscular Hemoglobin 30.9, Mean Corpuscular Hemoglobin Concent 32.7, Red Cell Distribution Width 18.0H, Platelet Count 136L, Neutrophils (%) (Auto) 62.3, Lymphocytes (%) (Auto) 21.5L, Monocytes (%) (Auto) 10.5H, Eosinophils (%) (Auto) 4.7H, Basophils (%) (Auto) 0.5, Neutrophils # (Auto) 4.1, Lymphocytes # (Auto) 1.4L, Monocytes # (Auto) 0.7, Eosinophils # (Auto) 0.3, Basophils # (Auto) 0.0, Nucleated Red Blood Cells % (auto) 0.0, Prothrombin Time 27.2H, Prothromb Time International Ratio 2.54, Anion Gap 6L, Glomerular Filtration Rate 30.6L, Blood Urea Nitrogen 51H, Creatinine 1.74H, Sodium Level 141, Potassium Level 3.7, Chloride Level 109H, Carbon Dioxide Level 26, Calcium Level 7.9L, Magnesium Level 2.3, Iron Level 22L, Total Iron Binding Capacity 188L, Transferrin % Saturation 11.7L, Ferritin 260H CBC/BMP Laboratory Tests 09/10/18 18:01 Red Blood Count 3.15 L, Mean Corpuscular Volume 94.9, Mean Corpuscular Hemoglobin 30.8, Mean Corpuscular Hemoglobin Concent 32.4, Red Cell Distribution Width 18.3 H, Neutrophils (%) (Auto) 78.0 H, Lymphocytes (%) (Auto) 10.9 L, Monocytes (%) (Auto) 9.3 H, Eosinophils (%) (Auto) 1.2, Basophils (%) (Auto) 0.2, Neutrophils # (Auto) 6.6, Lymphocytes # (Auto) 0.9 L, Monocytes # (Auto) 0.8, Eosinophils # (Auto) 0.1, Basophils # (Auto) 0.0 09/11/18 06:01 Red Blood Count 2.82 L, Mean Corpuscular Volume 94.3, Mean Corpuscular Hemoglobin 30.9, Mean Corpuscular Hemoglobin Concent 32.7, Red Cell Distribution Width 18.0 H, Neutrophils (%) (Auto) 62.3, Lymphocytes (%) (Auto) 21.5 L, Monocytes (%) (Auto) 10.5 H, Eosinophils (%) (Auto) 4.7 H, Basophils (%) (Auto) 0.5, Neutrophils # (Auto) 4.1, Lymphocytes # (Auto) 1.4 L, Monocytes # (Auto) 0.7, Eosinophils # (Auto) 0.3, Basophils # (Auto) 0.0, Calcium Level 7.9 L Discharge Medications Scheduled Allopurinol (Zyloprim) 300 Mg Tab, 300 MG PO DAILY, (Reported) Aspirin (Aspirin EC) 81 Mg Tab, 81 MG PO DAILY, (Reported) Calcitriol (Calcitriol) 0.25 Mcg Cap, 0.25 MCG PO Q2D, (Reported) Calcium Carbonate (Tums) 500 Mg Chw, 500 MG PO TID, (Reported) 0800/1200/1999 Cholecalciferol (Vitamin D3) (D3-2000) 2,000 Unit Capsule, 2,000 UNIT PO DAILY, (Reported) Cyanocobalamin (Vitamin B-12) (Vitamin B-12) 250 Mcg Tablet, 250 MCG PO DAILY, (Reported) Cyclosporine (Modified) (Neoral) 25 Mg Cap, 75 MG PO BID, (Reported) Dorzolamide HCl/Timolol Maleat (Dorzolamide-Timolol Eye Drops) 10 Ml Drops, 1 DROP OU BID, (Reported) Ferrous Gluconate (Ferrous Gluconate) 324 Mg Tab, 324 MG PO DAILY, (Reported) Folic Acid (Folic Acid) 1 Mg Tab, 1 MG PO DAILY, (Reported) Furosemide (Furosemide) 40 Mg Tab, 40 MG PO BID, (Reported) Hydralazine HCl (Hydralazine HCl) 50 Mg Tablet, 50 MG PO BID, (Reported) Latanoprost (Xalatan) 0.005% 2.5ML Drops, 1 DROP OU QHS, (Reported) Levothyroxine Sodium (Levothyroxine Sodium) 25 Mcg Tab, 25 MCG PO DAILY, (Reported) Lutein (Lutein) 20 Mg Cap, 20 MG PO DAILY, (Reported) Metoprolol Tartrate (Metoprolol Tartrate) 25 Mg Tab, 25 MG PO BID, (Reported) Mycophenolate Sodium (Myfortic) 180 Mg Tab, 180 MG PO BID, (Reported) [place]-3/Dha/Epa/Fish Oil ([place]-3 Fish Oil 1,000 mg Sfgl) 1,000 Mg Capsule, 1 CAP PO DAILY, (Reported) Prednisone (Prednisone) 5 Mg Tab, 5 MG PO DAILY, (Reported) Ranitidine HCl (Ranitidine HCl) 150 Mg Tab, 1 TAB PO BID, (Reported) Warfarin Sodium (Coumadin) 5 Mg Tab, 5 MG PO Q2D, (Reported) ALTERNATES WITH 2.5MG Warfarin Sodium (Coumadin) 2.5 Mg Tab, 2.5 MG PO Q2D, (Reported) ALTERNATES WITH 5MG Scheduled PRN Acetaminophen (Acetaminophen) 500 Mg Tablet, 1,000 MG PO Q6H PRN for PAIN, (Reported) Lactobacillus Acidophilus (Probiotic) 1 Cap Cap, 1 CAP PO DAILY PRN for BOWEL CARE, (Reported) Allergies Coded Allergies: codeine (Verified Allergy, Unknown, 09/07/18) AMIE Cooper MD Sep 11, 2018 15:50
--- NOTE | 2018-09-11 19:28 | IPN ---
DATE: 09/11/2018 SUBJECTIVE: The patient was seen and examined this morning at bedside. She currently has no new complaints. She states that the swelling in her hand and arm on the left has gone down. Patient is planned to be discharged this evening. OBJECTIVE: VITAL SIGNS: Temperature 97.2, pulse 65, respiratory rate 17, blood pressure 132/68, pulse oximetry 98% on room air. GENERAL: Patient is awake, alert. She is oriented. She does not appear in any acute distress. Her left arm is currently bandaged. She is conversive. CARDIOVASCULAR: Normal S1, S2. Regular rate and rhythm. No clicks, rubs or murmurs. No jugular venous distention. PULMONARY: Clear breath sounds bilaterally. No wheezes, rhonchi or rales. Good respiratory effort. ABDOMEN: Soft, nondistended, nontender to palpation in all four quadrants. Positive bowel sounds throughout. EXTREMITIES: Patient has continued trace edema in her bilateral lower extremities. She has improvement in her left arm and hand swelling from previous examination. She is status post hematoma evacuation in the left arm. Her left upper extremity is currently wrapped in bandages. Her right arm is without any swelling or edema. PSYCHIATRIC: Mood and affect appear appropriate. LABORATORY DATA: Hematology: White blood cells 6.6, hemoglobin 8.7, hematocrit 26.6, platelet count 136. Chemistries: Sodium 141, potassium 3.7, chloride 109, CO2 26, BUN 51, creatinine 1.74, fasting glucose 92, calcium 7.9, magnesium 2.3. Iron 22. Total iron binding capacity 188. Transferrin saturation 11.7. Ferritin 260. ASSESSMENT AND PLAN: 1. Acute kidney injury on chronic kidney disease stage III: Patient has a baseline creatinine of 1.6 to 1.8. She is currently at her baseline. She has improved with gentle hydration overnight. She is planned to be discharged with followup with nephrology in one week. 2. Anemia: Patient has anemia, which may be secondary to renal disease or iron deficiency. She has had acute blood loss anemia secondary to her left arm hematoma. She received a hematoma evacuation on her left arm yesterday. She was originally on Coumadin. She has received 2 units of packed red blood cells during her hospital stay. She will follow up with the nephrology office on one week regarding her acute kidney injury. 3. Chronic immunosuppression: The patient is currently on triple immunosuppression therapy, including cyclosporin, prednisone and Myfortic. She is at risk for infection secondary to immunosuppression. MTDD
--- NOTE | 2018-10-08 10:02 | RO ---
DATE OF PROCEDURE: 09/09/2018 ATTENDING SURGEON: Dr. Sage Vivas. COREMAKER EXPERIMENTAL: None. PREOPERATIVE DIAGNOSIS: Renal failure, left arm hematoma, postoperative diagnosis. PROCEDURE: Evacuation of left arm hematoma with debridement of nonviable tissue. INDICATION The patient is a 72-year-old female who developed a spontaneous left arm hematoma with pressure on the overlying skin with concerns for necrosis. The patient will undergo evacuation of the hematoma with debridement of nonviable tissue and closure of the wound. ANESTHESIA: Local MAC. ESTIMATED BLOOD LOSS: 30 mL of acute blood loss. 500 mL of old hematoma. IV FLUIDS: 250 mL SPECIMEN: None. COMPLICATIONS: None. DRAINS: #10 GERA. IMPLANTS: None. PROCEDURE: The patient was taken to the operating room, placed supine on the operating table and prepped and draped in a standard surgical fashion. A small incision was made over the hematoma which spontaneously elongated due to the pressure of the hematoma extending for approximately 10-12 cm along the length of the arm hematoma was evacuated as well as excisional debridement of subcutaneous tissue and skin which was nonviable, down to healthy bleeding tissue. The wound was then copiously irrigated. A #10 GERA was placed in the wounds and the skin was approximated using jenifer. Dressings were then applied. The patient tolerated the procedure well. All instrument, sponge, needle counts were correct at the end the case. There were no complications. Dr. Vivas was present for directed the entire case. The patient was transferred to the recovery room and subsequent to the floor in stable condition that the end of the dictation.
== END 2018-09-11 15:00 | disposition home or self-care (01) | DRG 803 ==
LOC: M ED 10:19 → EEVIPCON 13:43 → M ED INP 13:43 → M MSPAV 17:48
PROVIDERS: ADMIT Internal Medicine; ATTEND Internal Medicine
PROC: 0KC80ZZ Extirpation of Matter from Left Upper Arm Muscle, Open Approach (ICD-10-PCS; 2018-09-09)
PROC: 0JBF0ZZ Excision of Left Upper Arm Subcutaneous Tissue and Fascia, Open Approach (ICD-10-PCS; principal; 2018-09-09 14:22)
DX: D68.32 Hemorrhagic disorder due to extrinsic circulating anticoagulants (principal); Z94.0 Kidney transplant status; N17.9 Acute kidney failure, unspecified; D62 Acute posthemorrhagic anemia; Q61.3 Polycystic kidney, unspecified; M79.81 Nontraumatic hematoma of soft tissue; I12.9 Hypertensive chronic kidney disease with stage 1 through stage 4 chronic kidney disease, or unspecified chronic kidney disease; M10.9 Gout, unspecified; I48.0 Paroxysmal atrial fibrillation; K22.70 Barrett's esophagus without dysplasia; R42 Dizziness and giddiness; H40.9 Unspecified glaucoma; N18.3 Chronic kidney disease, stage 3 (moderate); H35.30 Unspecified macular degeneration; Z79.82 Long term (current) use of aspirin; Z79.52 Long term (current) use of systemic steroids; Z79.01 Long term (current) use of anticoagulants; Z90.5 Acquired absence of kidney; Z79.899 Other long term (current) drug therapy; Z88.5 Allergy status to narcotic agent; Z90.49 Acquired absence of other specified parts of digestive tract; Z98.49 Cataract extraction status, unspecified eye; Z96.1 Presence of intraocular lens; S50.12XA Contusion of left forearm, initial encounter; X58.XXXA Exposure to other specified factors, initial encounter; Y92.89 Other specified places as the place of occurrence of the external cause; Z86.718 Personal history of other venous thrombosis and embolism

== ENCOUNTER → 2018-10-07 | Outpatient (CLI) | payer MEDICARE ==
[~2018-10-07] MED LIST changes: +ACET-683 PO; +DORZ2SOL5 OU; +HYDR50TA PO; +OMEGCAP4 PO; -OMEP1CAP73 PO; +OMEP20CA4 PO; +OXYB10TA2 PO; -OXYB10TA23 PO; +VITA200012 PO; +VITA250T50 PO; +XALA0.007 OU
--- NOTE | 2018-10-07 10:32 | REP ---
CT OF THE LUMBAR SPINE WITHOUT CONTRAST: REASON FOR EXAMINATION: Spondylosis of the lumbar region. COMPARISON: CT of the abdomen and pelvis without contrast 07/18/2017. TECHNIQUE: Axial CT of the lumbar spine was performed with review of bone reformatted images in the axial, coronal and saggital planes. FINDINGS: There S-shaped scoliosis of the lumbosacral spine. There is 4 mm anterolisthesis of L3 on L4. There is left lateral subluxation of L3 on L4. Vertebral body heights are maintained. There is multilevel disc space narrowing and marginal osteophytosis, worse at L3-S1 and T12-L1 with vacuum disc phenomenon. There is no acute fracture. LEVEL OF SPECIFIC OBSERVATIONS: T12-L1 (sagittal images only): Diffuse disc bulge. L1-L2 and L2-L3: No significant spinal canal stenosis or neural foraminal compromise. L3-L4: Anterolisthesis with uncovering of the disc and questionable disc extrusion with resulting narrowing of the spinal canal and bilateral neural foraminal narrowing. L4-L5 and L5-S1: Diffuse disc bulge with spinal canal stenosis and bilateral neural foraminal narrowing. The [place] kidneys are not identified. Note is made of left renal transplant in the left iliac fossa. There is peripherally calcified soft tissue structure in the right lower pelvis, presumably a failed transplant. IMPRESSION: 1. S- shaped lumbosacral scoliosis with left lateral subluxation of L3 on L4 and grade 1 anterolisthesis of L3 on L4. 2. Multi-level degenerative changes of the lumbar spine, worse at L4-L5 and L5-S1 with spinal canal and bilateral neural foraminal narrowing. Electronically Signed by Shamir Kidd MD 10/08/2018 09:19 A
== END ==
LOC: M RAD 07:54
PROVIDERS: ATTEND Physician Assistant
DX: M51.36 Other intervertebral disc degeneration, lumbar region (principal); M51.37 Other intervertebral disc degeneration, lumbosacral region; M41.27 Other idiopathic scoliosis, lumbosacral region

== ENCOUNTER → 2018-10-24 | Outpatient (REF) | payer MEDICARE ==
[~2018-10-24] MED LIST changes: +OMEP1CAP73 PO; -OMEP20CA4 PO; -OXYB10TA2 PO; +OXYB10TA23 PO
== END ==
LOC: M LAB REF 12:39
PROVIDERS: ATTEND Internal Medicine Nephrology
DX: Z48.22 Encounter for aftercare following kidney transplant (principal); Z94.0 Kidney transplant status

== ENCOUNTER → 2018-11-18 | Outpatient (CLI) | payer MEDICARE ==
[~2018-11-18] MED LIST changes: -OMEP1CAP73 PO; +OMEP20CA4 PO; +OXYB10TA2 PO; -OXYB10TA23 PO
[2018-11-18 09:51] LABS: BASO % 0.4 % (0.0-1.0); EOS # 0.2 10^3/uL (0.0-0.5); EOS % 2.6 % (0.0-3.0); HEMATOCRIT 36.7 % (36.0-47.0); HEMOGLOBIN 11.6 g/dl (12.0-15.5); LYMPH # 2.2 10^3/uL (1.5-5.0); LYMPH % 23.8 % (24.0-44.0); MEAN CORPUSCULAR HEMOGLOBIN 32.1 pg (27.0-33.0); MEAN CORPUSCULAR HGB CONC 31.6 g/dl (32.0-36.5); MEAN CORPUSCULAR VOLUME 101.7 fl (80.0-96.0); MONO # 0.9 10^3/uL (0.0-0.8); MONO % 9.1 % (0.0-5.0); NEUTROPHILS # 5.9 10^3/uL (1.5-8.5); NEUTROPHILS % 63.7 % (36.0-66.0); PLATELET COUNT, AUTOMATED 258 10^3/uL (150-450); RED BLOOD COUNT 3.61 10^6/uL (4.00-5.40); WHITE BLOOD COUNT 9.3 10^3/uL (4.0-10.0)
[2018-11-18 09:52] LABS: APPEARANCE, URINE CLEAR (CLEAR); BACTERIA, URINE AUTO 1+ (NEGATIVE); BILIRUBIN, URINE AUTO NEGATIVE (NEGATIVE); BLOOD, URINE BLOOD NEGATIVE (NEGATIVE); COLOR, URINE YELLOW (YELLOW); GLUCOSE, URINE (UA) AUTO NEGATIVE (NEGATIVE); KETONE, URINE AUTO NEGATIVE (NEGATIVE); LEUKOCYTE ESTERASE, URINE AUTO 1+ (NEGATIVE); MUCUS, URINE SMALL (NEGATIVE); NITRITE, URINE AUTO POSITIVE (NEGATIVE); PROTEIN, URINE AUTO NEGATIVE (NEGATIVE); RBC, URINE AUTO 1 /HPF (0-3); SPECIFIC GRAVITY URINE AUTO 1.012 (1.002-1.035); SQUAMOUS EPITHELIAL CELL UR AU 0 /HPF (0-6); UROBILINOGEN, URINE AUTO 0.2 mg/dL (0.0-2.0); WBC, URINE AUTO 31 /HPF (0-3)
[2018-11-18 10:12] LABS: ALBUMIN 3.5 GM/DL (3.2-5.2); CALCIUM LEVEL 9.7 MG/DL (8.8-10.2); CREATININE FOR GFR 2.34 MG/DL (0.55-1.30); GLOMERULAR FILTRATION RATE 21.8 (>39); POTASSIUM SERUM 3.6 MEQ/L (3.5-5.1)
[2018-11-18 10:13] LABS: CREATININE,RANDOM URINE 97.9 MG/DL
== END ==
LOC: M LAB 08:58
PROVIDERS: ATTEND Pediatrics Pediatric Nephrology
DX: Z94.0 Kidney transplant status (principal)

== ENCOUNTER → 2018-11-25 | Outpatient (REF) | payer MEDICARE ==
[2018-11-25 13:55] LABS: INR 0.98; PROTHROMBIN TIME 12.7 SECONDS (11.8-14.0)
== END ==
LOC: M LAB REF 12:52
PROVIDERS: ATTEND Internal Medicine Nephrology
DX: I82.501 Chronic embolism and thrombosis of unspecified deep veins of right lower extremity (principal); Z79.01 Long term (current) use of anticoagulants

== ENCOUNTER → 2018-12-16 | Outpatient (REF) | payer MEDICARE | LOC: M LAB REF 17:12 | PROVIDERS: ATTEND Internal Medicine Nephrology | DX: N39.0 Urinary tract infection, site not specified (principal) ==

== ENCOUNTER 2018-12-22 10:32 | Emergency (ER) | payer MEDICARE ==
[2018-12-22 12:01] LABS: BASO % 0.5 % (0.0-1.0); EOS # 0.2 10^3/uL (0.0-0.5); HEMATOCRIT 39.1 % (36.0-47.0); HEMOGLOBIN 12.4 g/dl (12.0-15.5); LYMPH # 1.7 10^3/uL (1.5-5.0); LYMPH % 20.1 % (24.0-44.0); MEAN CORPUSCULAR HEMOGLOBIN 32.1 pg (27.0-33.0); MEAN CORPUSCULAR HGB CONC 31.7 g/dl (32.0-36.5); MEAN CORPUSCULAR VOLUME 101.3 fl (80.0-96.0); MONO # 0.8 10^3/uL (0.0-0.8); MONO % 9.2 % (0.0-5.0); NEUTROPHILS # 5.8 10^3/uL (1.5-8.5); NEUTROPHILS % 67.8 % (36.0-66.0); PLATELET COUNT, AUTOMATED 265 10^3/uL (150-450); RED BLOOD COUNT 3.86 10^6/uL (4.00-5.40); WHITE BLOOD COUNT 8.5 10^3/uL (4.0-10.0)
[2018-12-22 12:11] LABS: INR 0.99; PROTHROMBIN TIME 12.8 SECONDS (11.8-14.0)
[2018-12-22 12:12] LABS: PARTIAL THROMBOPLASTIN TIME 32.2 SECONDS (25.0-38.4)
[2018-12-22 12:22] LABS: ALBUMIN 3.3 GM/DL (3.2-5.2); ALT/SGPT 15 U/L (12-78); AMYLASE 47 U/L (25-115); BILIRUBIN,DIRECT 0.3 MG/DL (0.0-0.2); BILIRUBIN,TOTAL 0.8 MG/DL (0.2-1.0); CK-MB VALUE MASS 1.2 NG/ML (<3.6); CPK CREATINE PHOSPHOKINASE 108 U/L (26-192); ETHYL ALCOHOL (ETHANOL) < 0.003 % (0.000-0.010); LIPASE 273 U/L (73-393); MB/CK RELATIVE INDEX 1.11 (< OR =4); TROPONIN I < 0.02 NG/ML (< 0.10)
--- NOTE | 2018-12-22 12:24 | REP ---
Clinical: Trauma . Comparison: 09/09/2018 . Findings: The mediastinum and cardiac silhouette are stable and within normal limits for portable technique. The lung [place] are clear without acute consolidation, effusion, or pneumothorax. Skeletal structures are intact. Vascular stent in the left upper extremity. Impression: No acute cardiopulmonary process appreciated. Electronically Signed by Monty Beebe MD 12/22/2018 12:16 P
[2018-12-22 12:28] VITALS: BP 166/90
== END 2018-12-22 12:30 | disposition short-term general hospital (02) ==
LOC: M ED 10:32
DX: S06.5X0A Traumatic subdural hemorrhage without loss of consciousness, initial encounter (principal); W19.XXXA Unspecified fall, initial encounter; Y92.89 Other specified places as the place of occurrence of the external cause; Y93.89 Activity, other specified; Y99.8 Other external cause status; G45.8 Other transient cerebral ischemic attacks and related syndromes; I10 Essential (primary) hypertension; Z79.890 Hormone replacement therapy; Z79.899 Other long term (current) drug therapy; Z94.0 Kidney transplant status; Z88.5 Allergy status to narcotic agent
CPT/HCPCS: 70450; 71045; 80047; 80076; 82150; 82550; 82553; 83605; 83690; 84484; 85025; 85610; 85730; 86850; 86900; 86901; 93041; 94760; 99285; G0480

== ENCOUNTER → 2018-12-22 | Outpatient (CLI) | payer MEDICARE ==
--- NOTE | 2018-12-22 09:27 | REP ---
CT brain: 12/22/2018. Indication: Stroke. Comparison: 10/03/2014. Technique: Unenhanced axial images of the brain were obtained from skull base to vertex. Findings: There is a heterogeneously dense/complex left frontoparietal subdural hemorrhage that measures 2.6 cm in greatest depth with mass effect on the adjacent left frontal parietal lobes without significant shift of the midline structures. Tiny subacute appearing right frontal region subdural hemorrhage is additionally noted. There is no hydrocephalus. Chronic basal ganglia lacunar infarctions and diffuse volume loss are present. Patchy areas of hypoattenuation scattered throughout the cerebral hemisphere white matter. Impression: Complex left greater than right subdural hemorrhages with mass effect as described. No significant shift of midline structures or trapping of the ventricles. The above findings were conveyed to Dr. Watts at the time of interpretation. Electronically Signed by Bran Mcallister DO 12/22/2018 09:26 A
== END ==
LOC: M RAD 08:47
PROVIDERS: ATTEND Internal Medicine Nephrology
DX: G45.8 Other transient cerebral ischemic attacks and related syndromes (principal)

== ENCOUNTER → 2018-12-29 | Outpatient (REF) | payer MEDICARE | LOC: M LAB REF 13:20 | PROVIDERS: ATTEND Internal Medicine Nephrology | DX: Z48.22 Encounter for aftercare following kidney transplant (principal); Z94.0 Kidney transplant status ==

== ENCOUNTER → 2019-01-21 | Outpatient (CLI) | payer MEDICARE ==
[2019-01-21 11:27] LABS: BASO # 0.1 10^3/uL (0.0-0.2); BASO % 0.7 % (0.0-1.0); EOS # 0.3 10^3/uL (0.0-0.5); HEMATOCRIT 39.7 % (36.0-47.0); HEMOGLOBIN 12.2 g/dl (12.0-15.5); LYMPH # 2.3 10^3/uL (1.5-5.0); LYMPH % 25.6 % (24.0-44.0); MEAN CORPUSCULAR HEMOGLOBIN 31.5 pg (27.0-33.0); MEAN CORPUSCULAR HGB CONC 30.7 g/dl (32.0-36.5); MEAN CORPUSCULAR VOLUME 102.6 fl (80.0-96.0); MONO # 0.7 10^3/uL (0.0-0.8); NEUTROPHILS # 5.6 10^3/uL (1.5-8.5); NEUTROPHILS % 62.4 % (36.0-66.0); PLATELET COUNT, AUTOMATED 243 10^3/uL (150-450); RED BLOOD COUNT 3.87 10^6/uL (4.00-5.40)
[2019-01-21 11:30] LABS: APPEARANCE, URINE HAZY (CLEAR); BACTERIA, URINE AUTO 1+ (NEGATIVE); BILIRUBIN, URINE AUTO NEGATIVE (NEGATIVE); BLOOD, URINE BLOOD 1+ (NEGATIVE); COLOR, URINE YELLOW (YELLOW); GLUCOSE, URINE (UA) AUTO NEGATIVE (NEGATIVE); KETONE, URINE AUTO NEGATIVE (NEGATIVE); LEUKOCYTE ESTERASE, URINE AUTO 3+ (NEGATIVE); MUCUS, URINE SMALL (NEGATIVE); NITRITE, URINE AUTO POSITIVE (NEGATIVE); PROTEIN, URINE AUTO NEGATIVE (NEGATIVE); RBC, URINE AUTO 3 /HPF (0-3); SPECIFIC GRAVITY URINE AUTO 1.008 (1.002-1.035); SQUAMOUS EPITHELIAL CELL UR AU 0 /HPF (0-6); UROBILINOGEN, URINE AUTO 0.2 mg/dL (0.0-2.0); WBC, URINE AUTO 106 /HPF (0-3)
[2019-01-21 11:56] LABS: ALBUMIN 3.7 GM/DL (3.2-5.2); CALCIUM LEVEL 10.2 MG/DL (8.8-10.2); CREATININE FOR GFR 2.04 MG/DL (0.55-1.30); CREATININE,RANDOM URINE 22.7 MG/DL; GLOMERULAR FILTRATION RATE 25.4 (>39); MAGNESIUM LEVEL 2.1 MG/DL (1.8-2.4); PHOSPHORUS LEVEL 3.8 MG/DL (2.5-4.9); TOTAL PROTEIN,RANDOM URINE 6.3 MG/DL (0.0-12.0)
== END ==
LOC: M LAB 10:50 → EEVIPCON 10:50
PROVIDERS: ATTEND Pediatrics Pediatric Nephrology
DX: Z94.0 Kidney transplant status (principal); N18.5 Chronic kidney disease, stage 5; D84.9 Immunodeficiency, unspecified; Z79.899 Other long term (current) drug therapy

== ENCOUNTER → 2019-01-29 | Outpatient (REF) | payer MEDICARE ==
[~2019-01-29] MED LIST changes: +OMEP-172 PO; -OMEP20CA4 PO
== END ==
LOC: M LAB REF 13:32
PROVIDERS: ATTEND Internal Medicine Nephrology
DX: N39.0 Urinary tract infection, site not specified (principal)

== ENCOUNTER 2019-02-03 15:54 | Outpatient (CLI) | payer MEDICARE ==
[~2019-02-03] VITALS: Ht 165.1 cm; Wt 74.1 kg
[2019-02-03 16:00] VITALS: BP 153/77
[2019-02-03] MEDS ORDERED: ERTAPENEM SODIUM 0.5 GM in NS 50 ML IV ONE (17:00)
[2019-02-03 17:40] VITALS: BP 148/70
== END 2019-02-03 17:40 | disposition home or self-care (01) ==
LOC: M INFU 15:54
PROVIDERS: ATTEND Internal Medicine Nephrology
DX: N39.0 Urinary tract infection, site not specified (principal); Z88.5 Allergy status to narcotic agent
CPT/HCPCS: 96365; J1335

== ENCOUNTER 2019-02-04 07:12 | Outpatient (CLI) | payer MEDICARE ==
[~2019-02-04] VITALS: Ht 170.2 cm; Wt 74.5 kg
[2019-02-04 07:15] VITALS: BP 144/68
[2019-02-04] MEDS ORDERED: ERTAPENEM SODIUM 0.5 GM in NS 50 ML IV ONE (07:30)
[2019-02-04 08:30] VITALS: BP 147/72
== END 2019-02-04 08:45 | disposition home or self-care (01) ==
LOC: M INFU 07:12
PROVIDERS: ATTEND Internal Medicine Nephrology
DX: N39.0 Urinary tract infection, site not specified (principal); Z88.5 Allergy status to narcotic agent
CPT/HCPCS: 96365; J1335

== ENCOUNTER 2019-02-05 13:54 | Outpatient (CLI) | payer MEDICARE ==
[~2019-02-05] VITALS: Ht 170.2 cm; Wt 74.5 kg
[2019-02-05 14:00] VITALS: BP 156/80
[2019-02-05 15:00] VITALS: BP 161/82
[2019-02-05] MEDS ORDERED: ERTAPENEM SODIUM 0.5 GM in NS 50 ML IV ONE (15:00)
== END 2019-02-05 15:10 | disposition home or self-care (01) ==
LOC: M INFU 13:54
PROVIDERS: ATTEND Internal Medicine Nephrology
DX: N39.0 Urinary tract infection, site not specified (principal); Z88.5 Allergy status to narcotic agent
CPT/HCPCS: 96365; J1335

== ENCOUNTER 2019-02-06 09:44 | Outpatient (CLI) | payer MEDICARE ==
[~2019-02-06] VITALS: Ht 170.2 cm; Wt 74.5 kg
[2019-02-06 10:00] VITALS: BP 161/71
[2019-02-06] MEDS ORDERED: ERTAPENEM SODIUM 0.5 GM in NS 50 ML IV ONE (10:30)
[2019-02-06 11:15] VITALS: BP 158/76
== END 2019-02-06 11:15 | disposition home or self-care (01) ==
LOC: M INFU 09:44
PROVIDERS: ATTEND Internal Medicine Nephrology
DX: N39.0 Urinary tract infection, site not specified (principal); B96.20 Unspecified Escherichia coli [E. coli] as the cause of diseases classified elsewhere
CPT/HCPCS: 96365; J1335

== ENCOUNTER 2019-02-07 09:03 | Outpatient (CLI) | payer MEDICARE ==
[~2019-02-07] VITALS: Ht 170.2 cm; Wt 74.5 kg
[2019-02-07 09:20] VITALS: BP 132/76
[2019-02-07] MEDS ORDERED: ERTAPENEM SODIUM 0.5 GM in NS 50 ML IV ONE (10:30)
[2019-02-07 11:55] VITALS: BP 134/78
== END 2019-02-07 12:00 | disposition home or self-care (01) ==
LOC: M OPCLI5PR 09:03 → M INFU 09:03 → M MS5PR 09:07 → M INFU 12:00
PROVIDERS: ATTEND Internal Medicine Nephrology
DX: N39.0 Urinary tract infection, site not specified (principal); Z88.5 Allergy status to narcotic agent
CPT/HCPCS: 96374; J1335

== ENCOUNTER 2019-02-08 09:12 | Outpatient (CLI) | payer MEDICARE ==
[~2019-02-08] VITALS: Ht 170.2 cm; Wt 74.5 kg
[2019-02-08 09:30] VITALS: BP 136/70
[2019-02-08] MEDS ORDERED: ERTAPENEM SODIUM 0.5 GM in NS 50 ML IV ONE (10:00)
== END 2019-02-08 11:15 | disposition home or self-care (01) ==
LOC: M OPCLI5PR 09:12 → M MS5PR 09:14 → M OPCLI5PR 11:15
PROVIDERS: ATTEND Internal Medicine Nephrology
DX: N39.0 Urinary tract infection, site not specified (principal); Z88.5 Allergy status to narcotic agent
CPT/HCPCS: 96374; J1335

== ENCOUNTER → 2019-02-09 | Outpatient (CLI) | payer MEDICARE ==
[~2019-02-09] VITALS: Ht 170.2 cm; Wt 74.5 kg
[~2019-02-09] MED LIST changes: +ERTAPENEM SODIUM 0.5 GM in NS 50 ML IV ONE
[2019-02-09 08:30] VITALS: BP 141/64
[2019-02-09 09:30] VITALS: BP 152/70
== END ==
LOC: M INFU 08:15
PROVIDERS: ATTEND Internal Medicine Nephrology
DX: N39.0 Urinary tract infection, site not specified (principal); Z88.5 Allergy status to narcotic agent
CPT/HCPCS: 96365; J1335

== ENCOUNTER → 2019-02-20 | Outpatient (CLI) | payer MEDICARE ==
[~2019-02-20] MED LIST changes: -ERTAPENEM SODIUM 0.5 GM in NS 50 ML IV ONE
--- NOTE | 2019-02-20 14:35 | REPVR ---
PROCEDURE INFORMATION: Exam: CT Head Without Contrast Exam date and time: 02/20/2019 2:13 PM Age: 73 years old Clinical indication: Pain; Headache; Additional info: Subdural hematoma TECHNIQUE: Imaging protocol: Computed tomography of the head without contrast. Radiation optimization: All CT scans at this facility use at least one of these dose optimization techniques: automated exposure control; mA and/or kV adjustment per patient size (includes targeted exams where dose is matched to clinical indication); or iterative reconstruction. COMPARISON: CT Head without contrast 12/22/2018 9:05 AM FINDINGS: Brain: Examination reveals significant interval decrease in the size of the chronic extra-axial subdural hematoma in the left frontoparietal convexity measuring 7 mm in maximum thickness and previously measuring 1.4 cm. No significant mass effect or midline shift is seen. No acute infarction, masses or hemorrhage is seen. No acute intracranial abnormality is identified. There is mild ill-defined patchy hypodensity within the bilateral cerebral periventricular white matter, consistent with chronic microvascular ischemic changes. There are bifrontal extra-axial hypodense chronic CSF hygromas. There is mild diffuse cerebral atrophy present, consistent with this patient's age. Examination of the posterior fossa demonstrates no significant abnormality. Ventricles: The ventricular system demonstrates mild diffuse compensatory enlargement. Bones/joints: Mcleod hole is seen in the left parietal bone. Sinuses: Visualized sinuses are unremarkable. No fluid levels. Mastoid air cells: Visualized mastoid air cells are well aerated. Soft tissues: Unremarkable. Vasculature: There is atherosclerotic calcification of the bilateral cavernous carotid arteries. IMPRESSION: 1. Examination reveals significant interval decrease in the size of the chronic extra-axial subdural hematoma in the left frontoparietal convexity measuring 7 mm in maximum thickness and previously measuring 1.4 cm. No significant mass effect or midline shift is seen. 2. No acute infarction, masses or hemorrhage is seen. No acute intracranial abnormality is identified. Electronically signed by: Blayne Solomon On 02/20/2019 14:35:24 PM
== END ==
LOC: M RAD 14:04
PROVIDERS: ATTEND Neurological Surgery
DX: I62.00 Nontraumatic subdural hemorrhage, unspecified (principal)

== ENCOUNTER → 2019-04-07 | Outpatient (REF) | payer MEDICARE ==
[~2019-04-07] MED LIST changes: -OMEP-172 PO; +OMEP1CAP73 PO; -OXYB10TA2 PO; +OXYB10TA23 PO
[2019-04-07 14:00] LABS: FREE T4 1.07 NG/DL (0.76-1.46); THYROID STIMULATING HORMONE 1.53 uIU/ML (0.358-3.740)
== END ==
LOC: M LAB REF 13:19
PROVIDERS: ATTEND Internal Medicine Nephrology
DX: Z48.22 Encounter for aftercare following kidney transplant (principal); Z94.0 Kidney transplant status; E03.9 Hypothyroidism, unspecified

== ENCOUNTER → 2019-07-25 | Outpatient (CLI) | payer MEDICARE ==
[~2019-07-25] MED LIST changes: -COUM6TAB PO; +COUM6TAB10 PO; +HM V4000 PO; +OCUV1CAP4 PO; +OMEG1CAP16 PO; +PANT40TA3 PO; +VITA200016 PO
== END ==
LOC: M LABSMTC 08:45
PROVIDERS: ATTEND Anesthesiology
DX: Z01.818 Encounter for other preprocedural examination (principal); Z11.59 Encounter for screening for other viral diseases
CPT/HCPCS: C9803; U0003

== ENCOUNTER 2019-07-28 08:01 | Day surgery (SDC) | payer MEDICARE ==
[~2019-07-28] VITALS: Ht 167.6 cm; Wt 77.1 kg
[2019-07-28] MEDS: NS 1,000 ML IV SCH ×2 (08:34→08:35)
[2019-07-28] MEDS ORDERED: LIDOCAINE 2% 100MG/5ML SDV (FOR ANES.) As Ordered ONE (09:22)
[2019-07-28] MEDS ORDERED: fentaNYL 100 MCG/2 ML INJECTION (J3010) As Ordered ONE (09:22)
[2019-07-28] MEDS ORDERED: propofoL 200 MG/20 ML VIAL As Ordered ONE (09:22)
--- NOTE | 2019-07-28 10:24 | ROOR ---
Patient Name: Elenita Slaughter Procedure Date: 07/28/2019 9:15 AM Date of : 1945 Age: 73 Room: [facility] Gender: Female Note Status: Finalized Procedure: Upper GI endoscopy Indications: Surveillance for malignancy due to personal history of Block's esophagus Providers: Elijah Gutierrez MD Referring MD: Mikala Watts MD Requesting Provider: Medicines: Monitored Anesthesia Care Complications: No immediate complications. Procedure: Pre-Anesthesia Assessment: - Prior to the procedure, a History and Physical was performed, and patient medications and allergies were reviewed. The patient is competent. The risks and benefits of the procedure and the sedation options and risks were discussed with the patient. All questions were answered and informed consent was obtained. Patient identification and proposed procedure were verified by the physician, the nurse and the anesthesiologist in the procedure room. Mental Status Examination: alert and oriented. Airway Examination: normal oropharyngeal airway and neck mobility. Respiratory Examination: clear to auscultation. CV Examination: normal. Prophylactic Antibiotics: The patient does not require prophylactic antibiotics. Prior Anticoagulants: The patient has taken no previous anticoagulant or antiplatelet agents. ASA Grade Assessment: III - A patient with severe systemic disease. After reviewing the risks and benefits, the patient was deemed in satisfactory condition to undergo the procedure. The anesthesia plan was to use monitored anesthesia care (MAC). Immediately prior to administration of medications, the patient was re-assessed for adequacy to receive sedatives. The heart rate, respiratory rate, oxygen saturations, blood pressure, adequacy of pulmonary ventilation, and response to care were monitored throughout the procedure. The physical status of the patient was re-assessed after the procedure. The Endoscope was introduced through the mouth, and advanced to the second part of duodenum. The upper GI endoscopy was accomplished without difficulty. The patient tolerated the procedure well. Findings: A small hiatal hernia was present. The Z-line was irregular and was found in the distal esophagus. Mucosa was biopsied with a cold forceps for histology. One specimen bottle was sent to pathology. Patchy granular mucosa was found in the cardia. Biopsies were taken with a cold forceps for histology. Two biopsies were obtained in the gastric antrum with cold forceps for Helicobacter pylori testing. Verification of patient identification for the specimen was done by the physician and nurse using the patient's name, date and medical record number. The duodenal bulb and second portion of the duodenum were normal. Impression: - Small hiatal hernia. - Z-line irregular, in the distal esophagus. Biopsied. - Granular gastric mucosa. Biopsied. - Normal duodenal bulb and second portion of the duodenum. - Two biopsies were obtained in the gastric antrum. Recommendation: - Patient has a contact number available for emergencies. The signs and symptoms of potential delayed complications were discussed with the patient. Return to normal activities tomorrow. Written discharge instructions were provided to the patient. - High fiber diet. - Continue present medications. - Follow an antireflux regimen. - Await pathology results. - Repeat upper endoscopy to check healing and for surveillance based on pathology results. - Telephone GI clinic for pathology results in 2 weeks. - Return to primary care physician. Elijah Gutierrez MD Elijah Gutierrez MD 07/28/2019 10:24:24 AM Electronically signed by Elijah Gutierrez MD Number of Addenda: 0 Note Initiated On: 07/28/2019 9:15 AM Estimated Blood Loss: Estimated blood loss was minimal.
--- NOTE | 2019-07-28 10:28 | ROOR ---
Patient Name: Elenita Slaughter Procedure Date: 07/28/2019 9:16 AM Date of : 1945 Age: 73 Room: [facility] Gender: Female Note Status: Finalized Procedure: Colonoscopy Indications: High risk colon cancer surveillance: Personal history of colonic polyps Providers: Elijah Gutierrez MD Referring MD: Mikala Watts MD Requesting Provider: Medicines: Monitored Anesthesia Care Complications: No immediate complications. Procedure: Pre-Anesthesia Assessment: - Prior to the procedure, a History and Physical was performed, and patient medications and allergies were reviewed. The patient is competent. The risks and benefits of the procedure and the sedation options and risks were discussed with the patient. All questions were answered and informed consent was obtained. Patient identification and proposed procedure were verified by the physician, the nurse and the anesthesiologist in the procedure room. Mental Status Examination: alert and oriented. Airway Examination: normal oropharyngeal airway and neck mobility. Respiratory Examination: clear to auscultation. CV Examination: normal. Prophylactic Antibiotics: The patient does not require prophylactic antibiotics. Prior Anticoagulants: The patient has taken no previous anticoagulant or antiplatelet agents. ASA Grade Assessment: III - A patient with severe systemic disease. After reviewing the risks and benefits, the patient was deemed in satisfactory condition to undergo the procedure. The anesthesia plan was to use monitored anesthesia care (MAC). Immediately prior to administration of medications, the patient was re-assessed for adequacy to receive sedatives. The heart rate, respiratory rate, oxygen saturations, blood pressure, adequacy of pulmonary ventilation, and response to care were monitored throughout the procedure. The physical status of the patient was re-assessed after the procedure. The Colonoscope was introduced through the anus and advanced to the terminal ileum, with identification of the appendiceal orifice and IC valve. The colonoscopy was performed without difficulty. The patient tolerated the procedure well. The quality of the bowel preparation was good. The terminal ileum, ileocecal valve, appendiceal orifice, and rectum were photographed. Scope insertion time was 6 minutes. Scope withdrawal time was 9 minutes. The total duration of the procedure was 15 minutes. Findings: The perianal and digital rectal examinations were normal. The terminal ileum appeared normal. Two sessile polyps were found in the transverse colon. The polyps were 3 to 5 mm in size. These polyps were removed with a cold biopsy forceps. Resection and retrieval were complete. Verification of patient identification for the specimen was done by the physician and nurse using the patient's name, date and medical record number. Estimated blood loss was minimal. The left colon was moderately tortuous. Advancing the scope required applying abdominal pressure. Multiple small-mouthed diverticula were found from sigmoid to descending colon. There was no evidence of diverticular bleeding. Non-bleeding external and internal hemorrhoids were found during retroflexion. The hemorrhoids were medium-sized. Impression: - The examined portion of the ileum was normal. - Two 3 to 5 mm polyps in the transverse colon, removed with a cold biopsy forceps. Resected and retrieved. - Tortuous colon. - Moderate diverticulosis from sigmoid to descending colon. There was no evidence of diverticular bleeding. - Non-bleeding external and internal hemorrhoids. Recommendation: - Patient has a contact number available for emergencies. The signs and symptoms of potential delayed complications were discussed with the patient. Return to normal activities tomorrow. Written discharge instructions were provided to the patient. - High fiber diet. - Continue present medications. - Await pathology results. - Repeat colonoscopy in 5-10 years for surveillance based on pathology results. - Telephone GI clinic for pathology results in 2 weeks. - Return to primary care physician. Elijah Gutierrez MD Elijah Gutierrez MD 07/28/2019 10:27:49 AM Electronically signed by Elijah Gutierrez MD Number of Addenda: 0 Note Initiated On: 07/28/2019 9:16 AM Estimated Blood Loss: Estimated blood loss was minimal.
[2019-07-28 10:30] VITALS: BP 142/63
== END 2019-07-28 10:43 | disposition home or self-care (01) ==
LOC: M OPP 08:01
PROVIDERS: ATTEND Internal Medicine Gastroenterology
DX: D12.3 Benign neoplasm of transverse colon (principal); Q43.8 Other specified congenital malformations of intestine; K64.8 Other hemorrhoids; K44.9 Diaphragmatic hernia without obstruction or gangrene; K22.8 Other specified diseases of esophagus; K31.89 Other diseases of stomach and duodenum; K22.70 Barrett's esophagus without dysplasia; Z79.899 Other long term (current) drug therapy; Z88.5 Allergy status to narcotic agent
CPT/HCPCS: 43239; 45380; 88305; 88313; J3010

== ENCOUNTER → 2019-10-16 | Outpatient (REF) | payer MEDICARE ==
[~2019-10-16] MED LIST changes: -ASPI81TA85 PO; +ASPI81TA86 PO; +PANT40TA29 PO; -PANT40TA3 PO
[2019-10-16 20:05] LABS: FREE T4 1.2 NG/DL (0.76-1.46); THYROID STIMULATING HORMONE 1.63 uIU/ML (0.358-3.740)
== END ==
LOC: M LAB REF 17:31
PROVIDERS: ATTEND Internal Medicine Nephrology
DX: E03.9 Hypothyroidism, unspecified (principal); N39.0 Urinary tract infection, site not specified; Z48.22 Encounter for aftercare following kidney transplant; Z94.0 Kidney transplant status

== ENCOUNTER → 2019-11-27 | Outpatient (CLI) | payer MEDICARE ==
--- NOTE | 2019-11-27 12:11 | REPMRS ---
Patient History The patient states she had a clinical breast exam in 11/2019. Family history of breast cancer under age 50 in maternal aunt, colorectal cancer under age 50 in maternal uncle, breast cancer in maternal cousin. No Hormone Replacement Therapy 3D TOMOSYNTHESIS WAS PERFORMED. The Yimi Riddle lifetime risk for breast cancer is 5.1%. DIANE Carlson Digital Woman Screen Mammo: November 27, 2019 - Exam #: [id number] Bilateral CC and MLO view(s) were taken. Technologist: Nicole Nielsen, Technologist Prior study comparison: March 11, 2018, bilateral digital woman screen mammo performed at [facility]. March 27, 2017, digital woman screen mammo performed at [facility]. FINDINGS: The breast tissue is heterogeneously dense. This may lower the sensitivity of mammography. There has been no change in the appearance of the mammogram from the prior studies. There is a moderate amount of residual fibroglandular tissue which is fairly symmetric. There is no interval development of dominant mass, areas of architectural distortion, or clustered microcalcification typical of malignancy. Assessment: BI-RADS/ACR category 1 mammogram. Negative Mammogram. Recommendation Routine screening mammogram in 1 year (for women over age 40). This mammogram was interpreted with the aid of an FDA-approved computer-aided dectection system. Electronically Signed By: Narinder Garcia MD 11/27/19 2710
== END ==
LOC: M WHC 10:48
PROVIDERS: ATTEND Nurse Practitioner Women's Health
DX: Z01.419 Encounter for gynecological examination (general) (routine) without abnormal findings (principal); Z12.31 Encounter for screening mammogram for malignant neoplasm of breast
CPT/HCPCS: 77063; 77067; G0101

== ENCOUNTER → 2019-11-30 | Outpatient (CLI) | payer MEDICARE ==
[2019-11-30 08:38] LABS: BASO % 0.5 % (0.0-1.0); EOS # 0.3 10^3/uL (0.0-0.5); EOS % 3.1 % (0.0-3.0); HEMATOCRIT 39.4 % (36.0-47.0); HEMOGLOBIN 12.2 g/dl (12.0-15.5); LYMPH # 2.6 10^3/uL (1.5-5.0); LYMPH % 31.4 % (24.0-44.0); MEAN CORPUSCULAR VOLUME 100.3 fl (80.0-96.0); MONO # 0.8 10^3/uL (0.0-0.8); MONO % 10.1 % (0.0-5.0); NEUTROPHILS # 4.4 10^3/uL (1.5-8.5); NEUTROPHILS % 54.4 % (36.0-66.0); PLATELET COUNT, AUTOMATED 224 10^3/uL (150-450); RED BLOOD COUNT 3.93 10^6/uL (4.00-5.40); WHITE BLOOD COUNT 8.1 10^3/uL (4.0-10.0)
[2019-11-30 08:40] LABS: APPEARANCE, URINE CLEAR (CLEAR); BACTERIA, URINE AUTO NEGATIVE (NEGATIVE); BILIRUBIN, URINE AUTO NEGATIVE (NEGATIVE); BLOOD, URINE BLOOD NEGATIVE (NEGATIVE); COLOR, URINE YELLOW (YELLOW); GLUCOSE, URINE (UA) AUTO NEGATIVE (NEGATIVE); KETONE, URINE AUTO NEGATIVE (NEGATIVE); LEUKOCYTE ESTERASE, URINE AUTO NEGATIVE (NEGATIVE); NITRITE, URINE AUTO NEGATIVE (NEGATIVE); PROTEIN, URINE AUTO NEGATIVE (NEGATIVE); RBC, URINE AUTO 1 /HPF (0-3); SPECIFIC GRAVITY URINE AUTO 1.015 (1.002-1.035); SQUAMOUS EPITHELIAL CELL UR AU 1 /HPF (0-6); UROBILINOGEN, URINE AUTO 0.2 mg/dL (0.0-2.0); WBC, URINE AUTO 4 /HPF (0-3)
[2019-11-30 09:00] LABS: CREATININE,RANDOM URINE 72.8 MG/DL; TOTAL PROTEIN,RANDOM URINE 13.5 MG/DL (0.0-12.0)
[2019-11-30 09:03] LABS: ALBUMIN 3.5 GM/DL (3.2-5.2); BILIRUBIN,DIRECT 0.2 MG/DL (0.0-0.2); BILIRUBIN,TOTAL 0.7 MG/DL (0.2-1.0); CALCIUM LEVEL 8.9 MG/DL (8.8-10.2); CREATININE FOR GFR 1.7 MG/DL (0.55-1.30); GLOMERULAR FILTRATION RATE 31.4 (>39); MAGNESIUM LEVEL 2.3 MG/DL (1.8-2.4); PHOSPHORUS LEVEL 3.4 MG/DL (2.5-4.9); POTASSIUM SERUM 4.7 MEQ/L (3.5-5.1)
== END ==
LOC: M LAB 07:57
PROVIDERS: ATTEND Pediatrics Pediatric Nephrology
DX: N18.5 Chronic kidney disease, stage 5 (principal); D84.9 Immunodeficiency, unspecified; Z79.899 Other long term (current) drug therapy; Z94.0 Kidney transplant status

== ENCOUNTER → 2019-12-25 | Outpatient (CLI) | payer MEDICARE ==
--- NOTE | 2019-12-25 10:42 | REP ---
INDICATION: HEADACHE UNSPECIFIED---ALSO HAS AN X-RAY. COMPARISON: Comparison CT study February 20, 2019 and October 03, 2014.. TECHNIQUE: Helical scanning is acquired. 5 mm axial images were reformatted. Coronal MPR images were generated. FINDINGS: Bone window settings demonstrate an intact bony calvarium. There is no evidence of skull fracture or incidental bony calvarial lesion. There are mucosal changes in the maxillary sinuses bilaterally. The visualized paranasal sinuses appear otherwise clear. No intraorbital abnormality is seen. On soft tissue window setting images; the lateral, third, and fourth ventricles are normal in size and position. Garcia-white differentiation pattern is normal above and below the tentorium. There are is no evidence of intracranial hemorrhage. No mass, edema, infarction, or midline shift is seen. No extra-axial fluid collection is appreciated. There is mild generalized volume loss. There is small vessel atherosclerotic changes. Vascular calcification is noted in the distal vertebral and internal carotid arteries bilaterally. These findings are unchanged. IMPRESSION: Bilateral maxillary sinus mucosal changes. Generalized volume loss and vascular calcification. Small vessel changes. Stable CT findings from 02/20/2019. No acute intracranial abnormality.. <Electronically signed by Bjorn Ellsworth > 12/25/19 [id number]
--- NOTE | 2019-12-25 12:08 | REP ---
INDICATION: PAIN IN LEFT ELBOW -- ALSO HAS CT. COMPARISON: None. FINDINGS: Soft tissue calcifications and surgical clips are seen in the medial soft tissues. Two limited views show no evidence of an acute fracture or destructive osseous lesion. There is evidence of a joint effusion. IMPRESSION: There is a joint effusion the etiology of which is uncertain. This could be secondary to a radial head fracture, however, 2 limited views were obtained. <Electronically signed by Roland Ramos > 12/25/19 [id number]
== END ==
LOC: M RAD 09:53
PROVIDERS: ATTEND Internal Medicine Nephrology
DX: M25.422 Effusion, left elbow (principal); R51.9 Headache, unspecified; M25.522 Pain in left elbow

== ENCOUNTER → 2020-01-26 | Outpatient (CLI) | payer MEDICARE ==
[2020-01-26 09:37] LABS: PLATELET COUNT, AUTOMATED 219 10^3/uL (150-450)
[2020-01-26 09:47] LABS: COLLAGEN EPINEPHRINE 91 SECONDS (74-162)
[2020-01-26 09:50] LABS: INR 0.87; PARTIAL THROMBOPLASTIN TIME 31.7 SECONDS (24.2-38.5)
== END ==
LOC: M LAB 08:55
PROVIDERS: ATTEND Physician Assistant
DX: M47.817 Spondylosis without myelopathy or radiculopathy, lumbosacral region (principal)

== ENCOUNTER → 2020-02-03 | Outpatient (CLI) | payer MEDICARE | LOC: M LABSMTC 10:28 | PROVIDERS: ATTEND Physical Medicine & Rehabilitation | DX: Z01.812 Encounter for preprocedural laboratory examination (principal); Z20.828 Contact with and (suspected) exposure to other viral communicable diseases ==

== ENCOUNTER → 2020-03-18 | Outpatient (REF) | payer MEDICARE ==
[2020-03-18 19:07] LABS: FREE T4 0.98 NG/DL (0.76-1.46); THYROID STIMULATING HORMONE 1.33 uIU/ML (0.358-3.740)
== END ==
LOC: M LAB REF 17:12
PROVIDERS: ATTEND Internal Medicine Nephrology
DX: Z48.22 Encounter for aftercare following kidney transplant (principal); Z94.0 Kidney transplant status; E03.9 Hypothyroidism, unspecified

== ENCOUNTER → 2020-04-05 | Outpatient (CLI) | payer MEDICARE ==
--- NOTE | 2020-04-05 11:57 | REP ---
INDICATION: KIDNEY TRANSPLANT STATUS CALCUS OF KIDNEY COMPARISON: Comparison CT study abdomen pelvis Jul 18 2017.. TECHNIQUE: Helical scanning is acquired in 4 mm axial images were reformatted. Coronal and sagittal MPR images were generated and reviewed. FINDINGS: Preliminary digital shaping machine tender radiograph shows surgical clips in the right abdomen with right pelvic calcifications. On axial CT images, the lung bases are essentially clear. Mild linear fibrosis in the left base. Numerous small cysts and scattered areas of a parenchymal calcification are again noted in the liver unchanged from comparison CT study. No focal liver mass lesion is appreciated. The spleen is normal in size homogeneous in texture. There is extensive vascular calcification throughout the abdomen. [place] kidneys are profoundly atrophic barely visible unchanged. No abnormality is noted in the pancreas. The gallbladder is surgically absent. No retroperitoneal mass or adenopathy is seen. 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 A left iliac fossa renal transplant is seen without evidence of hydronephrosis, mass, or intrarenal calculus. Sagittal images demonstrate a transplant renal length of 11.1 cm, previously 11.6. There are degenerative spondylosis changes in the lumbar spine with a degenerative grade 1 spondylolisthesis at L3-4 and another at L4-5 unchanged. The appendix is surgically absent. Small and large bowel loops are unremarkable in the abdomen and pelvis. There are postoperative changes in the lower anterior abdominal wall. No uterine or adnexal abnormality. There is minimal diverticulosis of the sigmoid colon without evidence of diverticulitis. IMPRESSION: Transplant kidney in the left iliac fossa shows no evidence of hydronephrosis or calculus. Findings essentially unchanged from the July 18, 2017 prior study. No acute abdominal or pelvic abnormality. <Electronically signed by Bjorn Ellsworth > 04/05/20 [id number]
== END ==
LOC: M RAD 11:11
PROVIDERS: ATTEND Internal Medicine Nephrology
DX: Z94.0 Kidney transplant status (principal); N20.0 Calculus of kidney

== ENCOUNTER → 2020-06-21 | Outpatient (REF) | payer MEDICARE ==
[~2020-06-21] MED LIST changes: +ASPI-569 PO; -ASPI81TAEC PO; -VITA250T50 PO; +VITA250T7 PO
[2020-06-21 18:59] LABS: FREE T4 0.95 NG/DL (0.76-1.46); THYROID STIMULATING HORMONE 1.53 uIU/ML (0.358-3.740)
== END ==
LOC: M LAB REF 17:26
PROVIDERS: ATTEND Internal Medicine Nephrology
DX: Z94.0 Kidney transplant status (principal); N39.0 Urinary tract infection, site not specified

== ENCOUNTER → 2020-08-12 | Outpatient (CLI) | payer MEDICARE ==
--- NOTE | 2020-08-12 11:32 | REP ---
INDICATION: PAIN IN LEFT ELBOW COMPARISON: 12/25/2019. TECHNIQUE: AP and lateral left elbow. FINDINGS: There is no evidence of acute fracture, dislocation, or intrinsic bone disease.Multiple metallic clips are again seen in the soft tissues anteromedially, with adjacent vascular calcifications unchanged. Multiple small round soft tissue calcifications are seen posteromedially. IMPRESSION: No fracture or dislocation. No significant change compared to the prior study <Electronically signed by Narinder Garcia > 08/12/20 [id number]
== END ==
LOC: M RAD 10:45
PROVIDERS: ATTEND Internal Medicine Nephrology
DX: M25.552 Pain in left hip (principal)

== ENCOUNTER → 2020-08-30 | Outpatient (CLI) | payer MEDICARE ==
[2020-08-30 11:13] LABS: COLLAGEN EPINEPHRINE 101 SECONDS (74-162)
== END ==
LOC: M LAB 10:23
PROVIDERS: ATTEND Physical Medicine & Rehabilitation
DX: M48.061 Spinal stenosis, lumbar region without neurogenic claudication (principal)

== ENCOUNTER → 2020-09-17 | Outpatient (CLI) | payer MEDICARE ==
--- NOTE | 2020-09-17 14:05 | REP ---
INDICATION: STENOSIS. COMPARISON: Comparison is made with CT lumbar spine images from October 07, 2018.. TECHNIQUE: Sagittal and axial T1 and T2-weighted scans are acquired in the usual fashion with and without fat saturation. Sequences include spin echo, turbo spin-echo, and STIR imaging sequences. FINDINGS: There is a mild levoconvex scoliotic curve visible on coronal production control technologist views. There is straightening of the normal lumbar lordosis. There is no evidence of spondylolysis. There is however degenerative spondylolisthesis at L3-4 and L4-5 unchanged from the [address] study. Lumbar vertebral body heights are preserved. The tip of the conus medullaris is normal in position and appearance at T12-L1. No extra spinal abnormality is observed. Axial and sagittal images taken at the L1-L2 level show no evidence of disc protrusion, central canal stenosis, or foraminal narrowing. At L2-L3, there is moderate central canal stenosis due to diffuse disc bulging in combination with ligamentum flavum and facet hypertrophy. There is bilateral facet joint fluid and there is a arthritis associated cyst in the dorsal aspect of the spinal canal associated with the right L2-3 facet. This along with dorsal epidural fat contribute to the central canal stenosis. The midline AP dimension of the thecal sac at L2-3 is 6.6 mm. There is a cranially extruded focal disc protrusion on the right at L2-3. At the L3-4 disc level, there is degenerative disc narrowing. There is a 7 mm degenerative spondylolisthesis of L3 anterior with respect L4. There is diffuse disc bulging and moderate central canal stenosis results from these factors in combination with facet and ligamentum flavum hypertrophy. The midline AP dimension of the thecal sac at 3 4 is 7 mm. There is marked right-sided neural foraminal narrowing at L3-4 due to disc bulging and facet hypertrophy in combination with the spondylolisthesis. At L4-5, there is diffuse disc bulging. Ligamentum flavum and facet hypertrophy are present. There is left-sided neural foraminal narrowing due to these factors. At L 4 5 there is a degenerative 5 mm spondylolisthesis due to degenerative disc and facet disease. There is moderate central canal stenosis at L4-5 as well. Midline AP dimension of the thecal sac is 8 mm. At L5-S1, there is bilateral neural foraminal narrowing from facet hypertrophy and discogenic spurring. Mild diffuse disc bulging is seen and some facet hypertrophy is present but no spinal stenosis is noted. IMPRESSION: Advanced degenerative spondylosis changes. Multilevel spinal stenosis L2-3, L3-4, and L4-5. Multilevel neural foraminal narrowing as above. Degenerative spondylolisthesis at L3-4 and L4-5 unchanged from the comparison CT study. <Electronically signed by Bjorn Ellsworth > 09/17/20 1040
== END ==
LOC: M RAD 12:30
PROVIDERS: ATTEND Physical Medicine & Rehabilitation
DX: M48.061 Spinal stenosis, lumbar region without neurogenic claudication (principal); M51.26 Other intervertebral disc displacement, lumbar region; M43.16 Spondylolisthesis, lumbar region

== ENCOUNTER → 2020-09-20 | Outpatient (REF) | payer MEDICARE | LOC: M LAB REF 18:58 | PROVIDERS: ATTEND Internal Medicine Nephrology | DX: Z94.0 Kidney transplant status (principal); E83.40 Disorders of magnesium metabolism, unspecified; N39.0 Urinary tract infection, site not specified ==

== ENCOUNTER → 2020-11-29 | Outpatient (CLI) | payer MEDICARE ==
--- NOTE | 2020-11-29 11:05 | REPMRS ---
Patient History The patient states she had a clinical breast exam in November 2020. Family history of breast cancer under age 50 in maternal aunt, colorectal cancer under age 50 in maternal uncle, breast cancer in maternal cousin. No Hormone Replacement Therapy Patient states no breast complaints today. Patient has signed MRS History Sheet. Digital Woman Screen Mammo: November 29, 2020 - Exam #: [id number] Bilateral CC and MLO view(s) were taken. Technologist: Keisha Nino, Technologist Prior study comparison: November 27, 2019, bilateral digital woman screen mammo performed at [facility]. March 11, 2018, bilateral digital woman screen mammo performed at [facility]. March 27, 2017, digital woman screen mammo performed at [facility]. FINDINGS: The breast tissue is heterogeneously dense. This may lower the sensitivity of mammography. The Volpara volumetric breast density category is: C. There is a moderate amount of heterogeneously dense fibroglandular tissue which is fairly symmetric. There is no interval development of dominant mass, architectural distortion, or grouped microcalcification typical of malignancy. There has been no change in the appearance of the mammogram from the prior studies. 3-D tomosynthesis shows no additional findings. Assessment: BI-RADS/ACR category 1 mammogram. Negative Mammogram. Recommendation Routine screening mammogram of both breasts in 1 year (for women over age 40). This patient's [facility] Lifetime Breast Cancer RIsk is estimated at 4.8 %. This mammogram was interpreted with the aid of an FDA-approved computer-aided dectection system. Electronically Signed By: Bjorn Ellsworth MD 11/29/20 0684
--- NOTE | 2020-11-29 12:37 | DEXAMM ---
INDICATION: SCREENING FOR OSTEOPOROSIS. COMPARISON: March 01, 2015. TECHNIQUE: Bone density was measured using dual-energy x-ray absorptionmetry (DEXA). FINDINGS: AP SPINE L1-L4 BMD 1.236 g/cm2 Young Adult T-Score 0.3 Age Matched Z-Score 2.1. LT FEMUR, TOTAL BMD 0.631 g/cm2 Young Adult T-Score -3.0 Age Matched Z-Score -1.3. LT NECK BMD 0.728 g/cm2 Young Adult T-Score -2.2 Age Matched Z-Score -0.3. RT FEMUR, TOTAL BMD 0.553 g/cm2 Young Adult T-Score 8-3.6 Age Matched Z-Score -1.9. RT NECK BMD 0.685 g/cm2 Young Adult T-Score -2.5 Age Matched Z-Score -0.6. IMPRESSION: There is normal bone density of the spine. There is osteoporosis of the left hip. There is osteoporosis of the right hip. The density of the spine has increased 11.8% since the initial exam on November 27, 2000. The density of the spine increased 12.0% since the most recent exam on March 01, 2015. The density of the left hip has decreased 35.1% since the initial exam on November 27, 2000. The density of the left hip has decreased 6.0% since the most recent exam on March 01, 2015. The density of the right hip has decreased 36.8% since the initial exam on November 27, 2000. The density of the right hip has decreased 11.7% since the most recent exam on March 01, 2015. FOLLOW-UP: Recommendation for the next bone density exam: 2 years. <Electronically signed by Bjorn Ellsworth > 11/29/20 1234
== END ==
LOC: M WHC 09:44
PROVIDERS: ATTEND Nurse Practitioner Women's Health
DX: Z01.419 Encounter for gynecological examination (general) (routine) without abnormal findings (principal); Z12.31 Encounter for screening mammogram for malignant neoplasm of breast; Z78.0 Asymptomatic menopausal state; Z13.820 Encounter for screening for osteoporosis; Z80.3 Family history of malignant neoplasm of breast
CPT/HCPCS: 77063; 77067; 77080; G0101

== ENCOUNTER → 2020-12-09 | Outpatient (REF) | payer MEDICARE ==
[~2020-12-09] MED LIST changes: -LEVO250T12 PO; +LEVO250T3 PO; +LOSA50TA28 PO; -LOSA50TA88 PO
== END ==
LOC: M LAB REF 17:17
PROVIDERS: ATTEND Internal Medicine Nephrology
DX: N39.0 Urinary tract infection, site not specified (principal); Z94.0 Kidney transplant status; M62.81 Muscle weakness (generalized)

== ENCOUNTER → 2020-12-09 | Outpatient (REF) | payer MEDICARE ==
[2020-12-09 18:25] LABS: CREATININE,RANDOM URINE 85.3 MG/DL; TOTAL PROTEIN,RANDOM URINE 6.6 MG/DL (0.0-12.0)
== END ==
LOC: M LAB REF 17:20
PROVIDERS: ATTEND Pediatrics Pediatric Nephrology
DX: Z94.0 Kidney transplant status (principal); N18.5 Chronic kidney disease, stage 5; D84.9 Immunodeficiency, unspecified; Z79.899 Other long term (current) drug therapy; N39.0 Urinary tract infection, site not specified; M62.81 Muscle weakness (generalized)

== ENCOUNTER → 2021-04-04 | Outpatient (REF) | payer MEDICARE ==
[2021-04-04 13:53] LABS: FREE T4 0.95 NG/DL (0.76-1.46); THYROID STIMULATING HORMONE 1.57 uIU/ML (0.358-3.740)
[2021-04-04 21:47] LABS: MAGNESIUM LEVEL 2.2 MG/DL (1.7-2.2)
== END ==
LOC: M LAB REF 13:25
PROVIDERS: ATTEND Internal Medicine Nephrology
DX: Z94.0 Kidney transplant status (principal); E03.9 Hypothyroidism, unspecified; M62.81 Muscle weakness (generalized)